=== PATIENT | female | born 1945 | race Caucasian/White ===

== ENCOUNTER → 2018-03-03 | Outpatient (CLI) | payer MEDICARE ==
--- NOTE | 2018-03-03 14:30 | XR ---
EXAMINATION TYPE: XR chest 2V DATE OF EXAM: 03/03/2018 COMPARISON: NONE HISTORY: Cough and shortness of breath TECHNIQUE: Frontal and lateral views of the chest are obtained. FINDINGS: Some strand-like densities are present within the right middle lobe. Cardiac mediastinal s ilhouette, pulmonary vascularity and paulie are within normal limits. Patient is slightly rotated. No p neumothorax or pleural effusion. Atherosclerotic calcifications are noted incidentally. IMPRESSION: There may be some minimal atelectasis or scarring in the right middle lobe, follow-up is recommended to resolution.
== END | disposition home or self-care (01) ==
LOC: RADXRMAIN 10:16
PROVIDERS: ATTEND Family Medicine
DX: R06.02 Shortness of breath (principal)
CPT/HCPCS: 71046

== ENCOUNTER → 2018-07-13 | Outpatient (CLI) | payer MEDICARE ==
--- NOTE | 2018-07-13 14:18 | XR ---
Left hand HISTORY: Chronic joint pain in hand 3 views of the left hand, no comparisons There is joint space loss, hypertrophic change of the carpometacarpal joint of the first digit. The l unate show some lucency possibly due to underlying geode formation. Small ossification is present at the level of the scaphoid waist within the soft tissues laterally measuring only 1 mm of questionable clinical significance, consider remote trauma. Alignment and bone mineralization are within normal l imits. IMPRESSION: Osteoarthritis. Possible geodes within the lunate bone, wrist MRI may be of benefit.
== END ==
LOC: RADXRMAIN 11:22
PROVIDERS: ATTEND Family Medicine
DX: M19.042 Primary osteoarthritis, left hand (principal)

== ENCOUNTER → 2018-08-01 | Outpatient (CLI) | payer MEDICARE ==
--- NOTE | 2018-08-02 11:55 | MR ---
EXAMINATION TYPE: MR wrist LT wo con DATE OF EXAM: 08/01/2018 COMPARISON: 07/13/2018 left hand HISTORY: Wrist pain Standard multiplanar, multisequence MRI departmental protocol Multiplanar, multisequence images of the left wrist were acquired. No Gadavist was utilized. FINDINGS: Flexor retinaculum appears normal. Flexor and extensor tendons have normal low signal. Medi an nerve appears unremarkable. There is diffuse mild increased signal within the lunate. Typical simple cyst is not identified howev er. Consider avascular necrosis of the lunate. Scapholunate space appears preserved the scapholunate ligament however is poorly visualized. Triangul ar fibrocartilage is intact. Remaining osseous structures appear intact. There are some degenerative type changes noted at the carpal metacarpal junction of the first digit. IMPRESSION: 1. Typical subchondral cyst formation within the lunate is not identified. However there is increased signal in a heterogenous distribution. Consider avascular necrosis of lunate within the differential . 2. Scapholunate ligament is not clearly identified. The space however appears preserved.
== END | disposition home or self-care (01) ==
LOC: RADMRIMAIN 12:14
PROVIDERS: ATTEND Family Medicine
DX: M25.832 Other specified joint disorders, left wrist (principal); M89.8X3 Other specified disorders of bone, forearm

== ENCOUNTER → 2018-08-11 | Outpatient (CLI) | payer MEDICARE ==
--- NOTE | 2018-08-11 13:06 | US ---
EXAMINATION TYPE: US gallbladder DATE OF EXAM: 08/11/2018 COMPARISON: NONE CLINICAL HISTORY: K80.20 Cholecystitis. EXAM MEASUREMENTS: Liver Length: 12.7 x 9.1 x 4.0 cm Gallbladder Wall: 0.3 cm CBD: 0.3 cm Right Kidney: 9.1 x 4.0 x 4.2 cm Excessive overlying bowel gas, technically difficult study. Pancreas: Obscured by bowel gas Liver: liver cyst noted measuring 2.3 x 1.9 x 1.4cm Gallbladder: wall appears upper limits of normal in size, limited views due to overlying bowel Evidence for sonographic Rice's sign: CBD: wnl Right Kidney: inferior pole obscured by overlying bowel gas IMPRESSION: 1. Hepatic cyst 2. Gallbladder appears upper limits of normal size with no diagnostic evidence of gallstones. If ther e is concern for gallbladder dysfunction consider HIDA scan.
== END | disposition home or self-care (01) ==
LOC: RADUSMAIN 12:08
PROVIDERS: ATTEND Surgery Plastic and Reconstructive Surgery
DX: K76.89 Other specified diseases of liver (principal)
CPT/HCPCS: 76705

== ENCOUNTER → 2018-08-17 | Outpatient (CLI) | payer MEDICARE ==
--- NOTE | 2018-08-17 16:56 | NM ---
EXAMINATION TYPE: NM hepatobiliary w EF DATE OF EXAM: 08/17/2018 COMPARISON: Ultrasound gallbladder 08/11/2018 HISTORY: Cholecystitis TECHNIQUE: After the intravenous administration of 5.08 mCi Tc 99m Mebrofenin hepatobiliary scintigra phy is performed. Immediate images post injection. FINDINGS: There is satisfactory initial accumulation of tracer by the liver. The gallbladder is visualized wit hin 26 minutes. The small bowel activity is noted within 12 minutes. At one hour 8 ounces of oral e nsure plus is given to mimic CCK and gallbladder ejection fraction is calculated at 76 %, in the norm al range. Therefore there is no scintigraphic evidence of cystic or common bile duct obstruction to suggest acute cholecystitis or gallbladder dyskinesia. IMPRESSION: Exam is within normal limits.
== END | disposition home or self-care (01) ==
LOC: RADNMMAIN 12:53
PROVIDERS: ATTEND Surgery Plastic and Reconstructive Surgery
DX: K80.20 Calculus of gallbladder without cholecystitis without obstruction (principal)
CPT/HCPCS: 78226; A9537

== ENCOUNTER 2018-10-07 08:15 | Day surgery (SDC) | payer MEDICARE ==
[2018-10-01 16:19] VITALS: BMI 22.4
[~2018-10-07 08:15] MED LIST: LIDOCAINE 1% 20 ML VIAL (10MG/ML) FOR IV START INTRADERMA PRN
--- NOTE | 2018-10-07 08:49 | P.GSHP ---
History of Present Illness H&P Date: 10/07/18 CHIEF COMPLAINT: GERD and colon screen HISTORY OF PRESENT ILLNESS: The patient is a 73-year-old female who presents with gastroesophageal reflux disease and need for colon screen. Upper and lower endoscopy were offered for further evaluation and management. PAST MEDICAL HISTORY: Please see list. PAST SURGICAL HISTORY: Please see list. MEDICATIONS: Please see list. ALLERGIES: Please see list. SOCIAL HISTORY: No illicit drug use FAMILY HISTORY: No reports of Crohn disease or ulcerative colitis. REVIEW OF ORGAN SYSTEMS: CONSTITUTIONAL: No reports of fevers or chills. GI: Denies any blood in stools or constipation. PHYSICAL EXAM: VITAL SIGNS: Stable GENERAL: Well-developed pleasant in no acute distress. HEENT: No scleral icterus. Extraocular movements grossly intact. Moist buccal mucosa. NECK: Supple without lymphadenopathy. CHEST: Unlabored respirations. Equal bilateral excursions. CARDIOVASCULAR: Regular rate and rhythm. Distal 2+ pulses. ABDOMEN: Soft, nondistended. MUSCULOSKELETAL: No clubbing, cyanosis, or edema. ASSESSMENT: 1. Gastroesophageal reflux disease 2. Colon screen. PLAN: 1. Recommend proceeding with an upper and lower endoscopy Past Medical History Past Medical History: CVA/TIA, GERD/Reflux, Hyperlipidemia, Hypertension, Liver Disease, Thyroid Disorder Additional Past Medical History / Comment(s): hx hepatitis b. hx colon polyps, indigestion,recent issue with blood pressure dropping History of Any Multi-Drug Resistant Organisms: None Reported Past Surgical History: No Surgical Hx Reported Additional Past Anesthesia/Blood Transfusion Reaction / Comment(s): pt reports hepatitis b from blood transfusion Smoking Status: Never smoker - Past Family History Father Family Medical History: Cancer Medications and Allergies Home Medications Medication Instructions Recorded Confirmed Type Aspirin [Adult Low Dose Aspirin EC] 81 mg PO DAILY 10/01/18 10/01/18 History Atorvastatin [Lipitor] 20 mg PO DAILY 10/01/18 10/01/18 History Biotin 5,000 mcg PO DAILY 10/01/18 10/01/18 History Calcium Magnesium Zinc 1 tab PO DAILY 10/01/18 10/01/18 History Cholecalciferol [Vitamin D3] 1,000 unit PO DAILY 10/01/18 10/01/18 History Hydrochlorothiazide [Hydrodiuril] 12.5 mg PO DAILY 10/01/18 10/01/18 History Levothyroxine Sodium [Synthroid] 25 mcg PO DAILY 10/01/18 10/01/18 History Lisinopril [Zestril] 30 mg PO DAILY 10/01/18 10/01/18 History Multivitamin/Iron/Folic Acid 1 each PO DAILY 10/01/18 10/01/18 History [Centrum Adults Tablet] Venlafaxine HCl [Effexor XR] 150 mg PO DAILY 10/01/18 10/01/18 History Allergies Allergy/AdvReac Type Severity Reaction Status Date / Time No Known Allergies Allergy Unverified 10/01/18 15:45
[2018-10-07 09:08] VITALS: TEMP 96.6
[2018-10-07] MEDS: LACTATED RINGERS 1,000 ML IV SCH ×2 (09:12→09:13)
[2018-10-07] MEDS ORDERED: PROPOFOL 10 MG/ML 20 ML VIAL IV ONE (09:14)
[2018-10-07] MEDS ORDERED: GLYCOPYRROLATE 0.2 MG/ML 2 ML VIAL ONE (09:14)
[2018-10-07] MEDS ORDERED: LIDOCAINE 1% INJ 10MG/ML (20 ML MDV) ONE (09:14)
--- NOTE | 2018-10-07 09:47 | P.PCN ---
Date of Procedure: 10/07/18 Description of Procedure: PREOPERATIVE DIAGNOSIS: Gastroesophageal reflux disease. History of gastric ulcers POSTOPERATIVE DIAGNOSIS: Gastroesophageal reflux disease. Gastric ulcers along the gastric fundus Diaphragmatic hiatal hernia OPERATION: Esophagogastroduodenoscopy with biopsies along antrum. SURGEON: Chanda Peraza MD ANESTHESIA: MAC. INDICATIONS: The patient is a 44-year-old female who presents with a history of reflux disease. Benefits and risks of the procedure were described. Informed consent was obtained. DESCRIPTION: The patient was brought into the endoscopy suite and laid in the left lateral decubitus position. An Olympus gastroscope was passed along the posterior oropharynx down to the distal esophagus where the squamocolumnar junction was encountered at 35 cm from the incisors. The stomach was entered and no bile reflux was found. Additional findings are listed below. Biopsies with cold forceps were obtained of the antrum. The first through third portion of the duodenum was examined and unremarkable. Retroflexion of the scope confirmed Hill grade 2 lower esophageal valve. The squamocolumnar junction demonstrated LA grade A erosive esophagitis. The stomach was desufflated. The patient tolerated the procedure well. FINDINGS: Squamocolumnar junction 35 cm from the incisors. Diaphragmatic hiatus at 40 cm. Hiatal hernia, 5 cm Hill grade 2 lower esophageal valve. LA grade A erosive esophagitis. Hypertensive pylorus No active duodenitis. Gastric ulcer, superficial along gastric fundus biopsied RECOMMENDATIONS: Upper endoscopy as needed.
--- NOTE | 2018-10-07 09:50 | P.PCN ---
Date of Procedure: 10/07/18 Description of Procedure: PREOPERATIVE DIAGNOSIS: Personal history of colon polyps POSTOPERATIVE DIAGNOSIS: Personal history of colon polyps Diverticulosis, scattered. Internal and external hemorrhoids, grade 4 OPERATION: Colonoscopy to the ileocecal valve and appendiceal orifice. SURGEON: Chanda Peraza MD. ANESTHESIA: MAC. INDICATIONS: The patient is a 73-year-old female who presents for colonoscopy screening. She has history of colon polyps. Last colonoscopy 5 years ago. Benefits and risks were described and informed consent was obtained. DESCRIPTION OF PROCEDURE: The patient had undergone Gatorade, MiraLAX and Dulcolax prep. She had been brought into the operating room and laid in the left lateral decubitus position. After adequate intravenous sedation, the rectum was examined with 2% lidocaine jelly. Large external hemorrhoids were encountered. The rectal tone was within normal limits. No lesions were palpated in the rectal vault. An Olympus colonoscope was advanced until the ileocecal valve and appendiceal orifice were clearly viewed. The prep was excellent with clear visualization of the mucosal folds. She had mild bradycardia during advancement of the scope along the splenic flexure treated by anesthesia. Abdominal wall pressure was used to advance the scope. The scope was removed with visualization of each mucosal fold. Scattered diverticulosis was encountered. No colonic polyps were found. No evidence of focal colitis was found. Retroflexion of the scope demonstrated grade 4 internal hemorrhoids without active bleeding or inflammation. The colon was desufflated. The patient had tolerated the procedure well. Withdrawal time was over 6 minutes. FINDINGS: Internal hemorrhoids, grade 4 External prolapsed hemorrhoids, grade 4 No arteriovenous malformations. No adenomatous polyps. No focal colitis. Sigmoid diverticulosis RECOMMENDATIONS: May benefit from [facility] Lower endoscopy in 5 years, 2022, as needed Plan - Discharge Summary New Discharge Prescriptions: No Action Cholecalciferol [Vitamin D3] 1,000 unit PO DAILY Biotin 5,000 mcg PO DAILY Venlafaxine HCl [Effexor XR] 150 mg PO DAILY Multivitamin/Iron/Folic Acid [Centrum Adults Tablet] 1 each PO DAILY Aspirin [Adult Low Dose Aspirin EC] 81 mg PO DAILY Lisinopril [Zestril] 30 mg PO DAILY Levothyroxine Sodium [Synthroid] 25 mcg PO DAILY Calcium Magnesium Zinc 1 tab PO DAILY Hydrochlorothiazide [Hydrodiuril] 12.5 mg PO DAILY Atorvastatin [Lipitor] 20 mg PO DAILY Discharge Medication List Aspirin [Adult Low Dose Aspirin EC] 81 mg PO DAILY 10/01/18 [History] Atorvastatin [Lipitor] 20 mg PO DAILY 10/01/18 [History] Biotin 5,000 mcg PO DAILY 10/01/18 [History] Calcium Magnesium Zinc 1 tab PO DAILY 10/01/18 [History] Cholecalciferol [Vitamin D3] 1,000 unit PO DAILY 10/01/18 [History] Hydrochlorothiazide [Hydrodiuril] 12.5 mg PO DAILY 10/01/18 [History] Levothyroxine Sodium [Synthroid] 25 mcg PO DAILY 10/01/18 [History] Lisinopril [Zestril] 30 mg PO DAILY 10/01/18 [History] Multivitamin/Iron/Folic Acid [Centrum Adults Tablet] 1 each PO DAILY 10/01/18 [ History] Venlafaxine HCl [Effexor XR] 150 mg PO DAILY 10/01/18 [History]
[2018-10-07 09:56] VITALS: RESP 16
[2018-10-07 10:45] VITALS: BP 110/60; PULSE 88
== END 2018-10-07 10:43 | disposition home or self-care (01) ==
LOC: ORWHC2ENDO 08:15
PROVIDERS: ATTEND Surgery Plastic and Reconstructive Surgery
DX: Z12.11 Encounter for screening for malignant neoplasm of colon (principal); K22.10 Ulcer of esophagus without bleeding; K44.9 Diaphragmatic hernia without obstruction or gangrene; K25.9 Gastric ulcer, unspecified as acute or chronic, without hemorrhage or perforation; K57.30 Diverticulosis of large intestine without perforation or abscess without bleeding; K64.3 Fourth degree hemorrhoids; Z86.010 Personal history of colon polyps; R00.1 Bradycardia, unspecified; K21.9 Gastro-esophageal reflux disease without esophagitis; E78.5 Hyperlipidemia, unspecified; I10 Essential (primary) hypertension; E07.9 Disorder of thyroid, unspecified; F39 Unspecified mood [affective] disorder; Z86.73 Personal history of transient ischemic attack (TIA), and cerebral infarction without residual deficits; Z87.11 Personal history of peptic ulcer disease; Z86.19 Personal history of other infectious and parasitic diseases; Z79.82 Long term (current) use of aspirin; Z79.890 Hormone replacement therapy; Z79.899 Other long term (current) drug therapy
CPT/HCPCS: 88305; 43239; J2001; J2704; G0105; 45378

== ENCOUNTER → 2019-03-08 | Outpatient (CLI) | payer MEDICARE ==
--- NOTE | 2019-03-08 11:56 | XR ---
EXAMINATION TYPE: XR chest 2V DATE OF EXAM: 03/08/2019 COMPARISON: 03/03/2018 TECHNIQUE: PA and lateral views submitted. HISTORY: Cough FINDINGS: The lungs are clear and there is no pneumothorax, pleural effusion, or focal pneumonia. Biapical pl eural thickening. No overt failure. Hypertrophic and degenerative changes spine. Hyperinflation sugge sts COPD. IMPRESSION: 1. No acute process.
== END | disposition home or self-care (01) ==
LOC: RADXRMAIN 11:31
PROVIDERS: ATTEND Family Medicine
DX: J94.8 Other specified pleural conditions (principal)
CPT/HCPCS: 71046

== ENCOUNTER → 2020-01-18 | Outpatient (CLI) | payer MEDICARE ==
--- NOTE | 2020-01-18 16:15 | NM ---
EXAMINATION TYPE: NM hepatobiliary w EF DATE OF EXAM: 01/18/2020 COMPARISON: Previous exam 08/17/2018 HISTORY: Cholecystitis TECHNIQUE: After the intravenous administration of 4.38 mCi Tc 99m Mebrofenin hepatobiliary scintigra phy is performed. Immediate images post injection. FINDINGS: There is satisfactory initial accumulation of tracer by the liver. The gallbladder is visualized wit hin 26 minutes. The small bowel activity is noted within 16 minutes. At one hour 8 ounces of oral e nsure plus is given to mimic CCK and gallbladder ejection fraction is calculated at 90 %, above the u pper limit of the normal range. Therefore there is no scintigraphic evidence of cystic or common kelin e duct obstruction to suggest acute cholecystitis or gallbladder dyskinesia. IMPRESSION: Findings may represent hyper dynamic gallbladder.
== END | disposition home or self-care (01) ==
LOC: RADNMMAIN 12:48
PROVIDERS: ATTEND Surgery Plastic and Reconstructive Surgery
DX: K81.9 Cholecystitis, unspecified (principal)
CPT/HCPCS: 78226; A9537

== ENCOUNTER 2020-02-03 08:06 | Day surgery (SDC) | payer MEDICARE ==
[2020-02-01 08:55] VITALS: BMI 23.3
[~2020-02-03 08:06] MED LIST changes: +LACTATED RINGERS 1,000 ML IV SCH; +LIDOCAINE 1% (10MG/ML) FOR IV START INTRADERMA PRN; -LIDOCAINE 1% 20 ML VIAL (10MG/ML) FOR IV START INTRADERMA PRN
[2020-02-03 09:09] VITALS: RESP 16; TEMP 98.3
--- NOTE | 2020-02-03 10:13 | P.GSHP ---
History of Present Illness H&P Date: 02/03/20 CHIEF COMPLAINT: Colon screen HISTORY OF PRESENT ILLNESS: The patient is a 74-year-old female who presents for colon screen. Lower endoscopy was offered for further evaluation and management. PAST MEDICAL HISTORY: Please see list. PAST SURGICAL HISTORY: Please see list. MEDICATIONS: Please see list. ALLERGIES: Please see list. SOCIAL HISTORY: No illicit drug use FAMILY HISTORY: No reports of Crohn disease or ulcerative colitis. REVIEW OF ORGAN SYSTEMS: CONSTITUTIONAL: No reports of fevers or chills. PHYSICAL EXAM: VITAL SIGNS: Stable GENERAL: Well-developed pleasant in no acute distress. HEENT: No scleral icterus. Extraocular movements grossly intact. Moist buccal mucosa. NECK: Supple without lymphadenopathy. CHEST: Unlabored respirations. Equal bilateral excursions. CARDIOVASCULAR: Regular rate and rhythm. Distal 2+ pulses. ABDOMEN: Soft, nontender, nondistended. MUSCULOSKELETAL: No clubbing, cyanosis, or edema. ASSESSMENT: 1. Colon screen. PLAN: 1. Recommend proceeding with a lower endoscopy Past Medical History Past Medical History: CVA/TIA, GERD/Reflux, Hyperlipidemia, Hypertension, Liver Disease, Rheumatoid Arthritis (RA), Skin Disorder, Thyroid Disorder Additional Past Medical History / Comment(s): hx hepatitis b, hx colon polyps, hx TIA- no residual effects, peptic ulcer, hiatal hernia, diarrhea, diverticulitis, diverticulosis, "gallbladder not working", skin scaling and itching of scalp, urinary leakage, History of Any Multi-Drug Resistant Organisms: None Reported Past Surgical History: No Surgical Hx Reported Additional Past Surgical History / Comment(s): oral sugery, colonoscopy, kelin cataracts Additional Past Anesthesia/Blood Transfusion Reaction / Comment(s): pt reports hepatitis b from blood transfusion Smoking Status: Never smoker - Past Family History Father Family Medical History: Cancer Medications and Allergies Home Medications Medication Instructions Recorded Confirmed Type Aspirin [Adult Low Dose Aspirin EC] 81 mg PO DAILY 10/01/18 02/03/20 History Atorvastatin [Lipitor] 20 mg PO DAILY 10/01/18 02/03/20 History Biotin 5,000 mcg PO DAILY 10/01/18 02/03/20 History Cholecalciferol [Vitamin D3] 1,000 unit PO DAILY 10/01/18 02/03/20 History Levothyroxine Sodium [Synthroid] 25 mcg PO DAILY 10/01/18 02/03/20 History Lisinopril [Zestril] 30 mg PO DAILY 10/01/18 02/03/20 History Multivitamin/Iron/Folic Acid 1 each PO DAILY 10/01/18 02/03/20 History [Centrum Adults Tablet] Lactobacillus Rhamnosus GG 1 each PO DAILY 02/01/20 02/03/20 History [Culturelle] Mirabegron [Myrbetriq] 50 mg PO DAILY 02/01/20 02/03/20 History Mood And Stress Probiotic 1 cap PO DIRECTED PRN 02/01/20 02/03/20 History Omeprazole 20 mg PO DAILY PRN 02/01/20 02/03/20 History Allergies Allergy/AdvReac Type Severity Reaction Status Date / Time No Known Allergies Allergy Unverified 02/03/20 09:02 Surgical - Exam Vital Signs Temp Pulse Resp BP Pulse Ox 98.3 F 66 16 128/60 98 02/03/20 08:59 02/03/20 08:59 02/03/20 08:59 02/03/20 08:59 02/03/20 08:59
[2020-02-03] MEDS ORDERED: PROPOFOL 10 MG/ML 20 ML VIAL IV ONE (10:18)
--- NOTE | 2020-02-03 10:49 | P.PCN ---
Date of Procedure: 02/03/20 Description of Procedure: PREOPERATIVE DIAGNOSIS: Diarrhea Change in bowel habits POSTOPERATIVE DIAGNOSIS: Diarrhea Change in bowel habits Diverticulosis, scattered Microscopic colitis OPERATION: Colonoscopy to the ileocecal valve and appendiceal orifice. Colonoscopy with random cold forceps biopsies for microscopic colitis SURGEON: Chanda Peraza MD. ANESTHESIA: MAC. INDICATIONS: The patient is a 74-year-old female who presents with change in bowel habits and diarrhea. Benefits and risks were described and informed consent was obtained. DESCRIPTION OF PROCEDURE: The patient had undergone Suprep. He had been brought into the operating room and laid in the left lateral decubitus position. After adequate intravenous sedation, the rectum was examined with 2% lidocaine jelly. External hemorrhoids were encountered. The rectal tone was within normal limits. No lesions were palpated in the rectal vault. An adult colonoscope was advanced to the descending colon however a stricture was identified from diverticulosis. The scope was changed to a pediatric colonoscope. An Olympus colonoscope was advanced until the ileocecal valve and appendiceal orifice were clearly viewed. The prep was excellent with clear visualization of the mucosal folds. The scope was removed with visualization of each mucosal fold. Scattered diverticulosis was encountered. No colonic polyps were found. Random biopsies were obtained throughout the colon to address microscopic colitis. Stool cultures were obtained for C. diff, stool cultures, and stool assays. Retroflexion of the scope demonstrated grade 3 internal hemorrhoids without active bleeding or inflammation. The colon was desufflated. The patient had tolerated the procedure well. Withdrawal time was over 6 minutes. FINDINGS: Aronchick preparation quality scale 1 (1-5) Internal hemorrhoids, grade 3 External prolapsed hemorrhoids. No arteriovenous malformations. No adenomatous polyps. Stricture alone descending colon 50 cm from the anal verge requiring pediatric colonoscope Random biopsies obtained to evaluate for microscopic colitis Stool assays and stool cultures obtained for colitis RECOMMENDATIONS: Lower endoscopy as needed Plan - Discharge Summary New Discharge Prescriptions: Continue Cholecalciferol [Vitamin D3 (25 Mcg = 1000 Iu)] 1,000 unit PO DAILY Biotin 5,000 mcg PO DAILY Multivitamin/Iron/Folic Acid [Centrum Adults Tablet] 1 each PO DAILY Aspirin [Adult Low Dose Aspirin EC] 81 mg PO DAILY Lisinopril [Zestril] 30 mg PO DAILY Levothyroxine Sodium [Synthroid] 25 mcg PO DAILY Atorvastatin [Lipitor] 20 mg PO DAILY Lactobacillus Rhamnosus GG [Culturelle] 1 each PO DAILY Mirabegron [Myrbetriq] 50 mg PO DAILY Omeprazole 20 mg PO DAILY PRN PRN Reason: gerd Mood And Stress Probiotic 1 cap PO DIRECTED PRN PRN Reason: stressl Discharge Medication List Aspirin [Adult Low Dose Aspirin EC] 81 mg PO DAILY 10/01/18 [History] Atorvastatin [Lipitor] 20 mg PO DAILY 10/01/18 [History] Biotin 5,000 mcg PO DAILY 10/01/18 [History] Cholecalciferol [Vitamin D3 (25 Mcg = 1000 Iu)] 1,000 unit PO DAILY 10/01/18 [History] Levothyroxine Sodium [Synthroid] 25 mcg PO DAILY 10/01/18 [History] Lisinopril [Zestril] 30 mg PO DAILY 10/01/18 [History] Multivitamin/Iron/Folic Acid [Centrum Adults Tablet] 1 each PO DAILY 10/01/18 [History] Lactobacillus Rhamnosus GG [Culturelle] 1 each PO DAILY 02/01/20 [History] Mirabegron [Myrbetriq] 50 mg PO DAILY 02/01/20 [History] Mood And Stress Probiotic 1 cap PO DIRECTED PRN 02/01/20 [History] Omeprazole 20 mg PO DAILY PRN 02/01/20 [History] Follow up Appointment(s)/Referral(s): Chanda Peraza MD [STAFF PHYSICIAN] - 02/17/20 Patient Instructions/Handouts: Microscopic Colitis (DC), Diverticulosis Diet (GEN), Diverticulosis (DC) Activity/Diet/Wound Care/Special Instructions: Colonoscopy as needed Discharge Disposition: HOME SELF-CARE
[2020-02-03 11:26] VITALS: BP 110/68; PULSE 67
== END 2020-02-03 11:43 | disposition home or self-care (01) ==
LOC: ORWHC2ENDO 08:06
PROVIDERS: ATTEND Surgery Plastic and Reconstructive Surgery
DX: K52.9 Noninfective gastroenteritis and colitis, unspecified (principal); K57.30 Diverticulosis of large intestine without perforation or abscess without bleeding; K64.4 Residual hemorrhoidal skin tags; K56.609 Unspecified intestinal obstruction, unspecified as to partial versus complete obstruction; K64.2 Third degree hemorrhoids; I10 Essential (primary) hypertension; E78.5 Hyperlipidemia, unspecified; K21.9 Gastro-esophageal reflux disease without esophagitis; M06.9 Rheumatoid arthritis, unspecified; Z79.890 Hormone replacement therapy; Z79.82 Long term (current) use of aspirin; Z79.899 Other long term (current) drug therapy; Z86.73 Personal history of transient ischemic attack (TIA), and cerebral infarction without residual deficits; Z86.19 Personal history of other infectious and parasitic diseases; Z86.010 Personal history of colon polyps; Z87.11 Personal history of peptic ulcer disease; Z98.41 Cataract extraction status, right eye; Z98.42 Cataract extraction status, left eye; Z98.890 Other specified postprocedural states; Z80.9 Family history of malignant neoplasm, unspecified
CPT/HCPCS: 88305; 87324; 83993; 87045; 83630; 87046; 45380; J2704

== ENCOUNTER → 2021-10-26 | Outpatient (CLI) | payer MEDICARE ==
--- NOTE | 2021-10-26 11:17 | XR ---
EXAMINATION TYPE: XR chest 2V DATE OF EXAM: 10/26/2021 COMPARISON: 03/08/2019 TECHNIQUE: PA and lateral views submitted. HISTORY: Cough FINDINGS: The lungs are clear and there is no pneumothorax, pleural effusion, or focal pneumonia. Heart size normal. Biapical pleural thickening. No overt failure. Hypertrophic and degenerative change of the sp ine. Linear changes in the retrosternal region likely related atelectasis or scar. Diffuse osteopenia . IMPRESSION: 1. No acute process. Correlate for COPD.
== END | disposition home or self-care (01) ==
LOC: RADXRMAIN 10:12
PROVIDERS: ATTEND Family Medicine
DX: R05.9 Cough, unspecified (principal)
CPT/HCPCS: 71046

== ENCOUNTER → 2021-12-10 | Outpatient (CLI) | payer MEDICARE ==
--- NOTE | 2021-12-10 13:07 | US ---
EXAMINATION TYPE: US pelvis complete transvag DATE OF EXAM: 12/10/2021 COMPARISON: NONE CLINICAL HISTORY: R19.00 Pelvic Mass. Pelvic mass seen by ordering physician at outside facility per patient TECHNIQUE: Transvaginal (TV) and Transabdominal (TA) . Transabdominal sonographic images of the pel vis were acquired. Transvaginal sonographic images were medically necessary to better assess the fol lowing anatomy: Uterus Date of LMP: Patient states in her 50's EXAM MEASUREMENTS: Uterus: 4.1 x 3.0 x 2.0 cm Endometrial Stripe: 0.2 cm Right Ovary: not seen cm Left Ovary: not seen cm 1. Uterus: Anteverted Heterogeneous with no focal mass seen 2. Endometrium: echogenic 3. Right Ovary: not seen 4. Left Ovary: not seen 5. Bilateral Adnexa: Multiple peristalsing bowel loops 6. Posterior cul-de-sac: Multiple peristalsing bowel loops No pelvic mass seen at this time, Multiple peristalsing bowel loops seen. IMPRESSION: 1. Examination is somewhat limited due to multiple loops of bowel present. 2. No suspicious mass identified
== END | disposition home or self-care (01) ==
LOC: RADUSWWP 12:15
PROVIDERS: ATTEND Family Medicine
DX: R19.00 Intra-abdominal and pelvic swelling, mass and lump, unspecified site (principal)
CPT/HCPCS: 76830; 76856

== ENCOUNTER → 2022-04-02 | Outpatient (CLI) | payer MEDICARE ==
--- NOTE | 2022-04-03 03:07 | MR ---
EXAMINATION TYPE: MR brain wo con DATE OF EXAM: 04/02/2022 COMPARISON: None HISTORY: Headaches. Multiplanar multiecho imaging of the brain performed without contrast. The ventricles and sulci appear normal for age. There is no mass effect or midline shift. There is no sign of intracranial hemorrhage. Corpus callosum is intact. Diffusion images show no evidence of an acute infarct. On the T2 and FLAIR images there are a few foci of increased signal in the white matter in both poste rior temporal lobes and occipital lobes that measure up to 4 mm. Total numbers less than 10. Sella turcica is normal. No evidence of orbital mass. IMPRESSION: There is minimal white matter changes that could relate to some mild microvascular ischemia. Otherwis e negative exam. No evidence of cortical infarct.
--- NOTE | 2022-04-03 07:07 | MR ---
EXAMINATION TYPE: MR angio head wo con DATE OF EXAM: 04/02/2022 COMPARISON: NONE HISTORY: Headaches. TECHNIQUE: Time of flight images focusing on the [place] of [place] were performed without contrast.. 2-D and 3-D postprocessing imaging is performed on independent workstation and reviewed. FINDINGS: Codominant vertebral arteries patent to basilar junction. Patent bilateral posterior commun icating arteries including larger caliber right sided artery. Patent anterior communicating artery ne ar image 106. No significant focal stenosis or aneurysm in the posterior or anterior circulation. IMPRESSION: No aneurysm at the level of the [place] of [place].
== END | disposition home or self-care (01) ==
LOC: RADMRIMAIN 14:25
PROVIDERS: ATTEND Family Medicine
DX: R51.9 Headache, unspecified (principal); R90.89 Other abnormal findings on diagnostic imaging of central nervous system
CPT/HCPCS: 70544; 70551

== ENCOUNTER → 2022-04-17 | Outpatient (CLI) | payer MEDICARE ==
--- NOTE | 2022-04-17 20:49 | CT ---
EXAMINATION TYPE: CT abdomen pelvis wo con DATE OF EXAM: 04/17/2022 COMPARISON: No previous CT scan is available for comparison HISTORY: diverticulitis of sigmoid colon w/o rupture CT DLP: 349.50 mGycm Automated exposure control for dose reduction was used. TECHNIQUE: Helical acquisition of images was performed from the lung bases through the pelvis. FINDINGS: LUNG BASES: Bilateral anterior basal subsegmental pulmonary atelectasis. Coronary arterial calcificat ions. LIVER/GB: 3.5 cm right hepatic lobe cyst. No other definite hepatic focal lesion by this unenhanced C T scan. Grossly unremarkable gallbladder. PANCREAS: No significant abnormality is seen. SPLEEN: No significant abnormality is seen. ADRENALS: No significant abnormality is seen. KIDNEYS: No significant abnormality is seen. FREE AIR: No free air is visualized RETROPERITONEAL ADENOPATHY: None visualized REPRODUCTIVE ORGANS: No gross uterine or adnexal mass. URINARY BLADDER: No significant abnormality is seen. PELVIC ADENOPATHY: None visualized. OSSEOUS STRUCTURES: Suspected osteopenia. Degenerative changes of the lower lumbar spine. No aggress delia bone lesion. BOWEL: Unremarkable stomach. Duodenal diverticulum, otherwise unremarkable duodenum and small bowel. Colonic diverticulosis most evident involving the sigmoid colon. No evidence of acute diverticulitis . Fecal loading of the colon suggestive of constipation. OTHER: Arterial atherosclerotic calcification. No sizable ascites. IMPRESSION: Colonic diverticulosis without evidence of acute diverticulitis. Suspected constipation, please corre late clinically. Other findings as detailed above.
== END | disposition home or self-care (01) ==
LOC: RADCTMAIN 14:42
PROVIDERS: ATTEND Surgery Plastic and Reconstructive Surgery
DX: K57.30 Diverticulosis of large intestine without perforation or abscess without bleeding (principal)
CPT/HCPCS: 36415; 74176; 82565; 84520

== ENCOUNTER → 2022-08-15 | Outpatient (CLI) | payer MEDICARE ==
[2022-08-15 18:49] LABS: HCT 37.6 % (37.2-46.3); HGB 12.5 g/dL (12.0-15.0); MCH 30.4 pg (27.0-32.0); MCHC 33.2 g/dL (32.0-37.0); MCV 91.5 fL (80.0-97.0); Mean Platelet Volume 11.7 fL (9.5-12.2); NRBC Per 100 WBC 0 /100 WBCS (0.0-0.0); Platelet Count 326 X 10*3/uL (140-440); RBC 4.11 X 10*6/uL (4.10-5.20); RDW 12.8 % (11.5-14.5); WBC 4.86 X 10*3/uL (4.50-10.00)
[2022-08-15 23:14] LABS: African American GFR (CKD) 45.2 (60.0-200.0); Albumin 4.9 g/dL (3.8-4.9); Albumin/Globulin Ratio 1.53 (1.60-3.17); Anion Gap 11.8 mmol/L (10.00-18.00); BUN/Creat Ratio 40.23 Ratio (12.00-20.00); Blood Urea Nitrogen 52.3 mg/dL (9.0-27.0); Globulin 3.2 g/dL (1.6-3.3); Potassium 4.3 mmol/L (3.5-5.5); Total Bilirubin 0.2 mg/dL (0.30-1.20)
== END | disposition home or self-care (01) ==
LOC: LABWHC1 14:48
PROVIDERS: ATTEND Surgery Plastic and Reconstructive Surgery
DX: Z01.812 Encounter for preprocedural laboratory examination (principal)
CPT/HCPCS: 36415; 80053; 85027

== ENCOUNTER 2022-08-22 10:25 | Inpatient (IN) | payer MEDICARE ==
[2022-08-21 13:40] VITALS: BMI 22.1
--- NOTE | 2022-08-22 08:31 | P.GSHP ---
History of Present Illness H&P Date: 08/22/22 CHIEF COMPLAINT: History of sigmoid diverticulitis HISTORY OF PRESENT ILLNESS: The patient is a 77-year-old male with long-standing history of sigmoid diverticulitis. She presents for partial bowel obstruction. She reports abdominal gas. Abdominal pain for over 6 months. He presents for surgical resection. PAST MEDICAL HISTORY: Please see list. PAST SURGICAL HISTORY: Please see list. MEDICATIONS: Please see list. ALLERGIES: Please see list. SOCIAL HISTORY: No illicit drug use FAMILY HISTORY: No reports of Crohn disease or ulcerative colitis. REVIEW OF ORGAN SYSTEMS: CONSTITUTIONAL: Denies any fever or chills. HEENT: Denies any trouble with vision or nosebleeds. No difficulty swallowing. LYMPHATIC: The patient denies any lumps and bumps around the neck. ENDOCRINE: Denies any thyroid disorders. RESPIRATORY: Denies pneumonia. Denies any troubles with breathing or dyspnea on exertion. CARDIOVASCULAR: Has hypertensive heart disease. Cardiac clearance obtained. GASTROINTESTINAL: Has chronic diverticulitis. Has gastroesophageal reflux disease GENITOURINARY: Has increased urinary frequency. MUSCULOSKELETAL: Has back pain, stiffness, joint arthritis. NEUROLOGIC: Denies any numbness or tingling along the distal extremities. No seizure disorders or headaches. PSYCHIATRIC: Denies depression or suidical ideation. HEMATOLOGIC: Denies any abnormal bleeding or bruising. PHYSICAL EXAM: VITAL SIGNS: Stable GENERAL: Well-developed pleasant in no acute distress. HEENT: No scleral icterus. Extraocular movements grossly intact. Moist buccal mucosa. NECK: Supple without lymphadenopathy. CHEST: Unlabored respirations. Equal bilateral excursions. CARDIOVASCULAR: Regular rate and rhythm. Distal 2+ pulses. ABDOMEN: Soft, nontender, nondistended. MUSCULOSKELETAL: No clubbing, cyanosis, or edema. NERUO: Cranial nerves 2-12 grossly intact. PSYCH: Alert and oriented to person place and time. ASSESSMENT: 1. Chronic diverticulitis PLAN: 1. Benefits and risks of surgical robotic sigmoid resection was reviewed in detail. Robotic-assisted approach was also described. 2. Enhanced colon recovery program. 3. DVT prophylaxis. 4. Antibiotic prophylaxis. 5. Inpatient hospitalization greater than 2 nights. 6. She is reversed due to pre-existing cardiopulmonary Past Medical History Past Medical History: COPD, CVA/TIA, GERD/Reflux, Hyperlipidemia, Hypertension, Liver Disease, Osteoarthritis (OA), Rheumatoid Arthritis (RA), Skin Disorder, Thyroid Disorder Additional Past Medical History / Comment(s): hx hepatitis b, hx colon polyps, hx TIA- no residual effects, peptic ulcer, hiatal hernia, diverticulitis, diverticulosis, CHRONIC KIDNEY DISEASE STAGE 4, HEPATITIS B-1966, History of Any Multi-Drug Resistant Organisms: None Reported Past Surgical History: No Surgical Hx Reported Additional Past Surgical History / Comment(s): oral sugery, colonoscopy, kelin cataracts Additional Past Anesthesia/Blood Transfusion Reaction / Comment(s): pt reports hepatitis b from blood transfusion Smoking Status: Never smoker - Past Family History Father Family Medical History: Cancer Medications and Allergies Home Medications Medication Instructions Recorded Confirmed Type Aspirin [Adult Low Dose Aspirin EC] 81 mg PO DAILY 10/01/18 08/21/22 History Atorvastatin [Lipitor] 20 mg PO HS 10/01/18 08/21/22 History Cholecalciferol [Vitamin D3 (25 1,000 unit PO DAILY 10/01/18 08/21/22 History Mcg = 1000 Iu)] Levothyroxine Sodium [Synthroid] 25 mcg PO DAILY 10/01/18 08/21/22 History Multivitamin/Iron/Folic Acid 1 each PO DAILY 10/01/18 08/21/22 History [Centrum Adults Tablet] Mirabegron [Myrbetriq] 50 mg PO DAILY 02/01/20 08/21/22 History Famotidine [Pepcid] 40 mg PO HS 08/21/22 08/21/22 History Mirtazapine [Remeron] 30 mg PO HS 08/21/22 08/21/22 History amLODIPine [Norvasc] 10 mg PO DAILY 08/21/22 08/21/22 History Allergies Allergy/AdvReac Type Severity Reaction Status Date / Time No Known Allergies Allergy Unverified 08/21/22 12:51
[~2022-08-22 10:25] MED LIST changes: +Antibiotics per Pharmacy 1 EACH MISC MISCELLANE PRN; -LACTATED RINGERS 1,000 ML IV SCH
[2022-08-22] MEDS: LACTATED RINGERS 1,000 ML IV SCH (11:09)
[2022-08-22] MEDS ORDERED: LIDOCAINE 2% INJ 20 MG/ML (2 ML VIAL) ONE (11:18)
[2022-08-22] MEDS ORDERED: PROPOFOL 10 MG/ML 20 ML VIAL IV ONE (11:18)
[2022-08-22 11:27] LABS: Basophils # (A) 0.1 k/uL (0-0.2); Basophils % (A) 1 %; Eosinophils # (A) 0.1 k/uL (0-0.7); Eosinophils % (A) 2 %; HCT 38.9 % (34.0-46.0); HGB 13.3 gm/dL (11.4-16.0); Lymphocytes # (A) 1.4 k/uL (1.0-4.8); Lymphocytes % (A) 30 %; MCH 31.5 pg (25.0-35.0); MCHC 34.2 g/dL (31.0-37.0); MCV 92.3 fL (80.0-100.0); Mean Platelet Volume 8.8; Monocytes # (A) 0.4 k/uL (0-1.0); Monocytes % (A) 8 %; Neutrophils # (A) 2.6 k/uL (1.3-7.7); Neutrophils % (A) 55 %; Platelet Count 302 k/uL (150-450); RBC 4.21 m/uL (3.80-5.40); RDW 12.6 % (11.5-15.5); WBC 4.6 k/uL (3.8-10.6)
[2022-08-22 11:36] LABS: Albumin 5.1 g/dL (3.5-5.0); Calcium 9.7 mg/dL (8.4-10.2); Potassium 3.3 mmol/L (3.5-5.1); Total Bilirubin 0.6 mg/dL (0.2-1.3); Total Protein 8.1 g/dL (6.3-8.2)
--- NOTE | 2022-08-22 11:43 | P.PCN ---
Date of Procedure: 08/22/22 Description of Procedure: PREOPERATIVE DIAGNOSIS: Sigmoid diverticulitis with stricture POSTOPERATIVE DIAGNOSIS: Large bowel obstruction due to sigmoid stricture OPERATION: Colonoscopy to the sigmoid colon. SURGEON: Chanda Peraza MD. ANESTHESIA: MAC. INDICATIONS: The patient is a 76-year-old female who presents with change in bowel habits due to sigmoid diverticulitis. Benefits and risks were described and informed consent was obtained. DESCRIPTION OF PROCEDURE: The patient had undergone Sutab prep. She had been brought into the operating room and laid in the left lateral decubitus position. After adequate intravenous sedation, the rectum was examined with 2% lidocaine jelly. External hemorrhoids were encountered. The rectal tone was loose. No lesions were palpated in the rectal vault. An Olympus pediatric colonoscope was advanced along the rectum to a very tortuous sigmoid colon. Despite multiple maneuvers, the sigmoid colon had severe tortuosity preventing further advancement of scope. The scope was passed to 25 cm from the anal verge. As the patient posed high risk for pe rforation with persistence of the procedure, the procedure was discontinued. The colon was desufflated. The patient had tolerated the procedure well. Withdrawal time was over 6 minutes. FINDINGS: [place] preparation quality scale 3 (1-5) Tortuous sigmoid colon with stricture preventing further advancement of the scope. External prolapsed hemorrhoids. Scope advanced to sigmoid colon at 25 cm. RECOMMENDATIONS: Due to large bowel stricture, sigmoid colectomy, robotic-assisted approach described
[2022-08-22] MEDS ORDERED: SODIUM CHLORIDE 0.9% 1,000 ML IV ONE (11:44)
[2022-08-22] MEDS ORDERED: PEG 3350 (420 GM/BTL) + LYTES 4,000 ML BOTTLE PO ONE (12:45)
[2022-08-22] MEDS ORDERED: metroNIDAZOLE 500 MG TAB PO SCH (13:00)
[2022-08-22] MEDS ORDERED: NEOMYCIN 500 MG TAB PO SCH (13:00)
[2022-08-22] MEDS: SODIUM CHLORIDE 0.9% 1,000 ML IV SCH (13:10)
[2022-08-22] MEDS: NEOMYCIN 500 MG TABLET PO SCH ×3 (14:04→22:59)
[2022-08-22] MEDS: metroNIDAZOLE 500 MG TABLET PO SCH ×3 (14:04→22:59)
[2022-08-22] MEDS ORDERED: TEMAZEPAM 15 MG CAP PO ONE (21:00)
[2022-08-22] MEDS: MIRTAZAPINE 15 MG TAB PO SCH (22:51)
[2022-08-22] MEDS: FAMOTIDINE 20 MG TAB PO SCH (22:58)
[2022-08-23] MEDS ORDERED: HEPARIN SODIUM,PORCINE/PF 5,000 UNIT/0.5 ML SYRINGE SQ PRN (05:00)
[2022-08-23] MEDS ORDERED: metroNIDAZOLE-NS PMX 500 MG in SALINE 1 100ML.BAG IVPB PRN (05:00)
[2022-08-23] MEDS ORDERED: ACETAMINOPHEN TAB 500 MG TAB PO PRN (07:00)
[2022-08-23] MEDS ORDERED: MELOXICAM 7.5 MG TAB PO PRN (07:00)
[2022-08-23] MEDS ORDERED: ALVIMOPAN 12 MG CAPSULE PO PRN (07:00)
[2022-08-23] MEDS: SODIUM CHLORIDE 0.9% 1,000 ML IV SCH ×3 (07:02→14:12)
[2022-08-23] MEDS: LACTATED RINGERS 1,000 ML IV SCH (07:02)
[2022-08-23] MEDS: NON FORMULARY DRUG (Mirabegron [Myrbetriq] 50 MG Tab.Er.24h) PO SCH (07:57)
[2022-08-23] MEDS: LEVOTHYROXINE 25 MCG TAB PO SCH (07:57)
[2022-08-23] MEDS: amLODIPine 10 MG TAB PO SCH (07:57)
[2022-08-23] MEDS: PANTOPRAZOLE 40 MG/10 ML VIAL IVP SCH ×2 (08:45→21:49)
[2022-08-23 10:50] LABS: Basophils % (A) 1 %; Eosinophils # (A) 0.1 k/uL (0-0.7); Eosinophils % (A) 2 %; HCT 35.4 % (34.0-46.0); HGB 11.6 gm/dL (11.4-16.0); Lymphocytes # (A) 1.4 k/uL (1.0-4.8); Lymphocytes % (A) 40 %; MCH 30.7 pg (25.0-35.0); MCHC 32.9 g/dL (31.0-37.0); MCV 93.4 fL (80.0-100.0); Monocytes # (A) 0.3 k/uL (0-1.0); Monocytes % (A) 8 %; Neutrophils # (A) 1.7 k/uL (1.3-7.7); Neutrophils % (A) 47 %; Platelet Count 267 k/uL (150-450); RBC 3.79 m/uL (3.80-5.40); RDW 12.7 % (11.5-15.5); WBC 3.6 k/uL (3.8-10.6)
[2022-08-23 11:08] LABS: ALT 24 U/L (4-34); AST 45 U/L (14-36); African American GFR (CKD) 69 (>60 ml/min/1.73 sqM); Albumin 3.8 g/dL (3.5-5.0); Albumin/Globulin Ratio 1.7; Alkaline Phosphatase 82 U/L (38-126); Anion Gap 9 mmol/L; Blood Urea Nitrogen 13 mg/dL (7-17); Calcium 9.1 mg/dL (8.4-10.2); Carbon Dioxide 28 mmol/L (22-30); Chloride 105 mmol/L (98-107); Globulin 2.3 g/dL; Glucose 117 mg/dL (74-99); Non-African American GFR(CKD) 60 (>60 ml/min/1.73 sqM); Potassium 3.4 mmol/L (3.5-5.1); Sodium 142 mmol/L (137-145); Total Bilirubin 0.4 mg/dL (0.2-1.3); Total Protein 6.1 g/dL (6.3-8.2)
[2022-08-23] MEDS ORDERED: MIDAZOLAM 2 MG/2 ML VIAL IVP ONE (13:11)
--- NOTE | 2022-08-23 13:24 | P.ANPRN ---
Procedure Note - Anesthesia - Nerve Block Performed Bilateral Erector Spinae Time Out Performed: Yes (13:10) Date of Procedure: 08/23/22 Procedure Start Time: :10 Procedure Stop Time: :19 Location of Patient: Endo Indication: Acute Post-Operative Pain, Requested by Surgeon (Dr Peraza) Sedation Type: Sedate with meaningful contact maintained Preparation: Sterile Prep Position: Prone Catheter: None Needle Types: Pajunk Needle Gauge: 21 Ultrasound used to visualize needle placement: Yes Ultrasound used to observe medication spread: Yes Injectate: 0.5% Ropivacaine (see comment for volume) (15cc + 10cc PF Normal saline each side) Blood Aspirated: No Pain Paresthesia on Injection Noted: No Resistance on Injection: Normal Image Stored and Saved: Yes Events: Uneventful and Well Tolerated
--- NOTE | 2022-08-23 13:51 | P.HPADDEND ---
H&P Addendum H&P Addendum Date: 08/23/22 Benefits and risks of robotic sigmoid colectomy reviewed. Labs moderately improved with early anemia identified. All questions described. Proceeding with a robotic sigmoid colectomy.
[2022-08-23] MEDS ORDERED: MIDAZOLAM 2 MG/2 ML VIAL ONE (14:08)
[2022-08-23] MEDS ORDERED: LIDOCAINE 2% INJ 20 MG/ML (2 ML VIAL) ONE (14:08)
[2022-08-23] MEDS ORDERED: SUCCINYLCHOLINE CHLORIDE 200 MG/10 ML VIAL IV ONE (14:08)
[2022-08-23] MEDS ORDERED: PHENYLEPHRINE-0.9% NACL SYG 1,000 MCG/10 ML SYRINGE ONE (14:08)
[2022-08-23] MEDS ORDERED: ROPIVACAINE 5 MG/ML 30 ML VIAL ONE (14:08)
[2022-08-23] MEDS ORDERED: ROCURONIUM 10 MG/ML (5 ML VIAL) IV ONE (14:08)
[2022-08-23] MEDS ORDERED: NEOSTIGMINE 1 MG/ML 10 ML VIAL ONE (14:08)
[2022-08-23] MEDS ORDERED: HYDROmorphone (PF) 1 MG/ML ONE (14:08)
[2022-08-23] MEDS ORDERED: GLYCOPYRROLATE 0.2 MG/ML 2 ML VIAL ONE (14:08)
[2022-08-23] MEDS ORDERED: PROPOFOL 10 MG/ML 20 ML VIAL IV ONE (14:08)
[2022-08-23] MEDS ORDERED: fentaNYL (PF) 50 MCG/ML 2 ML AMP ONE (14:08)
[2022-08-23] MEDS ORDERED: SODIUM CHLORIDE 0.9% (PF) 10 ML VIAL ONE (14:08)
[2022-08-23] MEDS ORDERED: LIDOCAINE 1%-EPI 1:100,000 20 ML VIAL SQ ONE (14:53)
[2022-08-23] MEDS ORDERED: LACTATED RINGERS 1,000 ML IV ONE (15:22)
[2022-08-23] MEDS ORDERED: ONDANSETRON 4 MG/2 ML VIAL IVP PRN (16:53)
[2022-08-23] MEDS ORDERED: BENZOCAINE/MENTHOL LOZENG 1 EACH LOZENGE MUCOUS MEM PRN (16:53)
[2022-08-23] MEDS ORDERED: NALOXONE 0.4 MG/ML 1 ML VIAL IV PRN (17:05)
[2022-08-23] MEDS ORDERED: diphenhydrAMINE 50 MG/ML 1 ML VIAL IVP PRN (17:05)
[2022-08-23] MEDS ORDERED: HYDROmorphone 1 MG/ML 1 ML SYRINGE IVP PRN (17:05)
[2022-08-23] MEDS ORDERED: fentaNYL PCA 500 MCG/50 ML BAG IV PRN (17:05)
--- NOTE | 2022-08-23 17:05 | P.OP ---
Date of Procedure: 08/23/22 Description of Procedure: SURGEON: SANJUANA SEWELL MD PREOPERATIVE DIAGNOSES: 1. Sigmoid diverticulitis with large bowel obstruction 2. Hypertensive heart disease 3. Chronic obstructive pulmonary disease 3. Hypothyroidism 4. Gastroesophageal reflux disease 5. Rheumatoid arthritis 6. History of hepatitis B 7. History of cerebrovascular accident 8. Chronic renal disease, stage III due to hypertensive heart disease 9. Generalized anxiety disorder 10. Depressive disorder POSTOPERATIVE DIAGNOSES: 1. Sigmoid diverticulitis with large bowel obstruction 2. Hypertensive heart disease 3. Chronic obstructive pulmonary disease 3. Hypothyroidism 4. Gastroesophageal reflux disease 5. Rheumatoid arthritis 6. History of hepatitis B 7. History of cerebrovascular accident 8. Chronic renal disease, stage III due to hypertensive heart disease 9. Generalized anxiety disorder 10. Depressive disorder OPERATION: 1. Robotic-assisted daVinci Xi sigmoid colectomy with low anterior resection using 25 mm Ethicon powered stapler 2. Intraoperative colonoscopy used for sigmoidoscopy Anesthesia: GETA, local, regional Estimated Blood Loss (ml): 5 Pathology: 1. Sigmoid colon 2. EEA donuts 3. Proximal colotomy Condition: stable Disposition: floor COMPLICATIONS: None. Operative Findings: 1. Redundant sigmoid colon with chronic diverticulitis 2. Anastomosis with EEA stapler 25 mm 3. No tension or torsion along the anastomosis 4. Doughnuts thick and both sides and viable 5. Moderately redundant sigmoid colon without tension at anastomosis 6. Negative leak test with viable anastomosis. INDICATIONS: The patient is a 77-year-old female who presents with change in bowel habits, sigmoid diverticulosis with tortuous colon and sigmoid colon stricture. She had prior colonoscopy however unsuccessful with computed tomography scan performed. Benefits and risks of surgical intervention was described in detail including infection, injury to the ureter, colostomy creation, possibility for additional surgery was discussed at length. Informed consent was obtained. All questions of the patient were answered. DESCRIPTION: Earlier the patient had undergone a bowel prep using the enhanced colon recovery program. The patient was transferred to the operating room and placed supine. After general induction, the abdomen was prepped and draped in standard sterile fashion. Ioban was placed along the abdomen to minimize any contamination of skin floor. A Parra catheter was placed. After a timeout protocol was performed, attention was then brought to the left upper quadrant whereby a 0 degree 5 mm laparoscopic trocar entry was performed. The abdominal cavity was entered and insufflated to 15 mmHg pressure, which was tolerated well. Diagnostic laparoscopy confirmed moderately redundant sigmoid colon. The small bowel was unremarkable. Next a robotic 12-mm trocar was placed along the right lateral abdominal wall 20 cm superior from the pelvis. Two 8 mm ports were placed along the upper abdomen. Ports were placed 10 cm apart from each other including 20 cm away from the target anatomy of the left pelvis. The 12-mm port was exchanged for an 8 mm robotic port at the left upper quadrant. The robot was docked along the left lateral abdomen. The patient was positioned in steep Trendelenburg position at 21-degrees. Using atraumatic graspers and vessel sealer, the robotic system was docked and primed as described. Instruments were interchanged by the pastrycook's assistant including hook cautery, needle lumber stacker driver, robotic stapler and vessel sealer. The robot stapler was prepared along the right lateral abdominal wall. The stapler 12-mm port was arranged along the right lateral abdominal wall. Next, attention was brought to identify the sigmoid colon. A stay suture using 3- 0 silk was placed along the anterior serosa of the redundant sigmoid colon. The sigmoid mesentery was mobilized using a vessel sealer whereby the descending colon was marked and tagged. Using multiple fires of the robot stapler 60 mm green load, the proximal sigmoid colon was divided. The mesentery of the sigmoid colon was mobilized towards the pelvic brim and sacral promontory using a vessel sealer. The sigmoid volvulus was reduced with viable colon. Next, the sigmoid colon was divided using the robotic stapler 60 mm black staple loads at the rectum . The rest of the sigmoid colon mesentery was mobilized using vessel sealer. Additionally, the sigmoid colon was mobilized onto the colon to minimize injury to the ureters. I went to the foot of the bed to confirm sizers and placement of 25-mm Ethicon powered stapler. I re-scrubbed into the case. The robotic arms were temporarily undocked. A 25-mm anvil was placed with a 3-0 silk sutured at the tip of the anvil assessment expert. Then the anvil was placed via the left upper quadrant 12 mm port. All robotic arms were re-docked. I went back to the console. The staple line was opened using cautery. The anvil was entered into the proximal descending colon. The colotomy was closed using 60 mm green load. Next, the sharp tip of the anvil assessment expert was brought through the staple line. The anvil assessment expert was removed from the abdomen using empty clip appliers. I went to the foot of the bed to place the powered Ethicon 2 mm stapler via the rectum. The anvil and stapler were mated for 1 minute. The doughnuts were intact on both sides and thick. An intraoperative leak test was performed as I inserted the colonoscope to the anastomosis. Endoscopic images were obtained. Irrigation was placed in the pelvis and no air leaks were identified. Irrigation fluid was aspirated from the pelvis until dry. I went back to the console. All sponges and needles were removed from the abdominal cavity. The robot was undocked. I re-scrubbed into the case. Via the left upper quadrant port, the sigmoid colon was removed using 15 mm Endo Catch bag. All sponges were removed from the abdominal cavity. The left upper quadrant incision was widened to 3-cm. No contamination had occurred throughout the case. The fascial defect was oversewn using 0 Vicryl and a Vazquez Law. Next all pneumoperitoneum was evacuated from the abdominal cavity. The 8-mm trocar sites were reapproximated using 4-0 Monocryl in an interrupted subcuticular fashion. Local anesthetic was infiltrated to all wounds for postop analgesia. All incisions were also cleansed with diluted hydrogen peroxide. An OPTIFOAM surgical dressing was placed over the colon extraction site. Liquid glue was applied to the rest of the skin incisions. The patient had tolerated the procedure well. The patient was extubated successfully. The patient was transferred to the postanesthesia care unit in stable condition. Console time: 69 minutes
[2022-08-23] MEDS ORDERED: HYDROmorphone 0.5 MG/0.5 ML SYRINGE IVP ONE ×2 (17:28→17:40)
[2022-08-23] MEDS: ACETAMINOPHEN IV (For NPO) 1,000 MG in EMPTY BAG 1 BAG IVPB SCH ×2 (18:00→18:15)
[2022-08-23] MEDS ORDERED: SODIUM CHLORIDE 0.9% 1,000 ML IV ONE ×2 (18:17)
[2022-08-23] MEDS ORDERED: ONDANSETRON 4 MG/2 ML VIAL IVP ONE (19:02)
[2022-08-23] MEDS: FAMOTIDINE 20 MG TAB PO SCH (21:19)
[2022-08-23] MEDS: MIRTAZAPINE 15 MG TAB PO SCH (21:19)
[2022-08-23] MEDS: ALVIMOPAN 12 MG CAPSULE PO SCH (21:19)
[2022-08-23] MEDS: metroNIDAZOLE-NS PMX 500 MG in SALINE 1 100ML.BAG IVPB SCH (21:49)
[2022-08-23] MEDS: HEPARIN SODIUM,PORCINE/PF 5,000 UNIT/0.5 ML SYRINGE SQ SCH (21:49)
[2022-08-24] MEDS: ACETAMINOPHEN IV (For NPO) 1,000 MG in EMPTY BAG 1 BAG IVPB SCH ×3 (00:51→12:39)
[2022-08-24] MEDS: LACTATED RINGERS 1,000 ML IV SCH (01:58)
[2022-08-24] MEDS: SODIUM CHLORIDE 0.9% 1,000 ML IV SCH ×2 (04:25→08:45)
[2022-08-24] MEDS: LEVOTHYROXINE 25 MCG TAB PO SCH (04:48)
[2022-08-24] MEDS: metroNIDAZOLE-NS PMX 500 MG in SALINE 1 100ML.BAG IVPB SCH ×2 (05:28→13:53)
[2022-08-24] MEDS: PANTOPRAZOLE 40 MG/10 ML VIAL IVP SCH (08:42)
[2022-08-24] MEDS: NON FORMULARY DRUG (Mirabegron [Myrbetriq] 50 MG Tab.Er.24h) PO SCH (08:43)
[2022-08-24] MEDS: amLODIPine 10 MG TAB PO SCH (08:43)
[2022-08-24] MEDS: HEPARIN SODIUM,PORCINE/PF 5,000 UNIT/0.5 ML SYRINGE SQ SCH (08:43)
[2022-08-24] MEDS: ALVIMOPAN 12 MG CAPSULE PO SCH (08:44)
[2022-08-24 09:06] LABS: Basophils # (A) 0.01 X 10*3/uL (0.00-0.10); Basophils % (A) 0.1 %; Eosinophils # (A) 0 X 10*3/uL (0.04-0.35); Eosinophils % (A) 0 %; HCT 31.1 % (37.2-46.3); Immature Grans, Automated 0.2 %; Lymphocytes # (A) 0.67 X 10*3/uL (0.90-5.00); Lymphocytes % (A) 7.5 %; MCH 31.1 pg (27.0-32.0); MCHC 32.2 g/dL (32.0-37.0); MCV 96.6 fL (80.0-97.0); Mean Platelet Volume 12.5 fL (9.5-12.2); Monocytes # (A) 0.59 X 10*3/uL (0.20-1.00); Monocytes % (A) 6.6 %; NRBC Per 100 WBC 0 /100 WBCS (0.0-0.0); Neutrophils # (A) 7.59 X 10*3/uL (1.80-7.70); Neutrophils % (A) 85.6 %; Platelet Count 236 X 10*3/uL (140-440); RBC 3.22 X 10*6/uL (4.10-5.20); RDW 13.9 % (11.5-14.5); WBC 8.88 X 10*3/uL (4.50-10.00)
[2022-08-24 09:58] LABS: African American GFR (CKD) 55.3 (60.0-200.0); Anion Gap 10.1 mmol/L (10.00-18.00); BUN/Creat Ratio 8.91 Ratio (12.00-20.00); Blood Urea Nitrogen 9.8 mg/dL (9.0-27.0); Calcium 8.6 mg/dL (8.7-10.3); Carbon Dioxide 23.9 mmol/L (20.0-27.5); Non-African American GFR(CKD) 47.7 (60.0-200.0); Potassium 3.9 mmol/L (3.5-5.5)
[2022-08-24 12:00] VITALS: BP 110/56; PULSE 71; RESP 16; TEMP 98.3
--- NOTE | 2022-08-24 14:34 | P.DS ---
Providers Date of admission: 08/23/22 15:29 Expected date of discharge: 08/24/22 Attending physician: Chanda Peraza Primary care physician: Parker Nguyen [facility] Course: POSTOPERATIVE DIAGNOSES: 1. Sigmoid diverticulitis with large bowel obstruction 2. Hypertensive heart disease 3. Chronic obstructive pulmonary disease 3. Hypothyroidism 4. Gastroesophageal reflux disease 5. Rheumatoid arthritis 6. History of hepatitis B 7. History of cerebrovascular accident 8. Chronic renal disease, stage III due to hypertensive heart disease 9. Generalized anxiety disorder 10. Depressive disorder COURSE: The patient is a 77-year-old female who presents with change in bowel habits, sigmoid diverticulosis with tortuous colon and sigmoid colon stricture. She had prior colonoscopy however unsuccessful with computed tomography scan performed. She had low anterior resection, uncomplicated. Postoperatively, pain was well controlled. She was passing flatus and had a small bowel movement. She was tolerating diet. Images from her surgery was reviewed with her and her son at bedside. Discharge diet including discharge activity also reviewed. Follow-up outpatient in 3 days described. Procedures: OPERATION: 1. Robotic-assisted daVinci Xi sigmoid colectomy with low anterior resection using 25 mm Ethicon powered stapler 2. Intraoperative colonoscopy used for sigmoidoscopy Anesthesia: GETA, local, regional Estimated Blood Loss (ml): 5 Pathology: 1. Sigmoid colon 2. EEA donuts 3. Proximal colotomy Condition: stable Disposition: floor COMPLICATIONS: None. Operative Findings: 1. Redundant sigmoid colon with chronic diverticulitis 2. Anastomosis with EEA stapler 25 mm 3. No tension or torsion along the anastomosis 4. Doughnuts thick and both sides and viable 5. Moderately redundant sigmoid colon without tension at anastomosis 6. Negative leak test with viable anastomosis. Patient Condition at Discharge: Good Plan - Discharge Summary Discharge Rx Participant: Yes New Discharge Prescriptions: New Acetaminophen Tab [Tylenol Tab] 1,000 mg PO Q6HR PRN #30 tablet PRN Reason: Pain Simethicone [Gas-X] 125 mg PO AC-TID PRN #20 capsule PRN Reason: Pain Continue Cholecalciferol [Vitamin D3 (25 Mcg = 1000 Iu)] 1,000 unit PO DAILY Multivitamin/Iron/Folic Acid [Centrum Adults Tablet] 1 each PO DAILY Aspirin [Adult Low Dose Aspirin EC] 81 mg PO DAILY Levothyroxine Sodium [Synthroid] 25 mcg PO DAILY Atorvastatin [Lipitor] 20 mg PO HS Mirabegron [Myrbetriq] 50 mg PO DAILY amLODIPine [Norvasc] 10 mg PO DAILY Famotidine [Pepcid] 40 mg PO HS Mirtazapine [Remeron] 30 mg PO HS Discharge Medication List Aspirin [Adult Low Dose Aspirin EC] 81 mg PO DAILY 10/01/18 [History] Atorvastatin [Lipitor] 20 mg PO HS 10/01/18 [History] Cholecalciferol [Vitamin D3 (25 Mcg = 1000 Iu)] 1,000 unit PO DAILY 10/01/18 [History] Levothyroxine Sodium [Synthroid] 25 mcg PO DAILY 10/01/18 [History] Multivitamin/Iron/Folic Acid [Centrum Adults Tablet] 1 each PO DAILY 10/01/18 [History] Mirabegron [Myrbetriq] 50 mg PO DAILY 02/01/20 [History] Famotidine [Pepcid] 40 mg PO HS 08/21/22 [History] Mirtazapine [Remeron] 30 mg PO HS 08/21/22 [History] amLODIPine [Norvasc] 10 mg PO DAILY 08/21/22 [History] Acetaminophen Tab [Tylenol Tab] 1,000 mg PO Q6HR PRN #30 tablet 08/24/22 [Rx] Simethicone [Gas-X] 125 mg PO AC-TID PRN #20 capsule 08/24/22 [Rx] Follow up Appointment(s)/Referral(s): Chanda Peraza MD [STAFF PHYSICIAN] - 08/27/22 (TELEHEALTH) Patient Instructions/Handouts: *Surgery [facility] - Managing Your Pain After Surgery Without Opioids, Low Fiber Diet (ED), Diverticulitis Diet (GEN), Colectomy Diet (DC), Deep Vein Thrombosis Prevention (ED) Activity/Diet/Wound Care/Special Instructions: Wear abdominal binder for comfort. No lifting over 4 pounds in 4 weeks Sep 22March shower. No bath tub soaks for two weeks until Sep 06 Avoid steak, tough meats and seeds such as raspberry seeds. See diverticulitis, low fiber, colectomy diet Use Tylenol scheduled for the next 24-48 hours for best pain relief. Use ice along incisions for today to prevent swelling. Discharge Disposition: HOME SELF-CARE
== END 2022-08-24 17:15 | disposition home or self-care (01) | DRG 329 ==
LOC: ORWHC2ENDO 10:25 → 5NMEDONC 12:35 → ORWHC2ENDO 12:47 → 5NMEDONC 08-23 15:29 → ORWHC2ENDO 08-23 15:29
PROVIDERS: ADMIT Surgery Plastic and Reconstructive Surgery; ATTEND Surgery Plastic and Reconstructive Surgery
PROC: 0DJD8ZZ Inspection of Lower Intestinal Tract, Via Natural or Artificial Opening Endoscopic (ICD-10-PCS; 2022-08-23)
PROC: 8E0W0CZ Robotic Assisted Procedure of Trunk Region, Open Approach (ICD-10-PCS; 2022-08-23)
PROC: 0DTN0ZZ Resection of Sigmoid Colon, Open Approach (ICD-10-PCS; principal; 2022-08-23 13:30)
DX: K57.32 Diverticulitis of large intestine without perforation or abscess without bleeding (principal); K56.2 Volvulus; B19.10 Unspecified viral hepatitis B without hepatic coma; E03.9 Hypothyroidism, unspecified; N18.30 Chronic kidney disease, stage 3 unspecified; I12.9 Hypertensive chronic kidney disease with stage 1 through stage 4 chronic kidney disease, or unspecified chronic kidney disease; E78.5 Hyperlipidemia, unspecified; F32.A Depression, unspecified; F41.1 Generalized anxiety disorder; J44.9 Chronic obstructive pulmonary disease, unspecified; K21.9 Gastro-esophageal reflux disease without esophagitis; K64.8 Other hemorrhoids; M06.9 Rheumatoid arthritis, unspecified; Z79.82 Long term (current) use of aspirin; Z79.890 Hormone replacement therapy; Z79.899 Other long term (current) drug therapy; Z86.73 Personal history of transient ischemic attack (TIA), and cerebral infarction without residual deficits; Z87.19 Personal history of other diseases of the digestive system; Z98.42 Cataract extraction status, left eye; Z98.41 Cataract extraction status, right eye
CPT/HCPCS: 45378; 64999; 80048; 80053; 85025; 86850; 86900; 86901

== ENCOUNTER → 2023-07-03 | Outpatient (CLI) | payer MEDICARE ==
--- NOTE | 2023-07-03 16:09 | US ---
EXAMINATION TYPE: US kidneys/renal and bladder DATE OF EXAM: 07/03/2023 COMPARISON: CT abdomen and pelvis 04/17/2022 CLINICAL INDICATION: Female, 78 years old with history of N18.32 CKD; CKD EXAM MEASUREMENTS: Right Kidney: 8.4 x 4.0 x 3.4 cm Left Kidney: 9.3 x 4.3 x 3.2 cm Pre Void Volume: 250 ml Post Void Residual Volume: 32.70 mL Incidental finding anechoic area in right liver measuring 4.2 x 3.7 x 3.7 cm. Right Kidney: No hydronephrosis or masses seen Left Kidney: No hydronephrosis or masses seen Bladder: wnl Bilateral Jets seen: Yes Normal Post Void Residual: Yes There is no evidence for hydronephrosis at this point in time. There is thinning of both kidneys jossy ices with increased echogenicity. Corticomedullary differentiation is maintained. No nephrolithiasis is seen. No masses are identified. The urinary bladder is anechoic. Bilateral ureteral jets are se en. Right hepatic lobe simple 4.2 cm cyst. IMPRESSION: 1. No hydronephrosis or nephrolithiasis. 2. Findings suggestive of chronic medical renal disease. 3. Hepatic cyst.
== END | disposition home or self-care (01) ==
LOC: RADUSWWP 15:13
PROVIDERS: ATTEND Internal Medicine Nephrology
DX: K76.89 Other specified diseases of liver (principal); N18.32 Chronic kidney disease, stage 3b
CPT/HCPCS: 76770

== ENCOUNTER 2023-09-04 08:34 | Day surgery (SDC) | payer MEDICARE ==
[2023-08-28 14:00] VITALS: BMI 22.3
[~2023-09-04 08:34] MED LIST changes: -Antibiotics per Pharmacy 1 EACH MISC MISCELLANE PRN; +LACTATED RINGERS 1,000 ML IV SCH
[2023-09-04] MEDS ORDERED: LIDOCAINE 1% INJ 10MG/ML (20 ML MDV) ONE (09:12)
[2023-09-04] MEDS ORDERED: PROPOFOL 10 MG/ML 20 ML VIAL IV ONE (09:12)
[2023-09-04 09:16] VITALS: TEMP 96.3
[2023-09-04 10:09] VITALS: BP 153/99; PULSE 64; RESP 14
--- NOTE | 2023-09-04 10:13 | P.GSHP ---
History of Present Illness H&P Date: 09/04/23 CHIEF COMPLAINT: Esophageal stricture HISTORY OF PRESENT ILLNESS: The patient is a 78-year-old female who presents reports dysphagia. Upper endoscopy was offered for further evaluation and management. PAST MEDICAL HISTORY: Please see list. PAST SURGICAL HISTORY: Please see list. MEDICATIONS: Please see list. ALLERGIES: Please see list. SOCIAL HISTORY: No illicit drug use FAMILY HISTORY: No reports of Crohn disease or ulcerative colitis. REVIEW OF ORGAN SYSTEMS: CONSTITUTIONAL: No reports of fevers or chills. GI: Denies any blood in stools or constipation. PHYSICAL EXAM: VITAL SIGNS: Stable GENERAL: Well-developed and pleasant in no acute distress. HEENT: No scleral icterus. Extraocular movements grossly intact. Moist buccal mucosa. NECK: Supple without lymphadenopathy. CHEST: Unlabored respirations. Equal bilateral excursions. CARDIOVASCULAR: Regular rate and rhythm. Distal 2+ pulses. ABDOMEN: Soft, nondistended. MUSCULOSKELETAL: No clubbing, cyanosis, or edema. ASSESSMENT: 1. Esophageal stricture PLAN: 1. Recommend proceeding with an upper endoscopy with rigid dilators. Past Medical History Past Medical History: CVA/TIA, GERD/Reflux, Hyperlipidemia, Hypertension, Liver Disease, Osteoarthritis (OA), Renal Disease, Skin Disorder, Thyroid Disorder Additional Past Medical History / Comment(s): hx hepatitis b, hx colon polyps, hx TIA- no residual effects, peptic ulcer, hiatal hernia, diarrhea, diverticulitis, diverticulosis, , skin scaling and itching of scalp- dermatitis, urinary leakage, kidney disease -"middle" range. Dr Flores is watching the numbers. season allergies History of Any Multi-Drug Resistant Organisms: None Reported Past Surgical History: Bowel Resection Additional Past Surgical History / Comment(s): oral sugery, colonoscopy, kelin cataracts,bowel resection Past Anesthesia/Blood Transfusion Reactions: No Reported Reaction Additional Past Anesthesia/Blood Transfusion Reaction / Comment(s): pt reports hepatitis b from blood transfusion 1967 Smoking Status: Never smoker - Past Family History Father Family Medical History: Cancer Additional Family Medical History / Comment(s): stomach cancer Medications and Allergies Home Medications Medication Instructions Recorded Confirmed Type Aspirin [Adult Low Dose Aspirin EC] 81 mg PO DAILY 10/01/18 08/28/23 History Atorvastatin [Lipitor] 20 mg PO HS 10/01/18 08/28/23 History Cholecalciferol [Vitamin D3 (25 1,000 unit PO DAILY 10/01/18 08/28/23 History Mcg = 1000 Iu)] Levothyroxine Sodium [Synthroid] 25 mcg PO DAILY 10/01/18 08/28/23 History Mirabegron [Myrbetriq] 50 mg PO DAILY 02/01/20 08/28/23 History Famotidine [Pepcid] 40 mg PO HS 08/21/22 08/28/23 History amLODIPine [Norvasc] 10 mg PO DAILY 08/21/22 08/28/23 History Acetaminophen Tab [Tylenol] 1,000 mg PO Q6HR PRN #30 tablet 08/24/22 08/28/23 Rx Losartan [Cozaar] 25 mg PO HS 06/03/23 08/28/23 History Lutein 40 mg PO DAILY 06/03/23 08/28/23 History Sertraline [Zoloft] 50 mg PO HS 06/03/23 08/28/23 History Unk Vitamin C 1 tab PO DAILY 06/03/23 08/28/23 History diphenhydrAMINE [Benadryl] 25 mg PO TID PRN 06/03/23 08/28/23 History traZODone HCL [Desyrel] 50 mg PO HS PRN 06/03/23 08/28/23 History Allergies Allergy/AdvReac Type Severity Reaction Status Date / Time No Known Allergies Allergy Verified 09/04/23 08:51 Surgical - Exam Vital Signs Temp Pulse Resp BP Pulse Ox 96.3 F L 79 16 169/77 97 09/04/23 08:57 09/04/23 08:57 09/04/23 08:57 09/04/23 08:57 09/04/23 08:57
--- NOTE | 2023-09-04 10:15 | P.PCN ---
Date of Procedure: 09/04/23 Description of Procedure: PREOPERATIVE DIAGNOSIS: Dysphagia. Gastroesophageal reflux disease Esophageal stricture POSTOPERATIVE DIAGNOSIS: Dysphagia. Esophageal stricture Gastritis with bleeding Gastroesophageal reflux disease OPERATION: Esophagogastroduodenoscopy with rigid dilator over the guidewire 54 Fr. SURGEON: Chanda Peraza MD ANESTHESIA: MAC. INDICATIONS: The patient is a 78-year-old male who presents with a history of dysphagia. Benefits and risks of the procedure were described. Informed consent was obtained. DESCRIPTION: The patient was brought into the endoscopy suite and laid in the left lateral decubitus position. After a timeout was confirmed, the procedure was initiated. An Olympus gastroscope was passed and the stomach was entered. Mild gastritis with bleeding was identified. The scope was advanced to the duodenum which was unremarkable. Retroflexion the scope confirmed a Hill grade 2 lower esophageal valve. Next using an Greek rigid dilator, a guidewire was placed through the pediatric gastroscope. Next the scope was withdrawn. A 54-Ugandan rigid Sachi rican dilator was passed carefully along the posterior oropharynx to 50 cm and left in place for 2-3 minutes stretch. The dilator was withdrawn including the guidewire. The scope was reentered along the posterior oropharynx with no findings of full-thickness tear of the upper esophageal sphincter. No full-thickness injury was encountered. The GI tract was desufflated. The patient tolerated the procedure well. FINDINGS: Squamocolumnar junction at 37 cm. Upper esophageal stricture without ulceration Greek rigid dilator 54-Ugandan completed. Diffuse gastritis with bleeding Hill grade 2 lower esophageal valve. LA grade A esophagitis. RECOMMENDATIONS: May need repeat upper endoscopy as needed Plan - Discharge Summary Discharge Rx Participant: No New Discharge Prescriptions: Continue Cholecalciferol [Vitamin D3 (25 Mcg = 1000 Iu)] 1,000 unit PO DAILY Aspirin [Adult Low Dose Aspirin EC] 81 mg PO DAILY Levothyroxine Sodium [Synthroid] 25 mcg PO DAILY Atorvastatin [Lipitor] 20 mg PO HS Mirabegron [Myrbetriq] 50 mg PO DAILY amLODIPine [Norvasc] 10 mg PO DAILY Famotidine [Pepcid] 40 mg PO HS Acetaminophen Tab [Tylenol] 1,000 mg PO Q6HR PRN #30 tablet PRN Reason: Pain diphenhydrAMINE [Benadryl] 25 mg PO TID PRN PRN Reason: Allergy Symptoms Lutein 40 mg PO DAILY Sertraline [Zoloft] 50 mg PO HS Unk Vitamin C 1 tab PO DAILY traZODone HCL [Desyrel] 50 mg PO HS PRN PRN Reason: Insomnia Losartan [Cozaar] 25 mg PO HS Discharge Medication List Aspirin [Adult Low Dose Aspirin EC] 81 mg PO DAILY 10/01/18 [History] Atorvastatin [Lipitor] 20 mg PO HS 10/01/18 [History] Cholecalciferol [Vitamin D3 (25 Mcg = 1000 Iu)] 1,000 unit PO DAILY 10/01/18 [History] Levothyroxine Sodium [Synthroid] 25 mcg PO DAILY 10/01/18 [History] Mirabegron [Myrbetriq] 50 mg PO DAILY 02/01/20 [History] Famotidine [Pepcid] 40 mg PO HS 08/21/22 [History] amLODIPine [Norvasc] 10 mg PO DAILY 08/21/22 [History] Acetaminophen Tab [Tylenol] 1,000 mg PO Q6HR PRN #30 tablet 08/24/22 [Rx] Losartan [Cozaar] 25 mg PO HS 06/03/23 [History] Lutein 40 mg PO DAILY 06/03/23 [History] Sertraline [Zoloft] 50 mg PO HS 06/03/23 [History] Unk Vitamin C 1 tab PO DAILY 06/03/23 [History] diphenhydrAMINE [Benadryl] 25 mg PO TID PRN 06/03/23 [History] traZODone HCL [Desyrel] 50 mg PO HS PRN 06/03/23 [History] Follow up Appointment(s)/Referral(s): Chanda Peraza MD [STAFF PHYSICIAN] - 09/16/23 9:00 am Patient Instructions/Handouts: *Surgery [facility] - (Anesthesia) Discharge Instructions Outpatient Surgery, Hiatal Hernia (DC), Gastritis (DC), GERD (Gastroesophageal Reflux Disease) (DC), Esophageal Stricture (DC), Esophageal Dilation (DC) Discharge Disposition: HOME SELF-CARE
== END 2023-09-04 10:15 | disposition home or self-care (01) ==
LOC: ORWHC2ENDO 08:34
PROVIDERS: ATTEND Surgery Plastic and Reconstructive Surgery
DX: K22.2 Esophageal obstruction (principal); K29.71 Gastritis, unspecified, with bleeding; E78.5 Hyperlipidemia, unspecified; I10 Essential (primary) hypertension; E07.9 Disorder of thyroid, unspecified; K21.9 Gastro-esophageal reflux disease without esophagitis; M19.90 Unspecified osteoarthritis, unspecified site; Z79.82 Long term (current) use of aspirin; Z79.890 Hormone replacement therapy; Z86.73 Personal history of transient ischemic attack (TIA), and cerebral infarction without residual deficits; Z79.899 Other long term (current) drug therapy
CPT/HCPCS: 43248; J2001; J2704; 43249

== ENCOUNTER 2024-09-03 12:14 | Observation (INO) | payer MEDICARE ==
[2024-09-03 12:24] VITALS: TEMP 97.5
--- NOTE | 2024-09-03 12:35 | ED ---
General Adult HPI - General Chief complaint: Chest Pain Stated complaint: CHEST PAIN Time Seen by Provider: 09/03/24 12:23 Source: patient, family, RN notes reviewed Mode of arrival: wheelchair Limitations: no limitations - History of Present Illness Initial comments: Patient is an 79-year-old female presenting to the emergency department with concerns with chest discomfort. Onset of symptoms was a couple hours ago. Patient felt pressure in her chest and did have some associated dyspnea. There was some mild nausea. No diaphoresis. Patient did have similar symptoms around 3 weeks ago and felt near syncopal at that time. Otherwise no history. Currently patient is symptom-free. No leg pain or leg swelling. - Related Data Home Medications Medication Instructions Recorded Confirmed Aspirin [Adult Low Dose Aspirin EC] 81 mg PO DAILY 10/01/18 08/28/23 Atorvastatin [Lipitor] 20 mg PO HS 10/01/18 08/28/23 Cholecalciferol [Vitamin D3 (25 1,000 unit PO DAILY 10/01/18 08/28/23 Mcg = 1000 Iu)] Levothyroxine Sodium [Synthroid] 25 mcg PO DAILY 10/01/18 08/28/23 Mirabegron [Myrbetriq] 50 mg PO DAILY 02/01/20 08/28/23 Famotidine [Pepcid] 40 mg PO HS 08/21/22 08/28/23 amLODIPine [Norvasc] 10 mg PO DAILY 08/21/22 08/28/23 Losartan [Cozaar] 25 mg PO HS 06/03/23 08/28/23 Lutein 40 mg PO DAILY 06/03/23 08/28/23 Sertraline [Zoloft] 50 mg PO HS 06/03/23 08/28/23 Unk Vitamin C 1 tab PO DAILY 06/03/23 08/28/23 diphenhydrAMINE [Benadryl] 25 mg PO TID PRN 06/03/23 08/28/23 traZODone HCL [Desyrel] 50 mg PO HS PRN 06/03/23 08/28/23 Previous Rx's Medication Instructions Recorded Acetaminophen Tab [Tylenol] 1,000 mg PO Q6HR PRN #30 tablet 08/24/22 Allergies Allergy/AdvReac Type Severity Reaction Status Date / Time No Known Allergies Allergy Verified 09/03/24 12:21 Review of Systems ROS Statement: Those systems with pertinent positive or pertinent negative responses have been documented in the HPI. ROS Other: All systems not noted in ROS Statement are negative. Constitutional: Denies: fever Eyes: Denies: eye pain ENT: Denies: ear pain Respiratory: Reports: dyspnea Cardiovascular: Reports: as per HPI, chest pain Gastrointestinal: Denies: abdominal pain Genitourinary: Denies: dysuria Past Medical History Past Medical History: CVA/TIA, GERD/Reflux, Hyperlipidemia, Hypertension, Liver Disease, Osteoarthritis (OA), Renal Disease, Skin Disorder, Syncope, Thyroid Disorder Additional Past Medical History / Comment(s): hx hepatitis b, hx colon polyps, hx TIA- no residual effects, peptic ulcer, hiatal hernia, diarrhea, diverticulitis, diverticulosis, , skin scaling and itching of scalp- dermatitis, urinary leakage, kidney disease -"middle" range. Dr Flores is watching the numbers. season allergies History of Any Multi-Drug Resistant Organisms: None Reported Past Surgical History: No Surgical Hx Reported Additional Past Surgical History / Comment(s): oral sugery, colonoscopy, kelin cataracts Past Anesthesia/Blood Transfusion Reactions: No Reported Reaction Additional Past Anesthesia/Blood Transfusion Reaction / Comment(s): pt reports hepatitis b from blood transfusion 1967 Past Psychological History: Anxiety, Depression Smoking Status: Never smoker - Past Family History Father Family Medical History: Cancer Additional Family Medical History / Comment(s): stomach cancer General Exam Limitations: no limitations General appearance: alert, in no apparent distress Head exam: Present: normocephalic Eye exam: Present: normal appearance Neck exam: Present: normal inspection Respiratory exam: Present: normal lung sounds bilaterally. Absent: chest wall tenderness Cardiovascular Exam: Present: regular rate, normal rhythm, normal heart sounds Expanded Peripheral pulses: 2+: Radial (R), Radial (L), Dorsalis Pedis (R), Dorsalis Pedis (L) GI/Abdominal exam: Present: soft. Absent: tenderness Extremities exam: Present: normal inspection. Absent: pedal edema, calf tenderness Neurological exam: Present: alert Psychiatric exam: Present: normal affect, normal mood Skin exam: Present: normal color Course Vital Signs 09/03/24 12:21 Temperature 97.5 F L Pulse Rate 79 Respiratory 18 Rate Blood Pressure 194/91 O2 Sat by Pulse 98 Oximetry EKG Findings - EKG Results: EKG: interpreted by ERMD (Left axis. LVH criteria), sinus rhythm, normal ST/T Medical Decision Making - Medical Decision Making Was pt. sent in by a medical professional or institution (, MISTY, TELEPHONE ANSWERING SERVICE OPERATOR, urgent care, hospital, or alf...) When possible be specific @ -No Did you speak to anyone other than the patient for history (EMS, parent, family, police, friend...)? What history was obtained from this source @ -Family is present and helps provide history including onset of symptoms Did you review nursing and triage notes (agree or disagree)? Why? @ -I reviewed and agree with nursing and triage notes Were old charts reviewed (outside hosp., previous admission, EMS record, old EKG, old radiological studies, urgent care reports/EKG's, alf records)? Report findings @ -Chest x-ray shows no acute process Differential Diagnosis (chest pain, altered mental status, abdominal pain women, abdominal pain men, vaginal bleeding, weakness, fever, dyspnea, syncope, headache, dizziness, GI bleed, back pain, seizure, CVA, palpatations, mental health, musculoskeletal)? @ -Differential Chest Pain: Stable Angina, Unstable Angina, STEMI, NSTEMI Aortic Dissection, Pneumothorax, Musculoskeletal, Esophageal Spasm GERD, Cholecystitis, Pancreatitis, Zoster, this is not meant to be an all-inclusive list. EKG interpreted by me (3pts min.). @ -As above X-rays interpreted by me (1pt min.). @ -Chest x-ray shows no acute process CT interpreted by me (1pt min.). @ -None done U/S interpreted by me (1pt. min.). @ -None done What testing was considered but not performed or refused? (CT, X-rays, U/S, labs)? Why? @ -None What meds were considered but not given or refused? Why? @ -None Did you discuss the management of the patient with other professionals (professionals i.e. , MISTY, TELEPHONE ANSWERING SERVICE OPERATOR, lab, RT, psych nurse, social and human services assistant, pearl peller, teacher, nuclear security officer, case technician)? Give summary @ -Case discussed with Dr. Abdi who will admit covering Dr. Nguyen Was smoking cessation discussed for >3mins.? @ -No Was critical care preformed (if so, how long)? @ -No Were there social determinants of health that impacted care today? How? (Homelessness, low income, unemployed, alcoholism, drug addiction, transportation, low edu. Level, literacy, decrease access to med. care, skilled nursing, rehab)? @ -No Was there de-escalation of care discussed even if they declined (Discuss DNR or withdrawal of care, Hospice)? DNR status @ -No What co-morbidities impacted this encounter? (DM, HTN, Smoking, COPD, CAD, Cancer, CVA, ARF, Chemo, Hep., AIDS, mental health diagnosis, sleep apnea, morbid obesity)? @ -None Was patient admitted / discharged? Hospital course, mention meds given and route, prescriptions, significant lab abnormalities, going to OR and other pertinent info. @ -Patient presents with chest discomfort, initial evaluation unremarkable. Patient will be held for repeat testing and cardiac consult as well as cardiac monitoring. Admission orders written. Consult placed Undiagnosed new problem with uncertain prognosis? @ -No Drug Therapy requiring intensive monitoring for toxicity (Heparin, Nitro, Insulin, Cardizem)? @ -No Were any procedures done? @ -No Diagnosis/symptom? @ -Chest pain Acute, or Chronic, or Acute on Chronic? @ -Acute Uncomplicated (without systemic symptoms) or Complicated (systemic symptoms)? @ -Default Side effects of treatment? @ -No Exacerbation, Progression, or Severe Exacerbation? @ -No Poses a threat to life or bodily function? How? (Chest pain, USA, CT, pneumonia, PE, COPD, DKA, ARF, appy, cholecystitis, CVA, Diverticulitis, Homicidal, Suicidal, threat to staff... and all critical care pts) @ -Threat to cardiac function - Lab Data Result diagrams: 09/03/24 12:40 09/03/24 12:40 Lab Results 09/03/24 09/03/24 09/03/24 Range/Units 12:40 12:40 12:40 WBC 5.1 (3.8-10.6) k/uL RBC 4.36 (3.80-5.40) m/uL Hgb 13.8 (11.4-16.0) gm/dL Hct 40.9 (34.0-46.0) % MCV 93.9 (80.0-100.0) fL MCH 31.7 (25.0-35.0) pg MCHC 33.8 (31.0-37.0) g/dL RDW 12.5 (11.5-15.5) % Plt Count 280 (150-450) k/uL MPV 8.3 Neutrophils % 60 % Lymphocytes % 28 % Monocytes % 6 % Eosinophils % 2 % Basophils % 1 % Neutrophils # 3.0 (1.3-7.7) k/uL Lymphocytes # 1.4 (1.0-4.8) k/uL Monocytes # 0.3 (0-1.0) k/uL Eosinophils # 0.1 (0-0.7) k/uL Basophils # 0.0 (0-0.2) k/uL PT 9.9 L (10.0-12.5) sec INR 0.9 (<1.2) APTT 25.2 (22.0-30.0) sec D-Dimer 0.30 (<0.60) mg/L FEU Sodium 140 (137-145) mmol/L Potassium 4.2 (3.5-5.1) mmol/L Chloride 107 (98-107) mmol/L Carbon Dioxide 25 (22-30) mmol/L Anion Gap 8 mmol/L BUN 19 H (7-17) mg/dL Creatinine 1.19 H (0.52-1.04) mg/dL Est GFR (CKD-EPI)AfAm 49 (>60 ml/min/1.73 sqM) Est GFR (CKD-EPI)NonAf 43 (>60 ml/min/1.73 sqM) Glucose 87 (74-99) mg/dL Calcium 10.5 H (8.4-10.2) mg/dL Magnesium 2.1 (1.6-2.3) mg/dL Total Bilirubin 0.6 (0.2-1.3) mg/dL AST 34 (14-36) U/L ALT 17 (4-34) U/L Alkaline Phosphatase 107 (38-126) U/L Troponin I (0.000-0.034) ng/mL Total Protein 8.3 H (6.3-8.2) g/dL Albumin 5.1 H (3.5-5.0) g/dL 09/03/24 Range/Units 12:40 WBC (3.8-10.6) k/uL RBC (3.80-5.40) m/uL Hgb (11.4-16.0) gm/dL Hct (34.0-46.0) % MCV (80.0-100.0) fL MCH (25.0-35.0) pg MCHC (31.0-37.0) g/dL RDW (11.5-15.5) % Plt Count (150-450) k/uL MPV Neutrophils % % Lymphocytes % % Monocytes % % Eosinophils % % Basophils % % Neutrophils # (1.3-7.7) k/uL Lymphocytes # (1.0-4.8) k/uL Monocytes # (0-1.0) k/uL Eosinophils # (0-0.7) k/uL Basophils # (0-0.2) k/uL PT (10.0-12.5) sec INR (<1.2) APTT (22.0-30.0) sec D-Dimer (<0.60) mg/L FEU Sodium (137-145) mmol/L Potassium (3.5-5.1) mmol/L Chloride (98-107) mmol/L Carbon Dioxide (22-30) mmol/L Anion Gap mmol/L BUN (7-17) mg/dL Creatinine (0.52-1.04) mg/dL Est GFR (CKD-EPI)AfAm (>60 ml/min/1.73 sqM) Est GFR (CKD-EPI)NonAf (>60 ml/min/1.73 sqM) Glucose (74-99) mg/dL Calcium (8.4-10.2) mg/dL Magnesium (1.6-2.3) mg/dL Total Bilirubin (0.2-1.3) mg/dL AST (14-36) U/L ALT (4-34) U/L Alkaline Phosphatase (38-126) U/L Troponin I <0.012 (0.000-0.034) ng/mL Total Protein (6.3-8.2) g/dL Albumin (3.5-5.0) g/dL Disposition Clinical Impression: Chest pain Disposition: ADMITTED IP TO THIS [facility] Is patient prescribed a controlled substance at d/c from ED?: No Referrals: Parker Nguyen DO [Primary Care Provider] - 1-2 days Time of Disposition: 14:27
[2024-09-03] MEDS: NITROGLYCERIN OINT 1 INCH/GM PACKET TOPICAL STA (12:53)
[2024-09-03] MEDS: ASPIRIN 81 MG PO STA (12:53)
[2024-09-03 13:01] LABS: Basophils % (A) 1 %; Eosinophils # (A) 0.1 k/uL (0-0.7); Eosinophils % (A) 2 %; HCT 40.9 % (34.0-46.0); HGB 13.8 gm/dL (11.4-16.0); Lymphocytes # (A) 1.4 k/uL (1.0-4.8); Lymphocytes % (A) 28 %; MCH 31.7 pg (25.0-35.0); MCHC 33.8 g/dL (31.0-37.0); MCV 93.9 fL (80.0-100.0); Mean Platelet Volume 8.3; Monocytes # (A) 0.3 k/uL (0-1.0); Monocytes % (A) 6 %; Neutrophils % (A) 60 %; Platelet Count 280 k/uL (150-450); RBC 4.36 m/uL (3.80-5.40); RDW 12.5 % (11.5-15.5); WBC 5.1 k/uL (3.8-10.6)
[2024-09-03 13:09] LABS: ALT 17 U/L (4-34); AST 34 U/L (14-36); African American GFR (CKD) 49 (>60 ml/min/1.73 sqM); Albumin 5.1 g/dL (3.5-5.0); Alkaline Phosphatase 107 U/L (38-126); Anion Gap 8 mmol/L; Blood Urea Nitrogen 19 mg/dL (7-17); Calcium 10.5 mg/dL (8.4-10.2); Carbon Dioxide 25 mmol/L (22-30); Chloride 107 mmol/L (98-107); Glucose 87 mg/dL (74-99); Magnesium 2.1 mg/dL (1.6-2.3); Non-African American GFR(CKD) 43 (>60 ml/min/1.73 sqM); Potassium 4.2 mmol/L (3.5-5.1); Sodium 140 mmol/L (137-145); Total Bilirubin 0.6 mg/dL (0.2-1.3); Total Protein 8.3 g/dL (6.3-8.2)
[2024-09-03 13:19] LABS: INR 0.9 (<1.2); Partial Thromboplastin Time 25.2 sec (22.0-30.0); Prothrombin Time 9.9 sec (10.0-12.5)
--- NOTE | 2024-09-03 13:34 | XR ---
EXAMINATION TYPE: XR chest 2V DATE OF EXAM: 09/03/2024 COMPARISON: 10/26/2021 HISTORY: 79-year-old female with chest pain, intermittent chest pressure with shortness of breath TECHNIQUE: PA and lateral views FINDINGS: Heart normal size. Aorta and pulmonary vasculature within normal limits. Some strandy atelectasis of the right lower lung. No consolidation or pleural effusion. IMPRESSION: No acute cardiopulmonary process. [facility], , 09/03/2024 1:32 PM
[2024-09-03] MEDS ORDERED: NITROGLYCERIN SL TABS 0.4 MG TAB SUBLINGUAL PRN (14:27)
[2024-09-03 15:12] VITALS: BP 147/93; PULSE 82; RESP 16
[2024-09-03] MEDS ORDERED: NITROGLYCERIN OINT 1 INCH/GM PACKET TOPICAL SCH (18:00)
[2024-09-04] MEDS ORDERED: ASPIRIN 325 MG TAB PO SCH (09:00)
== END 2024-09-03 15:00 | disposition left against medical advice (07) ==
LOC: EC 12:14 → 6NMEDSUR 14:28
PROVIDERS: ADMIT Internal Medicine; ATTEND Internal Medicine
DX: R07.89 Other chest pain (principal); K21.9 Gastro-esophageal reflux disease without esophagitis; I10 Essential (primary) hypertension; E78.5 Hyperlipidemia, unspecified; F32.A Depression, unspecified; F41.9 Anxiety disorder, unspecified; Z86.73 Personal history of transient ischemic attack (TIA), and cerebral infarction without residual deficits; Z79.82 Long term (current) use of aspirin; Z79.890 Hormone replacement therapy; Z79.899 Other long term (current) drug therapy; Z53.9 Procedure and treatment not carried out, unspecified reason
CPT/HCPCS: 99285; 36415; 93005; 85379; 80053; 83735; 84484; 85025; 85610; 85730; 71046; G0378

== ENCOUNTER → 2024-10-18 | Outpatient (CLI) | payer MEDICARE ==
[~2024-10-18] MED LIST changes: -LACTATED RINGERS 1,000 ML IV SCH; -LIDOCAINE 1% (10MG/ML) FOR IV START INTRADERMA PRN; +SODIUM CHLORIDE 0.9% 250 ML in EMPTY BAG 1 BAG IV PRN
[2024-10-18 13:37] VITALS: BP 126/80; PULSE 74; RESP 16; TEMP 97.9
[2024-10-18] MEDS: SODIUM CHLORIDE 0.9% 500 ML 500 ML in EMPTY BAG 1 BAG IV PRN (13:42)
[2024-10-18] MEDS: ZOLEDRONIC ACID 5 MG in SODIUM CHLORIDE 0.9% 100 ML IV NR (13:44)
== END ==
LOC: PROCWHC3 13:21
PROVIDERS: ATTEND Family Medicine
DX: M85.852 Other specified disorders of bone density and structure, left thigh (principal)
CPT/HCPCS: 96365; J3489

== ENCOUNTER → 2024-10-20 | Outpatient (CLI) | payer MEDICARE ==
--- NOTE | 2024-10-20 13:03 | CA ---
Exercise Stress Test Report Name: Maura Beckwith Exam Date: 10/20/2024 09:27 Exam Location: [facility] Stress Ht (in): 65 Wt (lb): 132 BSA: 1.66 Ordering Phys: Parker Nguyen DO Referring Phys: Parker Nguyen DO Technologist: Heath Cuellar Age: 79 Gender: F : 1945 Procedure CPT: Indications: R07.9 CHEST PAIN ICD-10 Codes: Patient History: Medications: Sertraline, Aspirin, Norvasc Meds past 24 hrs: Pretest Chest Pain: STRESS TEST Breezy Protocol Exercise Duration (min:sec): 06:[address] Depressions (mm): Angina Score: Lerner Score: Resting HR (bpm): 87 Peak HR (bpm): 125 Resting BP (mmHg): 130 / 76 Peak BP (mmHg): 173 / 67 MPHR: 139 Target HR: 118 % MPHR: 90 METS: 7.1 Total Dose: Peak Dose: Atropine: Double Product: 84776 BP Response: Stress Termination: infusion complete Stress Symptoms: CHEST HEAVINESS,DIFFICULTY IN BREATHING Stress Summary: ECG ANALYSIS Resting ECG: Sinus rhythm. Normal conduction. No arrhythmias. Normal repolarization. Stress ECG: No ECG changes from baseline with Lexiscan infusion. CONCLUSIONS No ECG evidence of ischemia with Lexiscan infusion. Nuclear test results to follow. Dr. Geoff Sharp MD (Electronically Signed) Final Date: 20 October 2024 13:02
--- NOTE | 2024-10-20 13:34 | NM ---
EXAMINATION TYPE: NM stress cardiolite complete DATE OF EXAM: 10/20/2024 COMPARISON: 10/12/2014 CLINICAL INDICATION: Female, 79 years old with history of R07.9 CHEST PAIN; TECHNIQUE: After the intravenous administration of 9.5 mCi Tc 99m Sestamibi - Rest images obtained 4 5 minutes post injection. The patient exercised using a TIFFANIE protocol and 1 minute prior to peak e xercise was injected with 26 mCi Tc 99m Sestamibi - Stress images obtained 20 minutes post injection. FINDINGS: Targeted heart rate was achieved during performance of the study. Review of stress and rest SPECT josh ges demonstrates subtle reduced uptake along the lower myocardial septum on stress images. Gated luther lysis shows normal wall motion with an estimated left ventricular ejection fraction of 76 %. IMPRESSION: Cannot exclude a subtle area of stress-induced reversible ischemia inferior myocardial septum.. A [employer] level critical message alert has been initiated for Parker Nguyen DO via the [employer] Critical Results System on 10/20/2024 1:31 PM. This message alert has been sent to Parker crespo DO via the preferences provided by the clinician for the receipt of Radiology Critical Findings . Message ID [id number]. [facility], , 10/20/2024 1:31 PM
== END | disposition home or self-care (01) ==
LOC: RADNMMAIN 07:56
PROVIDERS: ATTEND Family Medicine
DX: R07.9 Chest pain, unspecified (principal)
CPT/HCPCS: 93017; 78452; A9500

== ENCOUNTER 2024-11-11 09:07 | Day surgery (SDC) | payer MEDICARE ==
[2024-11-10 11:33] VITALS: BMI 22.1
--- NOTE | 2024-11-11 06:39 | P.GSHP ---
History of Present Illness H&P Date: 11/11/24 CHIEF COMPLAINT: Esophageal stricture HISTORY OF PRESENT ILLNESS: The patient is a 79-year-old female who presents reports dysphagia. Upper endoscopy was offered for further evaluation and management. PAST MEDICAL HISTORY: Please see list. PAST SURGICAL HISTORY: Please see list. MEDICATIONS: Please see list. ALLERGIES: Please see list. SOCIAL HISTORY: No illicit drug use FAMILY HISTORY: No reports of Crohn disease or ulcerative colitis. REVIEW OF ORGAN SYSTEMS: CONSTITUTIONAL: No reports of fevers or chills. GI: Denies any blood in stools or constipation. PHYSICAL EXAM: VITAL SIGNS: Stable GENERAL: Well-developed and pleasant in no acute distress. HEENT: No scleral icterus. Extraocular movements grossly intact. Moist buccal mucosa. NECK: Supple without lymphadenopathy. CHEST: Unlabored respirations. Equal bilateral excursions. CARDIOVASCULAR: Regular rate and rhythm. Distal 2+ pulses. ABDOMEN: Soft, nondistended. MUSCULOSKELETAL: No clubbing, cyanosis, or edema. ASSESSMENT: 1. Esophageal stricture PLAN: 1. Recommend proceeding with an upper endoscopy with rigid dilators. Past Medical History Past Medical History: COPD, CVA/TIA, GERD/Reflux, Hyperlipidemia, Hypertension, Liver Disease, Osteoarthritis (OA), Renal Disease, Skin Disorder, Syncope, Thyroid Disorder Additional Past Medical History / Comment(s): hx hepatitis b, hx colon polyps, hx TIA- no residual effects, peptic ulcer, hiatal hernia, diarrhea, diverticulitis, diverticulosis, , skin scaling and itching of scalp- dermatitis, urinary leakage, kidney disease -"middle" range. Dr Flores is watching the numbers. season allergies, History of Any Multi-Drug Resistant Organisms: None Reported Past Surgical History: No Surgical Hx Reported Additional Past Surgical History / Comment(s): oral sugery, colonoscopy, kelin cataracts, egd Past Anesthesia/Blood Transfusion Reactions: No Reported Reaction Additional Past Anesthesia/Blood Transfusion Reaction / Comment(s): pt reports hepatitis b from blood transfusion 1967 Smoking Status: Never smoker - Past Family History Father Family Medical History: Cancer Additional Family Medical History / Comment(s): stomach cancer Medications and Allergies Home Medications Medication Instructions Recorded Confirmed Type Aspirin [Adult Low Dose Aspirin EC] 81 mg PO DAILY 10/01/18 11/10/24 History Atorvastatin [Lipitor] 20 mg PO HS 10/01/18 11/10/24 History Cholecalciferol [Vitamin D3 (25 1,000 unit PO DAILY 10/01/18 11/10/24 History Mcg = 1000 Iu)] Levothyroxine Sodium [Synthroid] 25 mcg PO DAILY 10/01/18 11/10/24 History Mirabegron [Myrbetriq] 50 mg PO DAILY 02/01/20 11/10/24 History Famotidine [Pepcid] 40 mg PO HS 08/21/22 11/10/24 History amLODIPine [Norvasc] 10 mg PO DAILY 08/21/22 11/10/24 History Acetaminophen Tab [Tylenol] 1,000 mg PO Q6HR PRN #30 tablet 08/24/22 11/10/24 Rx Losartan [Cozaar] 25 mg PO HS 06/03/23 11/10/24 History Lutein 20 mg PO DAILY 06/03/23 11/10/24 History Sertraline [Zoloft] 100 mg PO HS 06/03/23 11/10/24 History traZODone HCL [Desyrel] 50 mg PO HS PRN 06/03/23 11/10/24 History Biotin [Biotin Disolve] 5,000 mcg PO DAILY 11/10/24 11/10/24 History Calcium Carb/Mag Ox/Zinc Sulf 1 each PO DAILY 11/10/24 11/10/24 History [Rgw-Znr-Hife 334-134-5 mg Tab] Allergies Allergy/AdvReac Type Severity Reaction Status Date / Time No Known Allergies Allergy Verified 11/10/24 11:10
[2024-11-11] MEDS ORDERED: LIDOCAINE 1% (10MG/ML) FOR IV START INTRADERMA PRN (09:27)
[2024-11-11 09:34] VITALS: RESP 16; TEMP 97.7
[2024-11-11] MEDS: LACTATED RINGERS 1,000 ML IV SCH (09:36)
[2024-11-11] MEDS: IV FLUID CONTINUATION 1,000 ML IV ONE (09:37)
[2024-11-11] MEDS ORDERED: LIDOCAINE 1% INJ 10MG/ML (20 ML MDV) ONE (09:40)
[2024-11-11] MEDS ORDERED: PROPOFOL 10 MG/ML 20 ML VIAL IV ONE (09:40)
[2024-11-11 10:22] VITALS: BP 117/68; PULSE 70
--- NOTE | 2024-11-11 11:15 | P.PCN ---
Date of Procedure: 11/11/24 Description of Procedure: PREOPERATIVE DIAGNOSIS: Dysphagia. POSTOPERATIVE DIAGNOSIS: Dysphagia. History of hypertensive upper esophageal sphincter. OPERATION: Esophagogastroduodenoscopy rigid Mosotho dilator 54 Fr, upper esophageal sphincter. SURGEON: Chanda Peraza MD ANESTHESIA: MAC. INDICATIONS: The patient is a 79-year-old female who presents with dysphagia. She reports troubles with swallowing pills along her upper throat. Upper endoscopy was offered for further diagnostic evaluation and treatment. DESCRIPTION: The patient was brought into the endoscopy suite and laid in the left lateral decubitus position. An Olympus gastroscope was carefully passed along the posterior oropharynx. Upon entry into the proximal esophagus, a mild stricture was identified consistent with hypertensive upper esophageal sphincter. No erosion were found along the distal esophagus or ulcerations. The stomach was entered. The scope was passed to the second portion and third portion of the duodenum was unremarkable. Retroflexion of the scope confirmed Hill grade 3 lower esophageal valve without recurrent diaphragmatic hiatal hernia. A guidewire was placed through the scope into the stomach. The scope was removed. A 54-Irish rigid dilator was placed to 45 cm from the incisors. The dilator was left in place between 2-3 minutes. The dilator and guidewire were removed. The scope was reentered along the proximal esophagus whereby the stricture had resolved of the upper esophagus. No full-thickness injury was found along the mucosa. The stomach was desufflated. The patient tolerated the procedure well. FINDINGS: Squamocolumnar junction 37 cm from the incisors. Diaphragmatic hiatus at 40 cm. Diaphragmatic hiatal hernia 3 cm Hill grade 3 lower esophageal valve. LA grade B erosive esophagitis. Hypertensive upper esophageal sphincter dilated to 54 Irish RECOMMENDATIONS: Upper endoscopy as needed. Plan - Discharge Summary Discharge Rx Participant: No New Discharge Prescriptions: Continue Cholecalciferol [Vitamin D3 (25 Mcg = 1000 Iu)] 1,000 unit PO DAILY Aspirin [Adult Low Dose Aspirin EC] 81 mg PO DAILY Levothyroxine Sodium [Synthroid] 25 mcg PO DAILY Atorvastatin [Lipitor] 20 mg PO HS Mirabegron [Myrbetriq] 50 mg PO DAILY amLODIPine [Norvasc] 10 mg PO DAILY Famotidine [Pepcid] 40 mg PO HS Acetaminophen Tab [Tylenol] 1,000 mg PO Q6HR PRN #30 tablet PRN Reason: Pain Lutein 20 mg PO DAILY Sertraline [Zoloft] 100 mg PO HS traZODone HCL [Desyrel] 50 mg PO HS PRN PRN Reason: Insomnia Losartan [Cozaar] 25 mg PO HS Calcium Carb/Mag Ox/Zinc Sulf [Kys-Eyg-Kwto 334-134-5 mg Tab] 1 each PO DAILY Biotin [Biotin Disolve] 5,000 mcg PO DAILY Discharge Medication List Aspirin [Adult Low Dose Aspirin EC] 81 mg PO DAILY 10/01/18 [History] Atorvastatin [Lipitor] 20 mg PO HS 10/01/18 [History] Cholecalciferol [Vitamin D3 (25 Mcg = 1000 Iu)] 1,000 unit PO DAILY 10/01/18 [History] Levothyroxine Sodium [Synthroid] 25 mcg PO DAILY 10/01/18 [History] Mirabegron [Myrbetriq] 50 mg PO DAILY 02/01/20 [History] Famotidine [Pepcid] 40 mg PO HS 08/21/22 [History] amLODIPine [Norvasc] 10 mg PO DAILY 08/21/22 [History] Acetaminophen Tab [Tylenol] 1,000 mg PO Q6HR PRN #30 tablet 08/24/22 [Rx] Losartan [Cozaar] 25 mg PO HS 06/03/23 [History] Lutein 20 mg PO DAILY 06/03/23 [History] Sertraline [Zoloft] 100 mg PO HS 06/03/23 [History] traZODone HCL [Desyrel] 50 mg PO HS PRN 06/03/23 [History] Biotin [Biotin Disolve] 5,000 mcg PO DAILY 11/10/24 [History] Calcium Carb/Mag Ox/Zinc Sulf [Sup-Yhc-Cauz 334-134-5 mg Tab] 1 each PO DAILY 11/10/24 [History] Follow up Appointment(s)/Referral(s): Chanda Peraza MD [STAFF PHYSICIAN] - As Needed Patient Instructions/Handouts: *Surgery [facility] - (Anesthesia) Discharge Instructions Outpatient Surgery, Upper Endoscopy (DC), Esophageal Dilation (DC) Activity/Diet/Wound Care/Special Instructions: Warm beverages prior to eating. Discharge Disposition: HOME SELF-CARE
== END 2024-11-11 10:28 | disposition home or self-care (01) ==
LOC: ORWHC2ENDO 09:07
PROVIDERS: ATTEND Surgery Plastic and Reconstructive Surgery
DX: K20.90 Esophagitis, unspecified without bleeding (principal); K22.2 Esophageal obstruction; K44.9 Diaphragmatic hernia without obstruction or gangrene; I10 Essential (primary) hypertension; E78.5 Hyperlipidemia, unspecified; J44.9 Chronic obstructive pulmonary disease, unspecified; F17.200 Nicotine dependence, unspecified, uncomplicated; M19.90 Unspecified osteoarthritis, unspecified site; K21.9 Gastro-esophageal reflux disease without esophagitis; E07.9 Disorder of thyroid, unspecified; F41.9 Anxiety disorder, unspecified; F32.A Depression, unspecified; G45.9 Transient cerebral ischemic attack, unspecified; K25.9 Gastric ulcer, unspecified as acute or chronic, without hemorrhage or perforation; Z86.73 Personal history of transient ischemic attack (TIA), and cerebral infarction without residual deficits; Z86.0100 Personal history of colon polyps, unspecified; Z79.899 Other long term (current) drug therapy; Z79.890 Hormone replacement therapy; Z79.82 Long term (current) use of aspirin; Z79.02 Long term (current) use of antithrombotics/antiplatelets
CPT/HCPCS: 43248; J2003; J2704

== ENCOUNTER 2025-01-13 13:32 | Observation (INO) | payer MEDICARE ==
[2025-01-13 13:38] VITALS: TEMP 97.6
--- NOTE | 2025-01-13 13:49 | ED ---
General Adult HPI - General Chief complaint: Chest Pain Stated complaint: chest pressure Time Seen by Provider: 01/13/25 13:42 Source: patient, RN notes reviewed Mode of arrival: ambulatory Limitations: no limitations - History of Present Illness Initial comments: Patient is an 79-year-old female present to the emergency department with concerns with chest discomfort. Onset of symptoms was this morning. Patient has had 3 episodes. Discomfort is with exertion. Minimal at rest at this time. Discomfort described as pressure. Patient has mild associated dyspnea and nausea. No sweating. Patient has been having some similar symptoms in July. Patient has seen cardiology and has had some testing. Patient is supposed to have a appointment again tomorrow however they canceled on her. - Related Data Home Medications Medication Instructions Recorded Confirmed Aspirin [Adult Low Dose Aspirin EC] 81 mg PO DAILY 10/01/18 01/13/25 Atorvastatin [Lipitor] 20 mg PO HS 10/01/18 01/13/25 Levothyroxine Sodium [Synthroid] 25 mcg PO [id number] 10/01/18 01/13/25 Mirabegron [Myrbetriq] 50 mg PO DAILY 02/01/20 01/13/25 Famotidine [Pepcid] 40 mg PO DAILY 08/21/22 01/13/25 amLODIPine [Norvasc] 10 mg PO DAILY 08/21/22 01/13/25 Losartan [Cozaar] 25 mg PO DAILY 06/03/23 01/13/25 Lutein 40 mg PO DAILY 06/03/23 01/13/25 Ascorbic Acid [Vitamin C] 1,000 mg PO DAILY 01/13/25 01/13/25 Isosorbide Mononitrate ER [Imdur] 30 mg PO DAILY 01/13/25 01/13/25 Magnesium 250 mg PO DAILY 01/13/25 01/13/25 Sertraline [Zoloft] 150 mg PO DAILY 01/13/25 01/13/25 traZODone HCL 150 mg PO HS 01/13/25 01/13/25 Allergies Allergy/AdvReac Type Severity Reaction Status Date / Time No Known Allergies Allergy Verified 01/13/25 14:14 Review of Systems ROS Statement: Those systems with pertinent positive or pertinent negative responses have been documented in the HPI. ROS Other: All systems not noted in ROS Statement are negative. Constitutional: Denies: fever Eyes: Denies: eye pain ENT: Denies: ear pain Respiratory: Denies: cough Cardiovascular: Reports: as per HPI, chest pain Endocrine: Denies: fatigue Gastrointestinal: Denies: abdominal pain Genitourinary: Denies: dysuria Past Medical History Past Medical History: COPD, CVA/TIA, GERD/Reflux, Hyperlipidemia, Hypertension, Liver Disease, Osteoarthritis (OA), Renal Disease, Skin Disorder, Syncope, Thyroid Disorder Additional Past Medical History / Comment(s): hx hepatitis b, hx colon polyps, hx TIA- no residual effects, peptic ulcer, hiatal hernia, diarrhea, diverticulitis, diverticulosis, , skin scaling and itching of scalp- dermatitis, urinary leakage, kidney disease -"middle" range. Dr Flroes is watching the numbers. season allergies, History of Any Multi-Drug Resistant Organisms: None Reported Past Surgical History: No Surgical Hx Reported Additional Past Surgical History / Comment(s): oral sugery, colonoscopy, kelin cataracts, egd Past Anesthesia/Blood Transfusion Reactions: No Reported Reaction Additional Past Anesthesia/Blood Transfusion Reaction / Comment(s): pt reports hepatitis b from blood transfusion 1967 Past Psychological History: Anxiety, Depression Smoking Status: Never smoker Past Alcohol Use History: None Reported Past Drug Use History: None Reported - Past Family History Father Family Medical History: Cancer Additional Family Medical History / Comment(s): stomach cancer General Exam Limitations: no limitations General appearance: alert Eye exam: Present: normal appearance Neck exam: Present: normal inspection Respiratory exam: Present: normal lung sounds bilaterally. Absent: chest wall tenderness Cardiovascular Exam: Present: regular rate, normal rhythm Expanded Peripheral pulses: 2+: Radial (R), Radial (L), Dorsalis Pedis (R), Dorsalis Pedis (L) GI/Abdominal exam: Present: soft. Absent: tenderness, pulsatile mass Extremities exam: Present: normal inspection. 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 sent in by a medical professional or institution (, [facility], TALLOW REFINER, urgent care, hospital, or senior living...) When possible be specific @ -No Did you speak to anyone other than the patient for history (EMS, parent, family, police, friend...)? What history was obtained from this source @ -No Did you review nursing and triage notes (agree or disagree)? Why? @ -I reviewed and agree with nursing and triage notes Were old charts reviewed (outside hosp., previous admission, EMS record, old EKG, old radiological studies, urgent care reports/EKG's, senior living records)? Report findings @ -No old charts were reviewed Differential Diagnosis (chest pain, altered mental status, abdominal pain women, abdominal pain men, vaginal bleeding, weakness, fever, dyspnea, syncope, headache, dizziness, GI bleed, back pain, seizure, CVA, palpatations, mental health, musculoskeletal)? @ -Differential Chest Pain: Stable Angina, Unstable Angina, STEMI, NSTEMI Aortic Dissection, Pneumothorax, Musculoskeletal, Esophageal Spasm GERD, Cholecystitis, Pancreatitis, Zoster, this is not meant to be an all-inclusive list. EKG interpreted by me (3pts min.). @ -As above X-rays interpreted by me (1pt min.). @ -Chest x-ray interpreted by myself shows no acute process CT interpreted by me (1pt min.). @ -None done U/S interpreted by me (1pt. min.). @ -None done What testing was considered but not performed or refused? (CT, X-rays, U/S, labs)? Why? @ -None What meds were considered but not given or refused? Why? @ -None Did you discuss the management of the patient with other professionals (professionals i.e. [facility] Howell, TALLOW REFINER, lab, RT, psych nurse, administrator social welfare, buffing machine operator semiautomatic, teacher, natural resource officer, community case manager)? Give summary @ -Case discussed with Dr. Mendes to admit covering Dr. Nguyen Was smoking cessation discussed for >3mins.? @ -No Was critical care preformed (if so, how long)? @ -No Were there social determinants of health that impacted care today? How? (Homelessness, low income, unemployed, alcoholism, drug addiction, transportation, low edu. Level, literacy, decrease access to med. care, halfway, rehab)? @ -No Was there de-escalation of care discussed even if they declined (Discuss DNR or withdrawal of care, Hospice)? DNR status @ -No What co-morbidities impacted this encounter? (DM, HTN, Smoking, COPD, CAD, Cancer, CVA, ARF, Chemo, Hep., AIDS, mental health diagnosis, sleep apnea, morbid obesity)? @ -None Was patient admitted / discharged? Hospital course, mention meds given and route, prescriptions, significant lab abnormalities, going to OR and other pertinent info. @ -Patient presents with chest discomfort ongoing for several months, worse today. Initial troponin unremarkable. Patient reevaluated. Patient and family updated. Patient will be admitted with cardiac consult, admission orders written. Undiagnosed new problem with uncertain prognosis? @ -No Drug Therapy requiring intensive monitoring for toxicity (Heparin, Nitro, Insulin, Cardizem)? @ -No Were any procedures done? @ -No Diagnosis/symptom? @ -Chest pain Acute, or Chronic, or Acute on Chronic? @ -Acute Uncomplicated (without systemic symptoms) or Complicated (systemic symptoms)? @ -Default Side effects of treatment? @ -No Exacerbation, Progression, or Severe Exacerbation? @ -No Poses a threat to life or bodily function? How? (Chest pain, USA, MD, pneumonia, PE, COPD, DKA, ARF, appy, cholecystitis, CVA, Diverticulitis, Homicidal, Suicidal, threat to staff... and all critical care pts) @ -Threat to cardiac function - Lab Data Result diagrams: 01/13/25 13:47 01/13/25 13:47 Lab Results 01/13/25 01/13/25 01/13/25 Range/Units 13:47 13:47 13:47 WBC 4.1 (3.8-10.6) k/uL RBC 4.25 (3.80-5.40) m/uL Hgb 13.4 (11.4-16.0) gm/dL Hct 40.1 (34.0-46.0) % MCV 94.3 (80.0-100.0) fL MCH 31.4 (25.0-35.0) pg MCHC 33.3 (31.0-37.0) g/dL RDW 12.8 (11.5-15.5) % Plt Count 271 (150-450) k/uL MPV 8.1 Neutrophils % 60 % Lymphocytes % 27 % Monocytes % 7 % Eosinophils % 2 % Basophils % 1 % Neutrophils # 2.5 (1.3-7.7) k/uL Lymphocytes # 1.1 (1.0-4.8) k/uL Monocytes # 0.3 (0-1.0) k/uL Eosinophils # 0.1 (0-0.7) k/uL Basophils # 0.0 (0-0.2) k/uL PT 10.8 (10.0-12.5) sec INR 1.0 (<1.2) APTT 24.1 (22.0-30.0) sec D-Dimer 0.32 (<0.60) mg/L FEU Sodium 138 (137-145) mmol/L Potassium 4.8 (3.5-5.1) mmol/L Chloride 100 (98-107) mmol/L Carbon Dioxide 29 (22-30) mmol/L Anion Gap 9 mmol/L BUN 19 H (7-17) mg/dL Creatinine 1.22 H (0.52-1.04) mg/dL Est GFR (CKD-EPI)AfAm 48 (>60 ml/min/1.73 sqM) Est GFR (CKD-EPI)NonAf 42 (>60 ml/min/1.73 sqM) Glucose 98 (74-99) mg/dL Calcium 9.6 (8.4-10.2) mg/dL Magnesium 2.2 (1.6-2.3) mg/dL Total Bilirubin 0.5 (0.2-1.3) mg/dL AST 27 (14-36) U/L ALT 15 (4-34) U/L Alkaline Phosphatase 62 (38-126) U/L Troponin I (0.000-0.034) ng/mL NT-Pro-B Natriuret Pep 109 pg/mL Total Protein 7.7 (6.3-8.2) g/dL Albumin 4.6 (3.5-5.0) g/dL Lipase 310 H (23-300) U/L 01/13/25 Range/Units 13:47 WBC (3.8-10.6) k/uL RBC (3.80-5.40) m/uL Hgb (11.4-16.0) gm/dL Hct (34.0-46.0) % MCV (80.0-100.0) fL MCH (25.0-35.0) pg MCHC (31.0-37.0) g/dL RDW (11.5-15.5) % Plt Count (150-450) k/uL MPV Neutrophils % % Lymphocytes % % Monocytes % % Eosinophils % % Basophils % % Neutrophils # (1.3-7.7) k/uL Lymphocytes # (1.0-4.8) k/uL Monocytes # (0-1.0) k/uL Eosinophils # (0-0.7) k/uL Basophils # (0-0.2) k/uL PT (10.0-12.5) sec INR (<1.2) APTT (22.0-30.0) sec D-Dimer (<0.60) mg/L FEU Sodium (137-145) mmol/L Potassium (3.5-5.1) mmol/L Chloride (98-107) mmol/L Carbon Dioxide (22-30) mmol/L Anion Gap mmol/L BUN (7-17) mg/dL Creatinine (0.52-1.04) mg/dL Est GFR (CKD-EPI)AfAm (>60 ml/min/1.73 sqM) Est GFR (CKD-EPI)NonAf (>60 ml/min/1.73 sqM) Glucose (74-99) mg/dL Calcium (8.4-10.2) mg/dL Magnesium (1.6-2.3) mg/dL Total Bilirubin (0.2-1.3) mg/dL AST (14-36) U/L ALT (4-34) U/L Alkaline Phosphatase (38-126) U/L Troponin I <0.012 (0.000-0.034) ng/mL NT-Pro-B Natriuret Pep pg/mL Total Protein (6.3-8.2) g/dL Albumin (3.5-5.0) g/dL Lipase (23-300) U/L Disposition Clinical Impression: Chest pain Disposition: ADMITTED IP TO THIS HOSP Is patient prescribed a controlled substance at d/c from ED?: No Referrals: Parker Nguyen DO [Primary Care Provider] - 1-2 days Time of Disposition: 14:36
[2025-01-13 13:54] VITALS: RESP 16
[2025-01-13] MEDS: ASPIRIN 81 MG PO STA (13:58)
[2025-01-13] MEDS: NITROGLYCERIN OINT 1 INCH/GM PACKET TOPICAL STA (13:59)
[2025-01-13 14:16] LABS: Basophils % (A) 1 %; Eosinophils # (A) 0.1 k/uL (0-0.7); Eosinophils % (A) 2 %; HCT 40.1 % (34.0-46.0); HGB 13.4 gm/dL (11.4-16.0); Lymphocytes # (A) 1.1 k/uL (1.0-4.8); Lymphocytes % (A) 27 %; MCH 31.4 pg (25.0-35.0); MCHC 33.3 g/dL (31.0-37.0); MCV 94.3 fL (80.0-100.0); Mean Platelet Volume 8.1; Monocytes # (A) 0.3 k/uL (0-1.0); Monocytes % (A) 7 %; Neutrophils # (A) 2.5 k/uL (1.3-7.7); Neutrophils % (A) 60 %; Platelet Count 271 k/uL (150-450); RBC 4.25 m/uL (3.80-5.40); RDW 12.8 % (11.5-15.5); WBC 4.1 k/uL (3.8-10.6)
[2025-01-13 14:24] LABS: ALT 15 U/L (4-34); AST 27 U/L (14-36); African American GFR (CKD) 48 (>60 ml/min/1.73 sqM); Albumin 4.6 g/dL (3.5-5.0); Alkaline Phosphatase 62 U/L (38-126); Anion Gap 9 mmol/L; Blood Urea Nitrogen 19 mg/dL (7-17); Calcium 9.6 mg/dL (8.4-10.2); Carbon Dioxide 29 mmol/L (22-30); Chloride 100 mmol/L (98-107); Glucose 98 mg/dL (74-99); Lipase 310 U/L (23-300); Magnesium 2.2 mg/dL (1.6-2.3); Non-African American GFR(CKD) 42 (>60 ml/min/1.73 sqM); Potassium 4.8 mmol/L (3.5-5.1); Sodium 138 mmol/L (137-145); Total Bilirubin 0.5 mg/dL (0.2-1.3); Total Protein 7.7 g/dL (6.3-8.2)
[2025-01-13 14:30] LABS: Partial Thromboplastin Time 24.1 sec (22.0-30.0); Prothrombin Time 10.8 sec (10.0-12.5)
[2025-01-13 14:33] LABS: NT-Pro-B-Type Natriuretic Pept 109 pg/mL
[2025-01-13] MEDS ORDERED: NITROGLYCERIN SL TABS 0.4 MG TAB SUBLINGUAL PRN (14:36)
--- NOTE | 2025-01-13 14:37 | XR ---
EXAMINATION TYPE: XR chest 2V DATE OF EXAM: 01/13/2025 2:28 PM COMPARISON: 09/03/2024 CLINICAL INDICATION: Female, 79 years old with history of Chest Pain, TECHNIQUE: XR chest 2V view(s) obtained. FINDINGS: The heart size is normal. The pulmonary vasculature is normal. The lungs are clear. IMPRESSION: 1. No acute pulmonary process. [facility], , 01/13/2025 2:35 PM
[2025-01-13] MEDS: LEVOTHYROXINE 25 MCG TAB PO ONE (14:46)
[2025-01-13 15:36] VITALS: BP 130/68; PULSE 68
[2025-01-13] MEDS ORDERED: ATORVASTATIN 20 MG TAB PO SCH (21:00)
[2025-01-13] MEDS ORDERED: traZODone HCL 50 MG TAB PO SCH (21:00)
[2025-01-14] MEDS ORDERED: LEVOTHYROXINE 25 MCG TAB PO SCH (06:30)
[2025-01-14] MEDS ORDERED: ASPIRIN 81 MG PO SCH (09:00)
[2025-01-14] MEDS ORDERED: NON FORMULARY DRUG (Lutein [Lutein] 20 MG Capsule) PO SCH (09:00)
[2025-01-14] MEDS ORDERED: NON FORMULARY DRUG (Mirabegron [Myrbetriq] 50 MG Tab.Er.24h) PO SCH (09:00)
[2025-01-14] MEDS ORDERED: FAMOTIDINE 20 MG TAB PO SCH (09:00)
[2025-01-14] MEDS ORDERED: ISOSORBIDE MONONITRATE ER 30 MG TAB.ER.24H PO SCH (09:00)
[2025-01-14] MEDS ORDERED: amLODIPine 10 MG TAB PO SCH (09:00)
[2025-01-14] MEDS ORDERED: SERTRALINE 50 MG TAB PO SCH (09:00)
[2025-01-14] MEDS ORDERED: ASCORBIC ACID 500 MG TAB PO SCH (09:00)
[2025-01-14] MEDS ORDERED: LOSARTAN 25 MG TAB PO SCH (09:00)
[2025-01-14] MEDS ORDERED: ASPIRIN 325 MG TAB PO SCH (09:00)
[2025-01-14] MEDS ORDERED: MAGNESIUM OXIDE 400 MG TAB PO SCH (09:00)
--- NOTE | 2025-01-14 18:33 | P.DS ---
Providers Date of admission: 01/13/25 14:37 Expected date of discharge: 01/13/25 Attending physician: Arden Hare MD Consults: 01/13/25 14:36 Consult Physician Urgent Consulting Provider: Geoff Sharp Consult Reason/Comments: cp Do you want consulting provider notified?: Yes Primary care physician: [facility] Hospital Course: Patient presented to the ER with symptoms of chest pain that have been ongoing and intermittent over the last few days. Patient did not want to be admitted and left AGAINST MEDICAL ADVICE. Patient was only evaluated by ER physician and nursing staff. Patient was not evaluated by admitting team. Please refer to ER documentation for further HPI. The impression and plan of care has been dictated as a scribe by Lindy Sullivan, Nurse Practitioner as directed. Dr. Arden Hare MD I have performed a history and examination and MDM of this patient, discussed the same with the dictator, and agree with the dictator's assessment and plan as written ,documented as a scribe. Based on total visit time, I have performed more than 50% of the visit. Patient Condition at Discharge: Undetermined Plan - Discharge Summary New Discharge Prescriptions: No Action Aspirin [Adult Low Dose Aspirin EC] 81 mg PO DAILY Levothyroxine Sodium [Synthroid] 25 mcg PO MOTUWETHFRSA Atorvastatin [Lipitor] 20 mg PO HS Mirabegron [Myrbetriq] 50 mg PO DAILY amLODIPine [Norvasc] 10 mg PO DAILY Famotidine [Pepcid] 40 mg PO DAILY Lutein 40 mg PO DAILY traZODone HCL 150 mg PO HS Sertraline [Zoloft] 150 mg PO HS Magnesium 250 mg PO DAILY Ascorbic Acid [Vitamin C] 1,000 mg PO DAILY Losartan [Cozaar] 25 mg PO DAILY Isosorbide Mononitrate ER [Imdur] 30 mg PO DAILY Discharge Medication List Aspirin [Adult Low Dose Aspirin EC] 81 mg PO DAILY 10/01/18 [History] Atorvastatin [Lipitor] 20 mg PO HS 10/01/18 [History] Levothyroxine Sodium [Synthroid] 25 mcg PO MOTUWETHFRSA 10/01/18 [History] Mirabegron [Myrbetriq] 50 mg PO DAILY 02/01/20 [History] Famotidine [Pepcid] 40 mg PO DAILY 08/21/22 [History] amLODIPine [Norvasc] 10 mg PO DAILY 08/21/22 [History] Losartan [Cozaar] 25 mg PO DAILY 06/03/23 [History] Lutein 40 mg PO DAILY 06/03/23 [History] Ascorbic Acid [Vitamin C] 1,000 mg PO DAILY 01/13/25 [History] Isosorbide Mononitrate ER [Imdur] 30 mg PO DAILY 01/13/25 [History] Magnesium 250 mg PO DAILY 01/13/25 [History] Sertraline [Zoloft] 150 mg PO HS 01/13/25 [History] traZODone HCL 150 mg PO HS 01/13/25 [History] Follow up Appointment(s)/Referral(s): Parker Nguyen DO [Primary Care Provider] - 1-2 days Discharge Disposition: LEFT AGAINST MEDICAL ADVICE
--- NOTE | 2025-01-14 18:33 | P.HPIM ---
History of Present Illness H&P Date: 01/13/25 Patient presented to the ER with symptoms of chest pain that have been ongoing and intermittent over the last few days. Patient did not want to be admitted and left AGAINST MEDICAL ADVICE. Patient was only evaluated by ER physician and nursing staff. Patient was not evaluated by admitting team. Please refer to ER documentation for further HPI. The impression and plan of care has been dictated as a scribe by Lindy Sullivan, Nurse Practitioner as directed. Dr. Arden Hare MD I have performed a history and examination and MDM of this patient, discussed the same with the dictator, and agree with the dictator's assessment and plan as written ,documented as a scribe. Based on total visit time, I have performed more than 50% of the visit. Past Medical History Past Medical History: COPD, CVA/TIA, GERD/Reflux, Hyperlipidemia, Hypertension, Liver Disease, Osteoarthritis (OA), Renal Disease, Skin Disorder, Syncope, Thyroid Disorder Additional Past Medical History / Comment(s): hx hepatitis b, hx colon polyps, hx TIA- no residual effects, peptic ulcer, hiatal hernia, diarrhea, diverticulitis, diverticulosis, , skin scaling and itching of scalp- dermatitis, urinary leakage, kidney disease -"middle" range. Dr Flores is watching the numbers. season allergies, History of Any Multi-Drug Resistant Organisms: None Reported Past Surgical History: No Surgical Hx Reported Additional Past Surgical History / Comment(s): oral sugery, colonoscopy, kelin cataracts, egd Past Anesthesia/Blood Transfusion Reactions: No Reported Reaction Additional Past Anesthesia/Blood Transfusion Reaction / Comment(s): pt reports hepatitis b from blood transfusion 1967 Past Psychological History: Anxiety, Depression Smoking Status: Never smoker Past Alcohol Use History: None Reported Past Drug Use History: None Reported - Past Family History Father Family Medical History: Cancer Additional Family Medical History / Comment(s): stomach cancer Medications and Allergies Home Medications Medication Instructions Recorded Confirmed Type Aspirin [Adult Low Dose Aspirin EC] 81 mg PO DAILY 10/01/18 01/13/25 History Atorvastatin [Lipitor] 20 mg PO HS 10/01/18 01/13/25 History Levothyroxine Sodium [Synthroid] 25 mcg PO MOTUWETHFRSA 10/01/18 01/13/25 History Mirabegron [Myrbetriq] 50 mg PO DAILY 02/01/20 01/13/25 History Famotidine [Pepcid] 40 mg PO DAILY 08/21/22 01/13/25 History amLODIPine [Norvasc] 10 mg PO DAILY 08/21/22 01/13/25 History Losartan [Cozaar] 25 mg PO DAILY 06/03/23 01/13/25 History Lutein 40 mg PO DAILY 06/03/23 01/13/25 History Ascorbic Acid [Vitamin C] 1,000 mg PO DAILY 01/13/25 01/13/25 History Isosorbide Mononitrate ER [Imdur] 30 mg PO DAILY 01/13/25 01/13/25 History Magnesium 250 mg PO DAILY 01/13/25 01/13/25 History Sertraline [Zoloft] 150 mg PO HS 01/13/25 01/13/25 History traZODone HCL 150 mg PO HS 01/13/25 01/13/25 History Allergies Allergy/AdvReac Type Severity Reaction Status Date / Time No Known Allergies Allergy Verified 01/13/25 20:31 Results CBC & Chem 7: 01/13/25 13:47 01/13/25 13:47
== END 2025-01-13 15:40 | disposition left against medical advice (07) ==
LOC: EC 13:32 → 6NMEDSUR 14:37
PROVIDERS: ADMIT Internal Medicine; ATTEND Internal Medicine
DX: R07.89 Other chest pain (principal); Z53.29 Procedure and treatment not carried out because of patient's decision for other reasons; J44.9 Chronic obstructive pulmonary disease, unspecified; K21.9 Gastro-esophageal reflux disease without esophagitis; I10 Essential (primary) hypertension; E78.5 Hyperlipidemia, unspecified; F32.A Depression, unspecified; F41.9 Anxiety disorder, unspecified; Z86.73 Personal history of transient ischemic attack (TIA), and cerebral infarction without residual deficits; Z79.82 Long term (current) use of aspirin; Z79.890 Hormone replacement therapy; Z79.899 Other long term (current) drug therapy
CPT/HCPCS: 99285; 36415; 93005; 85379; 83880; 80053; 83690; 83735; 84484; 85025; 85610; 85730; 71046; G0378

== ENCOUNTER 2025-01-13 20:25 | Observation (INO) | payer MEDICARE ==
[2025-01-13 20:31] VITALS: TEMP 97.9
--- NOTE | 2025-01-13 21:28 | ED ---
General Adult HPI - General Chief complaint: Syncope Stated complaint: Syncope Time Seen by Provider: 01/13/25 20:26 Source: patient Mode of arrival: EMS Limitations: no limitations - History of Present Illness Initial comments: Dictation was produced using [employer] dictation software. please excuse any grammatical, word or spelling errors. Chief Complaint: 79-year-old female who was seen here in the ER today presents to the emergency department for syncope History of Present Illness: Patient is 79-year-old female she was here in the emergency department earlier. She agrees presents to the ER for syncope. Patient was seen in emergency department earlier for chest pressure. She was admitted however did not want to be admitted because she wanted to go home to be in her own house. Patient had another episode in front of her son. She started complain of chest pressure and became flushed and was unconscious for about 5 to 10 seconds. There is no convulsive activity seen by son. She was brought back to the ER and have would like to be admitted to the hospital. Patient Nuys any such symptoms at the bedside at this time. The ROS documented in this emergency department record has been reviewed and confirmed by me. Those systems with pertinent positive or negative responses have been documented in the HPI. All other systems are other negative and/or noncontributory. - Related Data Home Medications Medication Instructions Recorded Confirmed Aspirin [Adult Low Dose Aspirin EC] 81 mg PO DAILY 10/01/18 01/13/25 Atorvastatin [Lipitor] 20 mg PO HS 10/01/18 01/13/25 Levothyroxine Sodium [Synthroid] 25 mcg PO MOTUWETHFRSA 10/01/18 01/13/25 Mirabegron [Myrbetriq] 50 mg PO DAILY 02/01/20 01/13/25 Famotidine [Pepcid] 40 mg PO DAILY 08/21/22 01/13/25 amLODIPine [Norvasc] 10 mg PO DAILY 08/21/22 01/13/25 Losartan [Cozaar] 25 mg PO DAILY 06/03/23 01/13/25 Lutein 40 mg PO DAILY 06/03/23 01/13/25 Ascorbic Acid [Vitamin C] 1,000 mg PO DAILY 01/13/25 01/13/25 Isosorbide Mononitrate ER [Imdur] 30 mg PO DAILY 01/13/25 01/13/25 Magnesium 250 mg PO DAILY 01/13/25 01/13/25 Sertraline [Zoloft] 150 mg PO HS 01/13/25 01/13/25 traZODone HCL 150 mg PO HS 01/13/25 01/13/25 Allergies Allergy/AdvReac Type Severity Reaction Status Date / Time No Known Allergies Allergy Verified 01/13/25 20:31 Review of Systems ROS Statement: Those systems with pertinent positive or pertinent negative responses have been documented in the HPI. ROS Other: All systems not noted in ROS Statement are negative. Past Medical History Past Medical History: COPD, CVA/TIA, GERD/Reflux, Hyperlipidemia, Hypertension, Liver Disease, Osteoarthritis (OA), Renal Disease, Skin Disorder, Syncope, Thyroid Disorder Additional Past Medical History / Comment(s): hx hepatitis b, hx colon polyps, hx TIA- no residual effects, peptic ulcer, hiatal hernia, diarrhea, diverticulitis, diverticulosis, , skin scaling and itching of scalp- dermatitis, urinary leakage, kidney disease -"middle" range. Dr Flores is watching the numbers. season allergies, History of Any Multi-Drug Resistant Organisms: None Reported Past Surgical History: No Surgical Hx Reported Additional Past Surgical History / Comment(s): oral sugery, colonoscopy, kelin cataracts, egd Past Anesthesia/Blood Transfusion Reactions: No Reported Reaction Additional Past Anesthesia/Blood Transfusion Reaction / Comment(s): pt reports hepatitis b from blood transfusion 1967 Past Psychological History: Anxiety, Depression Smoking Status: Never smoker Past Alcohol Use History: None Reported Past Drug Use History: None Reported - Past Family History Father Family Medical History: Cancer Additional Family Medical History / Comment(s): stomach cancer General Exam - General Exam Comments Initial Comments: PHYSICAL EXAM: General Impression: Alert and oriented x3, not in acute distress HEENT: Normocephalic atraumatic, extra-ocular movements intact, pupils equal and reactive to light bilaterally, mucous membranes moist. Cardiovascular: Heart regular rate and rhythm Chest: Able to complete full sentences, no retractions, no tachypnea Abdomen: abdomen soft, non-tender, non-distended, no organomegaly Musculoskeletal: Pulses present and equal in all extremities, no peripheral edema Motor: no focal deficits noted Neurological: CN II-XII grossly intact, no focal motor or sensory deficits noted Skin: Intact with no visualized rashes Psych: Normal affect and mood Limitations: no limitations Course Vital Signs 01/13/25 20:26 Temperature 97.9 F Pulse Rate 74 Respiratory 17 Rate Blood Pressure 136/51 O2 Sat by Pulse 96 Oximetry EKG Findings - EKG Comments: EKG Findings:: My EKG interpretation: Ventricular rate 67, sinus rhythm,. 142, QRS 102, QTc 418. No MI prolongation, no QTC prolongation, no ST or T-wave parsons es noted. Overall, this EKG is unremarkable Medical Decision Making - Medical Decision Making Was pt. sent in by a medical professional or institution (, PA, MANAGER TRAFFIC, urgent care, hospital, or shelter...) When possible be specific @ -No Did you speak to anyone other than the patient for history (EMS, parent, family, police, friend...)? What history was obtained from this source @ -As above Did you review nursing and triage notes (agree or disagree)? Why? @ -I reviewed and agree with nursing and triage notes Were old charts reviewed (outside hosp., previous admission, EMS record, old EKG, old radiological studies, urgent care reports/EKG's, shelter records)? Report findings @ -No old charts were reviewed Differential Diagnosis (chest pain, altered mental status, abdominal pain women, abdominal pain men, vaginal bleeding, musculoskeletal, weakness, fever, dyspnea, syncope, headache, dizziness, GI bleed, back pain, seizure, CVA, palpatations, mental health)? @ -Differential Syncope: Valvular disease, hypertrophic cardiomyopathy, pulmonary embolism, tamponade, tachycardia, bradycardia, UT, hypovolemia, hemorrhage, dissection, anemia, intracranial hemorrhage, seizure, hypoglycemia, carbon monoxide poisoning, this is not meant to be an all-inclusive list. EKG interpreted by me (3pts min.). @ -See above X-rays interpreted by me (1pt min.). @ -None done CT interpreted by me (1pt min.). @ -None done U/S interpreted by me (1pt. min.). @ -None done What testing was considered but not performed or refused? (CT, X-rays, U/S, labs)? Why? @ -None What meds were considered but not given or refused? Why? @ -None Was smoking cessation discussed for >3mins.? @ -No Were there social determinants of health that impacted care today? How? (Homelessness, low income, unemployed, alcoholism, drug addiction, transportation, low edu. Level, literacy, decrease access to med. care, residential, rehab)? @ -No Was there de-escalation of care discussed even if they declined (Discuss DNR or withdrawal of care, Hospice)? DNR status @ -No What co-morbidities impacted this encounter? (DM, HTN, Smoking, COPD, CAD, Cancer, CVA, ARF, Chemo, Hep., AIDS, mental health diagnosis, sleep apnea, morbid obesity)? @ -None Was patient admitted / discharged? Hospital course, mention meds given and route, prescriptions, significant lab abnormalities, going to OR and other pertinent info. @ -79-year-old female who was seen in the emergency department earlier and admitted and left AGAINST MEDICAL ADVICE represents back to the emergency department after having continued syncope. Vital signs are stable. Patient well-appearing at the bedside. Basic labs and troponin ordered. Patient admitted. Case discussed with hospitalist for admission Did you discuss the management of the patient with other professionals (professionals i.e. , PA, MANAGER TRAFFIC, lab, RT, psych nurse, social media project manager, linting machine operator, teacher, chief administrative officer, telehealth case manager)? Give summary @ -No Was critical care preformed (if so, how long)? @ -No Undiagnosed new problem with uncertain prognosis? @ -No Drug Therapy requiring intensive monitoring for toxicity (Heparin, Nitro, Insulin, Cardizem)? @ -No Were any procedures done? @ -No Diagnosis/symptom? Acute, or Chronic, or Acute on Chronic? Uncomplicated (without systemic symptoms) or Complicated (systemic symptoms)? @ -Chest pressure, syncope Side effects of treatment? @ -No Exacerbation, Progression, or Severe Exacerbation? @ -No Poses a threat to life or bodily function? How? (Chest pain, USA, UT, pneumonia, PE, COPD, DKA, ARF, appy, cholecystitis, CVA, Diverticulitis, Homicidal, Suicidal, threat to staff... and all critical care pts) @ -yes Disposition Clinical Impression: Syncope Disposition: ADMITTED IP TO THIS [facility] Condition: Fair Referrals: Parker Nguyen DO [Primary Care Provider] - 1-2 days Decision Time: 21:28
[2025-01-13 21:39] LABS: Basophils # (A) 0.1 k/uL (0-0.2); Basophils % (A) 1 %; Eosinophils # (A) 0.1 k/uL (0-0.7); Eosinophils % (A) 2 %; HCT 36.3 % (34.0-46.0); Lymphocytes # (A) 1.2 k/uL (1.0-4.8); Lymphocytes % (A) 23 %; MCH 31.6 pg (25.0-35.0); MCHC 33.1 g/dL (31.0-37.0); MCV 95.6 fL (80.0-100.0); Mean Platelet Volume 7.7; Monocytes # (A) 0.4 k/uL (0-1.0); Monocytes % (A) 8 %; Neutrophils # (A) 3.3 k/uL (1.3-7.7); Neutrophils % (A) 63 %; Platelet Count 263 k/uL (150-450); RBC 3.79 m/uL (3.80-5.40); RDW 12.3 % (11.5-15.5); WBC 5.2 k/uL (3.8-10.6)
[2025-01-13 21:46] LABS: African American GFR (CKD) 46 (>60 ml/min/1.73 sqM); Anion Gap 9 mmol/L; Blood Urea Nitrogen 21 mg/dL (7-17); Calcium 9.6 mg/dL (8.4-10.2); Carbon Dioxide 30 mmol/L (22-30); Chloride 99 mmol/L (98-107); Glucose 106 mg/dL (74-99); Magnesium 2.3 mg/dL (1.6-2.3); Non-African American GFR(CKD) 40 (>60 ml/min/1.73 sqM); Potassium 3.9 mmol/L (3.5-5.1); Sodium 138 mmol/L (137-145)
[2025-01-13] MEDS ORDERED: NALOXONE 0.4 MG/ML 1 ML VIAL IV PRN (22:33)
[2025-01-14] MEDS: SODIUM CHLORIDE 0.9% 1,000 ML IV SCH (00:28)
[2025-01-14] MEDS ORDERED: ALPRAZolam 0.25 MG TAB PO PRN (08:54)
[2025-01-14] MEDS ORDERED: ALPRAZolam 0.5 MG TAB PO PRN (08:54)
[2025-01-14] MEDS ORDERED: NITROGLYCERIN SL TABS 0.4 MG TAB SUBLINGUAL PRN (08:54)
[2025-01-14] MEDS: ATORVASTATIN 80 MG TAB PO STA (09:21)
[2025-01-14] MEDS: ASPIRIN 325 MG TAB PO STA (09:21)
[2025-01-14] MEDS: LEVOTHYROXINE 25 MCG TAB PO ONE (09:47)
[2025-01-14] MEDS: IV FLUID CONTINUATION 1,000 ML IV ONE (11:27)
[2025-01-14] MEDS: HEPARIN SODIUM,PORCINE 10,000 UNIT in SODIUM CHLORIDE 0.9% 1,000 ML IRRIGATION PRN (11:36)
[2025-01-14] MEDS: HEPARIN SODIUM,PORCINE (1 ML) 2,500 UNIT in SODIUM CHLORIDE 0.9% 250 ML IRRIGATION PRN (11:36)
[2025-01-14] MEDS: MIDAZOLAM 2 MG/2 ML VIAL IVP ONE (11:43)
[2025-01-14] MEDS: fentaNYL (PF) 50 MCG/ML 2 ML AMP IVP ONE (11:43)
[2025-01-14] MEDS: LIDOCAINE 1% INJ 10MG/ML (20 ML MDV) SQ ONE (11:46)
[2025-01-14] MEDS: VERAPAMIL SYRINGE (5 MG/10 ML) INTRAARTER ONE (11:47)
[2025-01-14] MEDS: HEPARIN SODIUM 1,000 UN/ML (10ML VL) IVP ONE (11:50)
[2025-01-14] MEDS: IOPAMIDOL-370 100ML BTL INJ ONE ×2 (11:56)
[2025-01-14] MEDS ORDERED: RX INFO: IV CONTRAST WAS GIVEN 1 EACH MISC MISCELLANE PRN (12:07)
--- NOTE | 2025-01-14 12:07 | P.CARDCATH ---
Date of Procedure: 01/14/25 Description of Procedure: DIAGNOSTIC CORONARY ANGIOGRAPHY and LEFT HEART CATH REPORT PROCEDURES PERFORMED: Left heart catheterization Selective coronary angiography Moderate conscious sedation 12 mins Right radial access INDICATION: Unstable angina, syncope, dyspnea on exertion, fatigue CONSENT: I have explained the procedural steps of above-mentioned procedures in layman's terms to the patient. I discussed the risks (including but not limited to stroke, emergent vascular or cardiac surgery or ), benefits and alternative therapies for the above-mentioned procedure. I discussed the risks of sedation/analgesia and blood product administration (if indicated). The patient has indicated understanding and acceptance of these risks. Conscious Sedation: Patient's ECG, heart rate, blood pressure, pulse oximetry were monitored throughout the duration of procedure under my direct supervision. 1 mg Versed and 50 mcg Fentanyl were used for induction of moderate conscious sedation. Total duration of moderate concious sedation 12 minutes. PROCEDURAL DETAILS: Patient was prepped and draped in sterile fashion. 1% lidocaine was infiltrated over the right radial artery. Right radial access was obtained via modified seldinger technique. . Medications: 5mg of verapamil was administed in the radial sheet. 3500 Units of Heparin was administed once the catheter reached the aortic root Wires and Catheter used: J wire was advanced under fluroscopy to get to aortic root. 5 botswanan JR 4 diagnostic catheter was utilized obtain left ventricular pressure and pressure gradint across aortic valve. 5 b[place]an JR 4 diagnostic catheter was used to selectively engage the right coronary ostium. 5 botswanan JL 3.5 diagnostic catheter was utilized to selectively engage the left coronary ostium. Angiographic images were reviewed in detail. Catheter and wire were removed. Radial sheet was flushed. The right radial sheath was removed and a TR band was placed. Patent hemostasis was achieved. The patient tolerated the procedure well. Patient was transported back to the post catheterization holding area in stable condition. TECHNICAL DETAILS Total radiation: 27 mGy Total contrast used: Isovue 30 ml Complications: [none] Estimated Blood loss: less than 15 ml HEMODYNAMICS: LVEDP 12 mmHg There was no significant gradient across the aortic valve. SELECTIVE CORONARY ARTERIOGRAPHY: LEFT MAIN: The left main is short and large caliber vessel. It bifurcates into the LAD and circumflex. Left main appears angiographically normal. LEFT ANTERIOR DESCENDING CORONARY ARTERY: LAD is a large caliber vessel which wraps around to the apex. Proximal LAD appears angiographically normal. Mid LAD appears angiographically normal. Distal LAD appears angiographically normal. Mid LAD gives rise to a medium size diagonal branch which appears angiographically patent. LEFT CIRCUMFLEX CORONARY ARTERY: It is nondominant vessel. Proximal LCx is angiographically patent. Proximal LCx just after its origin trifurcates into 2 large OM branches and a small AV groove branch. All this branches appears angiographically patent. RIGHT CORONARY ARTERY: Dominant vessel. The right coronary artery is a large caliber vessel which gives PDA and PLV branch. It appears angiographically normal. IMPRESSION: Angiographically patent coronary arteries as described above Normal left sided filling pressures PLAN: 125 cc/h for 4 hours Further medical evaluation for her cardiac symptomatology which is not related to coronary artery disease. Recommend outpatient follow-up Performing Physician Juwan Tavares MD, FACC, RPVI Thank you for allowing [facility] to participate in this patient's care. Feel free to reach out in case of any followup questions.
[2025-01-14] MEDS ORDERED: SODIUM CHLORIDE 0.9% 1,000 ML IV SCH (12:15)
--- NOTE | 2025-01-14 12:36 | P.CRDCN ---
History of Present Illness Consult date: 01/14/25 Reason for Consult (text): Syncope and chest pain History of present illness: This is a 79-year-old female patient of Dr. Tavares with past medical history of hypertension, dyslipidemia, hypothyroidism. We have been asked to evaluate the patient for chest pain and syncope. Patient gives history that she is having attacks of heaviness in her chest. Following that she develops an odd smell in her nose that "goes to her head" and then she feels weak. The symptoms usually happen when she is walking but yesterday she was standing in a chair just pain pills and she had symptoms and her son told her that she had passed out. Patient thinks that it is related to stress. She denies any previous history of cardiac surgery or stent. Patient denies previous history of diabetes, stroke. She is a non-smoker. Blood pressure 135/70, heart rate 74, pulse ox 98% on room air. Patient is seen today in the emergency center waiting for a bed on the observation unit. Reviewed previous stress test with the patient. She was not told that the stress test was abnormal. Discussed option of cardiac catheterization which she is agreeable to move forward with today. -EKG: Sinus rhythm with no acute ST changes. -Chest x-ray: -Laboratory studies: WBC 5.2, hemoglobin 12. BUN 21 creatinine 1.27 which appears to be about baseline. Troponin negative x 2. -Home cardiac medications: Amlodipine 10 mg daily, aspirin 81 mg daily, atorvastatin 20 mg at bedtime, Imdur 30 mg daily, losartan 25 mg daily, magnesium 250 mg daily, also on levothyroxine. -Outpatient Cardiolite stress test performed 10/20/2024: No EKG evidence of ischemia with Lexiscan infusion. Cardiac catheterization performed 01/14/2025: Patent coronary arteries. Normal left-sided filling pressure. Nuclear reported cannot exclude a subtle area of stress-induced reversible ischemia in the inferior myocardial septum. Review Of Systems: At the time of my exam: CONSTITUTIONAL: Denies fever or chills. HEENT: Denies blurred vision, vision changes, or eye pain. Denies hemoptysis CARDIOVASCULAR: Denies chest pain. Denies orthopnea. Denies PND. Denies palpitations RESPIRATORY: Denies shortness of breath. GASTROINTESTINAL: Denies abdominal pain. Denies nausea or vomiting. HEMATOLOGIC: Denies bleeding disorders. GENITOURINARY: Denies any blood in urine. SKIN: Denies puritis. Denies rash. Physical examination: Gen: This is an 79-year-old female in no acute distress VS: reviewed HEENT: Head is atraumatic, normocephalic. Pupils equal, round. Sclerae is anicteric. NECK: Supple. No JVD. LUNGS: Clear to auscultation. No wheezes or rhonchi. No intercostal retractions. HEART: Regular rate and rhythm. Soft systolic murmur. ABDOMEN: Soft No tenderness. EXTREMITIES: No pedal edema. No calf tenderness. NEUROLOGICAL: Patient is awake, alert and oriented x3. Assessment: Chest pain, acute coronary syndrome ruled out by cardiac catheterization Syncope Hypertension Dyslipidemia Hypothyroidism Plan: Resume patient's home cardiac medications 14-day event monitor to be placed regarding syncope rule out arrhythmia Patient is cleared for discharge from cardiology. Thank you kindly for this consultation. Nurse practitioner note has been reviewed, I agree with documented findings and plan of care. Patient was seen and examined. Past Medical History Past Medical History: COPD, CVA/TIA, GERD/Reflux, Hyperlipidemia, Hypertension, Liver Disease, Osteoarthritis (OA), Renal Disease, Skin Disorder, Syncope, Thyroid Disorder Additional Past Medical History / Comment(s): hx hepatitis b, hx colon polyps, h x TIA- no residual effects, peptic ulcer, hiatal hernia, diarrhea, diverticulitis, diverticulosis, , skin scaling and itching of scalp- dermatitis, urinary leakage, kidney disease -"middle" range. Dr Flores is watching the numbers. season allergies, History of Any Multi-Drug Resistant Organisms: None Reported Past Surgical History: No Surgical Hx Reported Additional Past Surgical History / Comment(s): oral sugery, colonoscopy, kelin cataracts, egd Past Anesthesia/Blood Transfusion Reactions: No Reported Reaction Additional Past Anesthesia/Blood Transfusion Reaction / Comment(s): pt reports hepatitis b from blood transfusion 1967 Past Psychological History: Anxiety, Depression Smoking Status: Never smoker Past Alcohol Use History: None Reported Past Drug Use History: None Reported - Past Family History Father Family Medical History: Cancer Additional Family Medical History / Comment(s): stomach cancer Medications and Allergies Home Medications Medication Instructions Recorded Confirmed Type Aspirin [Adult Low Dose Aspirin EC] 81 mg PO DAILY 10/01/18 01/13/25 History Atorvastatin [Lipitor] 20 mg PO HS 10/01/18 01/13/25 History Levothyroxine Sodium [Synthroid] 25 mcg PO MOTUWETHFRSA 10/01/18 01/13/25 History Mirabegron [Myrbetriq] 50 mg PO DAILY 02/01/20 01/13/25 History Famotidine [Pepcid] 40 mg PO DAILY 08/21/22 01/13/25 History amLODIPine [Norvasc] 10 mg PO DAILY 08/21/22 01/13/25 History Losartan [Cozaar] 25 mg PO DAILY 06/03/23 01/13/25 History Lutein 40 mg PO DAILY 06/03/23 01/13/25 History Ascorbic Acid [Vitamin C] 1,000 mg PO DAILY 01/13/25 01/13/25 History Isosorbide Mononitrate ER [Imdur] 30 mg PO DAILY 01/13/25 01/13/25 History Magnesium 250 mg PO DAILY 01/13/25 01/13/25 History Sertraline [Zoloft] 150 mg PO HS 01/13/25 01/13/25 History traZODone HCL 150 mg PO HS 01/13/25 01/13/25 History Allergies Allergy/AdvReac Type Severity Reaction Status Date / Time No Known Allergies Allergy Verified 01/13/25 20:31 Physical Exam Vitals: Vital Signs Temp Pulse Resp BP Pulse Ox 01/14/25 07:35 71 15 118/57 94 L 01/14/25 06:31 63 16 105/52 95 01/14/25 05:00 65 17 113/59 95 01/14/25 02:30 62 17 91/55 93 L 01/13/25 20:26 97.9 F 74 17 136/51 96 Intake and Output 01/13/25 01/14/25 01/14/25 22:59 06:59 14:59 Other: Weight 60.328 kg Results 01/13/25 21:25 01/13/25 21:25 Cardiac Enzymes 01/13/25 Range/Units 21:25 Troponin I <0.012 (0.000-0.034) ng/mL CBC 01/13/25 Range/Units 21:25 WBC 5.2 (3.8-10.6) k/uL RBC 3.79 L (3.80-5.40) m/uL Hgb 12.0 (11.4-16.0) gm/dL Hct 36.3 (34.0-46.0) % Plt Count 263 (150-450) k/uL Comprehensive Metabolic Panel 01/13/25 Range/Units 21:25 Sodium 138 (137-145) mmol/L Potassium 3.9 (3.5-5.1) mmol/L Chloride 99 (98-107) mmol/L Carbon Dioxide 30 (22-30) mmol/L BUN 21 H (7-17) mg/dL Creatinine 1.27 H (0.52-1.04) mg/dL Glucose 106 H (74-99) mg/dL Calcium 9.6 (8.4-10.2) mg/dL Current Medications Generic Name Dose Route Start Last Admin Trade Name Freq PRN Reason Stop Dose Admin Sodium Chloride 1,000 mls @ 20 mls/hr 01/13/25 22:45 01/14/25 00:28 Saline 0.9% IV 20 mls/hr .Q24H MARIA Administration Naloxone HCl 0.2 mg 01/13/25 22:33 Naloxone 0.4 Mg/Ml 1 Ml Vial IV Q2M PRN Opioid Reversal Intake and Output 01/13/25 01/14/25 01/14/25 22:59 06:59 14:59 Other: Weight 60.328 kg 01/13/25 21:25 01/13/25 21:25
--- NOTE | 2025-01-14 12:46 | P.HPIM ---
History of Present Illness H&P Date: 01/14/25 History of present illness; patient 79-year-old lady patient is a 79-year-old lady with past medical history significant for hypothyroidism, hypertension, hyperlipidemia who presented to the ER because of chest pain and a syncopal episode. Patient was seen in the ER earlier for similar complaints at which time patient was advised to be admitted but patient refused. Patient was was initially seen yesterday in the ER for chest pressure that was central in location, brought on by exertion and relieved by rest, nonradiating, associate with shortness of breath and nausea. There was no complaint of diaphoresis. At that time ER recommended patient to be admitted but she refused and left the hospital. Once patient went home she had another episode where she started having chest pain that was sudden in onset, central and following that patient passed out for 5 to 10 seconds. There was no jerking movement of any extremity. Patient did not lose any control over bowel or urine. There was no postictal confusion. Patient was rushed back to the ER by her son. Initial lab work done in the ER showed WBC 5.2, hemoglobin 12, platelet count 263, sodium 130, potassium 3.9, BUN 21, creatinine 1.27 troponin 0.012 EKG done in the ER showed heart rate of 67, no ST segment elevation or depression seen, no T-wave inversions seen. Patient admitted to internal medicine service REVIEW OF SYSTEMS: CONSTITUTIONAL: No fever, no malaise, no fatigue. HEENT: No recent visual problems or hearing problems. Denied any sore throat. CARDIOVASCULAR: As mentioned above PULMONARY: As mentioned above GASTROINTESTINAL: No diarrhea, no nausea, no vomiting, no abdominal pain. NEUROLOGICAL: No headaches, no weakness, no numbness. HEMATOLOGICAL: Denies any bleeding or petechiae. GENITOURINARY: Denies any burning micturition, frequency, or urgency. MUSCULOSKELETAL/RHEUMATOLOGICAL: Denies any joint pain, swelling, or any muscle pain. ENDOCRINE: Denies any polyuria or polydipsia. The rest of the 14-point review of systems is negative. PHYSICAL EXAMINATION: GENERAL: The patient is alert and oriented x3, not in any acute distress. Well developed, well nourished. HEENT: Pupils are round and equally reacting to light. EOMI. No scleral icterus. No conjunctival pallor. Normocephalic, atraumatic. No pharyngeal erythema. No thyromegaly. CARDIOVASCULAR: S1 and S2 present. No murmurs, rubs, or gallops. PULMONARY: Chest is clear to auscultation, no wheezing or crackles. ABDOMEN: Soft, nontender, nondistended, normoactive bowel sounds. No palpable organomegaly. MUSCULOSKELETAL: No joint swelling or deformity. EXTREMITIES: No cyanosis, clubbing, or pedal edema. NEUROLOGICAL: Gross neurological examination did not reveal any focal deficits. SKIN: No rashes. Assessment and plan Chest pain, rule out acute coronary syndrome Syncope Hypertension Hyperlipidemia Hypothyroidism Monitor vital signs Monitor CBC Monitor CMP Continue telemetry monitoring Trend troponin Ordered 2D echo Ordered D-dimer Resume Synthroid Resume Lipitor Hold blood pressure medications patient is currently normotensive Consult c cardiology Labs and medication were reviewed.. Continue same treatment. Continue with symptomatic treatment. Resume home medication. Monitor labs and vitals. DVT and GI prophylaxis. Further recommendations as per clinical course of the patient Dictation was produced using [employer] dictation software. please excuse any grammatical, word or spelling errors. Past Medical History Past Medical History: COPD, CVA/TIA, GERD/Reflux, Hyperlipidemia, Hypertension, Liver Disease, Osteoarthritis (OA), Renal Disease, Skin Disorder, Syncope, Thyroid Disorder Additional Past Medical History / Comment(s): hx hepatitis b, hx colon polyps, hx TIA- no residual effects, peptic ulcer, hiatal hernia, diarrhea, diverticuli tis, diverticulosis, , skin scaling and itching of scalp- dermatitis, urinary leakage, kidney disease -"middle" range. Dr Flores is watching the numbers. season allergies, History of Any Multi-Drug Resistant Organisms: None Reported Past Surgical History: No Surgical Hx Reported Additional Past Surgical History / Comment(s): oral sugery, colonoscopy, kelin cataracts, egd Past Anesthesia/Blood Transfusion Reactions: No Reported Reaction Additional Past Anesthesia/Blood Transfusion Reaction / Comment(s): pt reports hepatitis b from blood transfusion 1967 Past Psychological History: Anxiety, Depression Smoking Status: Never smoker Past Alcohol Use History: None Reported Past Drug Use History: None Reported - Past Family History Father Family Medical History: Cancer Additional Family Medical History / Comment(s): stomach cancer Medications and Allergies Home Medications Medication Instructions Recorded Confirmed Type Aspirin [Adult Low Dose Aspirin EC] 81 mg PO DAILY 10/01/18 01/13/25 History Atorvastatin [Lipitor] 20 mg PO HS 10/01/18 01/13/25 History Levothyroxine Sodium [Synthroid] 25 mcg PO MOTUWETHFRSA 10/01/18 01/13/25 His tory Mirabegron [Myrbetriq] 50 mg PO DAILY 02/01/20 01/13/25 History Famotidine [Pepcid] 40 mg PO DAILY 08/21/22 01/13/25 History amLODIPine [Norvasc] 10 mg PO DAILY 08/21/22 01/13/25 History Losartan [Cozaar] 25 mg PO DAILY 06/03/23 01/13/25 History Lutein 40 mg PO DAILY 06/03/23 01/13/25 History Ascorbic Acid [Vitamin C] 1,000 mg PO DAILY 01/13/25 01/13/25 History Isosorbide Mononitrate ER [Imdur] 30 mg PO DAILY 01/13/25 01/13/25 History Magnesium 250 mg PO DAILY 01/13/25 01/13/25 History Sertraline [Zoloft] 150 mg PO HS 01/13/25 01/13/25 History traZODone HCL 150 mg PO HS 01/13/25 01/13/25 History Allergies Allergy/AdvReac Type Severity Reaction Status Date / Time No Known Allergies Allergy Verified 01/13/25 20:31 Physical Exam Vitals: Vital Signs Temp Pulse Resp BP Pulse Ox 01/14/25 07:35 71 15 118/57 94 L 01/14/25 06:31 63 16 105/52 95 01/14/25 05:00 65 17 113/59 95 01/14/25 02:30 62 17 91/55 93 L 01/13/25 20:26 97.9 F 74 17 136/51 96 Intake and Output 01/13/25 01/14/25 01/14/25 22:59 06:59 14:59 Other: Weight 60.328 kg Results CBC & Chem 7: 01/13/25 21:25 01/13/25 21:25 Labs: Abnormal Lab Results - Last 24 Hours (Table) 01/13/25 01/13/25 Range/Units 21:25 21:25 RBC 3.79 L (3.80-5.40) m/uL BUN 21 H (7-17) mg/dL Creatinine 1.27 H (0.52-1.04) mg/dL Glucose 106 H (74-99) mg/dL
[2025-01-14 15:57] VITALS: RESP 16
[2025-01-14 16:22] VITALS: PULSE 66
[2025-01-14 16:27] VITALS: BP 117/54
--- NOTE | 2025-01-14 20:58 | CA ---
Transthoracic Echo Report Name: Maura Beckwith Age: 79 Gender: F : 1945 Exam Date: 01/14/2025 15:43 Exam Location: [facility] Echo Ht (in): 65 Wt (lb): 133 Ordering Physician: Arden Hare MD Attending/Referring Phys: [facility] Lida Vega RDCS Procedure CPT: Indications: chest pain, syncope Cardiac Hx: Technical Quality: Good Contrast 1: Total Dose (mL): Contrast 2: Total Dose (mL): MEASUREMENTS (Male / Female) Normal Values 2D ECHO LV Diastolic Diameter PLAX 4.6 cm 4.2 - 5.9 / 3.9 - 5.3 cm LV Systolic Diameter PLAX 3.1 cm IVS Diastolic Thickness 0.6 cm 0.6 - 1.0 / 0.6 - 0.9 cm LVPW Diastolic Thickness 0.6 cm 0.6 - 1.0 / 0.6 - 0.9 cm LV Relative Wall Thickness 0.3 LVOT Diameter 2.1 cm LV Diastolic Volume MOD BP 75.8 cm??? 67 - 155 / 56 - 104 cm??? LV Systolic Volume MOD BP 28.2 cm??? 22 - 58 / 19 - 49 cm??? LV Ejection Fraction MOD BP 62.8 % >= 55 % LV Cardiac Index MOD BP 1914.3 cm???/min???m??? LV Diastolic Volume MOD 4C 70.8 cm??? LV Systolic Volume MOD 4C 25.3 cm??? LV Ejection Fraction MOD 4C 64.3 % LV Cardiac Index MOD 4C 1830.4 cm???/min???m??? LV Diastolic Length 4C 6.9 cm LV Systolic Length 4C 5.8 cm LV Diastolic Volume MOD 2C 80.3 cm??? LV Systolic Volume MOD 2C 29.4 cm??? LV Ejection Fraction MOD 2C 63.4 % LV Cardiac Index MOD 2C 2045.0 cm???/min???m??? LV Diastolic Length 2C 7.1 cm LV Systolic Length 2C 5.4 cm LA Volume 37.9 cm??? 18 - 58 / 22 - 52 cm??? LA Volume Index 22.7 cm???/m??? 16 - 28 cm???/m??? Ascending Aorta Diameter 3.3 cm DOPPLER AV Peak Velocity 140.6 cm/s AV Peak Gradient 7.9 mmHg AV Mean Velocity 103.1 cm/s AV Mean Gradient 4.6 mmHg AV Velocity Time Integral 36.4 cm LVOT Peak Velocity 93.8 cm/s LVOT Peak Gradient 3.5 mmHg LVOT Velocity Time Integral 21.9 cm LVOT Stroke Volume 79.1 cm??? LVOT Stroke Volume Index 47.5 ml/m??? LVOT Cardiac Index 3179.5 cm???/min???m??? AV Area Cont Eq vti 2.2 cm??? AV Area Cont Eq pk 2.4 cm??? MV Area PHT 3.2 cm??? Mitral E Point Velocity 65.0 cm/s Mitral A Point Velocity 81.2 cm/s Mitral E to A Ratio 0.8 MV Deceleration Time 235.6 ms TR Peak Velocity 262.1 cm/s TR Peak Gradient 27.5 mmHg Right Atrial Pressure 5.0 mmHg Pulmonary Artery Systolic Pressu 32.5 mmHg Right Ventricular Systolic Press 32.5 mmHg PV Peak Velocity 72.3 cm/s PV Peak Gradient 2.1 mmHg FINDINGS Left Ventricle Left ventricular ejection fraction is estimated at 60 %. Left ventricular cavity size normal. Left ventricular wall thickness normal. No obvious regional wall motion abnormalities. Right Ventricle Normal right ventricular size and function. Right ventricular systolic pressure within normal limits. Right Atrium Normal right atrial size. Left Atrium Normal left atrial size. Mitral Valve Structurally normal mitral valve. No evidence for mitral valve prolapse. No mitral stenosis. Trace mitral regurgitation. Aortic Valve Trileaflet aortic valve. No aortic valve stenosis or regurgitation. Tricuspid Valve Structurally normal tricuspid valve. No tricuspid stenosis. Mild tricuspid regurgitation. Pulmonic Valve Structurally normal pulmonic valve. No pulmonic stenosis. Trace pulmonic regurgitation. Pericardium No pericardial effusion. Aorta Normal size aortic root and proximal ascending aorta. CONCLUSIONS Normal biventricular systolic function Normal pulmonary artery systolic pressure No significant valvular abnormalities noted No pericardial effusion Previewed by: Dr. Isidoro Slaughter MD (Electronically Signed) Final Date: 14 January 2025 20:57
[2025-01-14] MEDS ORDERED: SERTRALINE 50 MG TAB PO SCH (21:00)
[2025-01-14] MEDS ORDERED: traZODone HCL 50 MG TAB PO SCH (21:00)
[2025-01-15] MEDS ORDERED: LEVOTHYROXINE 25 MCG TAB PO SCH (06:30)
[2025-01-15] MEDS ORDERED: NON FORMULARY DRUG (Lutein [Lutein] 20 MG Capsule) PO SCH (09:00)
[2025-01-15] MEDS ORDERED: NON FORMULARY DRUG (Mirabegron [Myrbetriq] 50 MG Tab.Er.24h) PO SCH (09:00)
[2025-01-15] MEDS ORDERED: MAGNESIUM OXIDE 400 MG TAB PO SCH (09:00)
[2025-01-15] MEDS ORDERED: ATORVASTATIN 20 MG TAB PO SCH (21:00)
--- NOTE | 2025-01-16 08:59 | P.DS ---
Providers Date of admission: 01/13/25 22:34 Expected date of discharge: 01/15/25 Attending physician: Lindsay Campos Consults: 01/13/25 22:33 Consult Physician Routine Consulting Provider: Isidoro Slaughter Consult Reason/Comments: chest pain, syncope Do you want consulting provider notified?: Yes Primary care physician: [facility] Course: Discharge diagnoses; Chest pain,acute coronary syndrome ruled out Syncope Hypertension Hyperlipidemia Hypothyroidism Hospital course; patient 79-year-old lady patient is a 79-year-old lady with past medical history significant for hypothyroidism, hypertension, hyperlipidemia who presented to the ER because of chest pain and a syncopal episode. Patient was seen in the ER earlier for similar complaints at which time patient was advised to be admitted but patient refused. Patient was was initially seen yesterday in the ER for chest pressure that was central in location, brought on by exertion and relieved by rest, nonradiating, associate with shortness of breath and nausea. There was no complaint of diaphoresis. At that time ER recommended patient to be admitted but she refused and left the hospital. Once patient went home she had another episode where she started having chest pain that was sudden in onset, central and following that patient passed out for 5 to 10 seconds. There was no jerking movement of any extremity. Patient did not lose any control over bowel or urine. There was no postictal confusion. Patient was rushed back to the ER by her son. Initial lab work done in the ER showed WBC 5.2, hemoglobin 12, platelet count 263, sodium 130, potassium 3.9, BUN 21, creatinine 1.27 troponin 0.012 EKG done in the ER showed heart rate of 67, no ST segment elevation or depression seen, no T-wave inversions seen. Patient admitted to internal medicine service Cardiology evaluation, recommending doing cardiac cath. Cardiac cath done showed normal coronaries. 2D echo done showed normal systolic function with no significant valvular abnormalities. Cardiology cleared the patient for discharge PHYSICAL EXAMINATION: GENERAL: The patient is alert and oriented x3, not in any acute distress. Well developed, well nourished. HEENT: Pupils are round and equally reacting to light. EOMI. No scleral icterus. No conjunctival pallor. Normocephalic, atraumatic. No pharyngeal erythema. No thyromegaly. CARDIOVASCULAR: S1 and S2 present. No murmurs, rubs, or gallops. PULMONARY: Chest is clear to auscultation, no wheezing or crackles. ABDOMEN: Soft, nontender, nondistended, normoactive bowel sounds. No palpable organomegaly. MUSCULOSKELETAL: No joint swelling or deformity. EXTREMITIES: No cyanosis, clubbing, or pedal edema. NEUROLOGICAL: Gross neurological examination did not reveal any focal deficits. SKIN: No rashes. Dictation was produced using [employer] dictation software. please excuse any grammatical, word or spelling errors. Patient Condition at Discharge: Fair Plan - Discharge Summary New Discharge Prescriptions: Continue Aspirin [Adult Low Dose Aspirin EC] 81 mg PO DAILY Levothyroxine Sodium [Synthroid] 25 mcg PO MOTUWETHFRSA Atorvastatin [Lipitor] 20 mg PO HS Mirabegron [Myrbetriq] 50 mg PO DAILY amLODIPine [Norvasc] 10 mg PO DAILY Famotidine [Pepcid] 40 mg PO DAILY Lutein 40 mg PO DAILY traZODone HCL 150 mg PO HS Sertraline [Zoloft] 150 mg PO HS Magnesium 250 mg PO DAILY Ascorbic Acid [Vitamin C] 1,000 mg PO DAILY Losartan [Cozaar] 25 mg PO DAILY Isosorbide Mononitrate ER [Imdur] 30 mg PO DAILY Discharge Medication List Aspirin [Adult Low Dose Aspirin EC] 81 mg PO DAILY 10/01/18 [History] Atorvastatin [Lipitor] 20 mg PO HS 10/01/18 [History] Levothyroxine Sodium [Synthroid] 25 mcg PO MOTUWETHFRSA 10/01/18 [History] Mirabegron [Myrbetriq] 50 mg PO DAILY 02/01/20 [History] Famotidine [Pepcid] 40 mg PO DAILY 08/21/22 [History] amLODIPine [Norvasc] 10 mg PO DAILY 08/21/22 [History] Losartan [Cozaar] 25 mg PO DAILY 06/03/23 [History] Lutein 40 mg PO DAILY 06/03/23 [History] Ascorbic Acid [Vitamin C] 1,000 mg PO DAILY 01/13/25 [History] Isosorbide Mononitrate ER [Imdur] 30 mg PO DAILY 01/13/25 [History] Magnesium 250 mg PO DAILY 01/13/25 [History] Sertraline [Zoloft] 150 mg PO HS 01/13/25 [History] traZODone HCL 150 mg PO HS 01/13/25 [History] Follow up Appointment(s)/Referral(s): Juwan Tavares MD [Medical Doctor] - 01/25/25 2:45 pm Parker Nguyen DO [Primary Care Provider] - 1-2 days Patient Instructions/Handouts: Moderate Sedation (DC), After Radial Heart Catheterization (GEN), Left Heart Catheterization (DC) Activity/Diet/Wound Care/Special Instructions: Event Monitor as per Nuclear Medicine staff No flexing/bending/pushing/pulling/lifting greater than 5 pounds x5 days No submersion of right wrist in pools/hot tubs/bath tubs/dish water x3 days No driving x2 days Follow up Fall risk/safety precautions Encourage fluids x2 days No changes with home medications Discharge Disposition: HOME SELF-CARE
== END 2025-01-14 16:27 | disposition home or self-care (01) ==
LOC: EC 20:25 → 6NMEDSUR 22:34
PROVIDERS: ADMIT Hospitalist; ATTEND Hospitalist
DX: R07.89 Other chest pain (principal); R55 Syncope and collapse; R06.02 Shortness of breath; R11.0 Nausea; I10 Essential (primary) hypertension; E78.5 Hyperlipidemia, unspecified; E03.9 Hypothyroidism, unspecified; Z79.82 Long term (current) use of aspirin; Z79.890 Hormone replacement therapy; Z79.899 Other long term (current) drug therapy
CPT/HCPCS: 99285; 36415; 93005; 93306; 93270; 93458; 85379; 80048; 83735; 84484 ×2; 85025; G0378 ×2; C1769 ×2; C1894; J2250; J1644 ×3; J2003; J3010; Q9967

== ENCOUNTER 2025-03-11 09:45 | Emergency (ER) | payer MEDICARE ==
--- NOTE | 2025-03-11 10:16 | ED ---
Weakness HPI - General Chief complaint: Weakness Stated complaint: Weakness Time Seen by Provider: 03/11/25 10:15 Source: patient, RN notes reviewed, old records reviewed Mode of arrival: wheelchair Limitations: no limitations - History of Present Illness Initial comments: 79-year-old female with a past medical history significant of COPD, hyp ertension, hyperlipidemia, thyroid disorder presenting to the ER for evaluation of weakness. Patient reports on July 2024 she has been having these weakness episodes. She states episodes will start with a smell in her nose and then shortly after patient feels extremely weak. Patient states today she had another episode which made it difficult for her to ambulate to the other room as her legs felt like they were going to "give out". Patient was admitted in the hospital numerous times for this complaint with negative workup. Patient denies any syncope, chest pain, shortness of breath, fevers or chills. She does report a recent cough but contributes this to allergies. She denies any nausea, vomiting, diarrhea, abdominal pain or peripheral edema. Patient has not taken anything for symptoms at this time. Patient denies any current dizziness or lightheadedness. Patient has no other complaints. - Related Data Home Medications Medication Instructions Recorded Confirmed Aspirin [Adult Low Dose Aspirin EC] 81 mg PO DAILY 10/01/18 01/13/25 Atorvastatin [Lipitor] 20 mg PO HS 10/01/18 01/13/25 Levothyroxine Sodium [Synthroid] 25 mcg PO [id number] 10/01/18 01/13/25 Mirabegron [Myrbetriq] 50 mg PO DAILY 02/01/20 01/13/25 Famotidine [Pepcid] 40 mg PO DAILY 08/21/22 01/13/25 amLODIPine [Norvasc] 10 mg PO DAILY 08/21/22 01/13/25 Losartan [Cozaar] 25 mg PO DAILY 06/03/23 01/13/25 Lutein 40 mg PO DAILY 06/03/23 01/13/25 Ascorbic Acid [Vitamin C] 1,000 mg PO DAILY 01/13/25 01/13/25 Isosorbide Mononitrate ER [Imdur] 30 mg PO DAILY 01/13/25 01/13/25 Magnesium 250 mg PO DAILY 01/13/25 01/13/25 Sertraline [Zoloft] 150 mg PO HS 01/13/25 01/13/25 traZODone HCL 150 mg PO HS 01/13/25 01/13/25 Allergies Allergy/AdvReac Type Severity Reaction Status Date / Time No Known Allergies Allergy Verified 03/11/25 09:57 Review of Systems ROS Statement: Those systems with pertinent positive or pertinent negative responses have been documented in the HPI. ROS Other: All systems not noted in ROS Statement are negative. Past Medical History Past Medical History: COPD, CVA/TIA, GERD/Reflux, Hyperlipidemia, Hypertension, Liver Disease, Osteoarthritis (OA), Renal Disease, Skin Disorder, Syncope, Thyroid Disorder Additional Past Medical History / Comment(s): hx hepatitis b, hx colon polyps, hx TIA- no residual effects, peptic ulcer, hiatal hernia, diarrhea, diverticulitis, diverticulosis, , skin scaling and itching of scalp- dermatitis, urinary leakage, kidney disease -"middle" range. Dr Flores is watching the numbers. season allergies, History of Any Multi-Drug Resistant Organisms: None Reported Past Surgical History: No Surgical Hx Reported Additional Past Surgical History / Comment(s): oral sugery, colonoscopy, kelin cataracts, egd Past Anesthesia/Blood Transfusion Reactions: No Reported Reaction Additional Past Anesthesia/Blood Transfusion Reaction / Comment(s): pt reports hepatitis b from blood transfusion 1967 Past Psychological History: Anxiety, Depression Smoking Status: Never smoker Past Alcohol Use History: None Reported Past Drug Use History: None Reported - Past Family History Father Family Medical History: Cancer Additional Family Medical History / Comment(s): stomach cancer General Exam Limitations: no limitations General appearance: alert, in no apparent distress Respiratory exam: Present: normal lung sounds bilaterally. Absent: respiratory distress, wheezes, rales, rhonchi, stridor Cardiovascular Exam: Present: regular rate, normal rhythm, normal heart sounds. Absent: systolic murmur, diastolic murmur, rubs, gallop, clicks GI/Abdominal exam: Present: soft, normal bowel sounds. Absent: distended, tenderness, guarding, rebound, rigid Neurological exam: Present: alert, oriented X3, CN II-XII intact Skin exam: Present: warm, dry, intact, normal color. Absent: rash Course Vital Signs 03/11/25 03/11/25 03/11/25 09:52 10:15 12:15 Temperature 97.7 F 97.6 F 97.9 F Pulse Rate 64 62 65 Respiratory 18 16 18 Rate Blood Pressure 132/71 139/81 152/73 O2 Sat by Pulse 99 100 98 Oximetry - Reevaluation(s) Reevaluation #1: 03/11/25 11:50 Patient reevaluated no signs of acute distress. Patient reporting total resolution of symptoms and is requesting discharge as she would like to go shopping at [employer]. Patient updated on laboratory results. EKG Findings - EKG Comments: EKG Findings:: EKG taken at 10: 04 showing a sinus rhythm. No ST segment elevations or depressions. No T wave inversions. Ventricular rate 70, LA interval 157, QRS duration 83, QT/QTc 385/406. Medical Decision Making - Medical Decision Making Was pt. sent in by a medical professional or institution (, [facility], MANAGER [employer], urgent care, hospital, or care home...) When possible be specific @ -No Did you speak to anyone other than the patient for history (EMS, parent, family, police, friend...)? What history was obtained from this source @ -No Did you review nursing and triage notes (agree or disagree)? Why? @ -I reviewed and agree with nursing and triage notes Were old charts reviewed (outside hosp., previous admission, EMS record, old EKG, old radiological studies, urgent care reports/EKG's, care home records)? Report findings @ -Yes, . Patient seen here for chest pain and recommended admission for cardiac rule out. Patient refused and was discharged home. Shortly after discharge patient had a syncopal episode losing consciousness for 5 to 7 seconds and was brought back to the hospital for further evaluation by her son. Patient admitted for cardiac rule out. Cardiac workup, cardiac catheterization and echocardiogram reports reviewed and within normal limits. Workup negative for ACS. Differential Diagnosis (chest pain, altered mental status, abdominal pain women, abdominal pain men, vaginal bleeding, weakness, fever, dyspnea, syncope, headache, dizziness, GI bleed, back pain, seizure, CVA, palpatations, mental health, musculoskeletal)? @ -Differential Weakness:Hypoglycemia, shock, sepsis, hyponatremia, anemia, infection, IL, ETOH, adverse medicine reaction, overdose, stroke, this is not meant to be an all-inclusive list. EKG interpreted by me (3pts min.). @ -As above X-rays interpreted by me (1pt min.). @ -CXR interpreted negative for focal consolidations, pneumothorax or pleural effusions. CT interpreted by me (1pt min.). @ -CT brain showing no acute intracranial process. U/S interpreted by me (1pt. min.). @ -None done What testing was considered but not performed or refused? (CT, X-rays, U/S, labs)? Why? @ -None What meds were considered but not given or refused? Why? @ -None Did you discuss the management of the patient with other professionals (professionals i.e. , PA, MANAGER FORMS, lab, RT, psych nurse, social insurance administrator, windsmith, teacher, examining officer, case briefer)? Give summary @ -No Was smoking cessation discussed for >3mins.? @ -No Was critical care preformed (if so, how long)? @ -No Were there social determinants of health that impacted care today? How? (Homelessness, low income, unemployed, alcoholism, drug addiction, transportation, low edu. Level, literacy, decrease access to med. care, long term, rehab)? @ -No Was there de-escalation of care discussed even if they declined (Discuss DNR or withdrawal of care, Hospice)? DNR status @ -No What co-morbidities impacted this encounter? (DM, HTN, Smoking, COPD, CAD, Cancer, CVA, ARF, Chemo, Hep., AIDS, mental health diagnosis, sleep apnea, morbid obesity)? @ -None Was patient admitted / discharged? Hospital course, mention meds given and route, prescriptions, significant lab abnormalities, going to OR and other pertinent info. @ -Discharged. 79 year old female presenting to the ER for evaluation of weakness. Upon rooming history and physical exam completed. Vitals within acceptable limits. Patient no signs of acute distress nontoxic-appearing. Patient is well appearing. No acute neurological findings on exam. Laboratory studies obtained unimpressive. Stage III CKD with a GFR 38, creatinine 1.3 with a BUN of 25 this appears to be at patient's baseline. Troponin undetectable. TSH 0.28 with a free T4.98. Viral swabs negative. Urinalysis with 10 WBCs and 7 RBCs will be sent for culture prior to antibiotic initiation, patient is agreeable to this as she has no current UTI symptoms. CXR negative for acute cardiopulmonary process. CT brain negative for acute intracranial process. Patient recieved IV fluids in ER. Upon reevaluation, patient resting comfortably on stretcher no sign of acutre distress patient reporting improvement of symptoms and is eager for discharge as she would like to go shopping at [employer]. Results discussed with patient, all questions answered. Observation admission was offered to patient for neurology consultation for further evaluation of dizziness, patient refused stating she felt better. Patient displayed medical decision making capabilities. Return parameters discussed. Patient will be discharged in stable condition with follow-up to PCP. Patient verbally expressed understanding and agreement with care plan. Case discussed with ED attending, Dr. Greer. Undiagnosed new problem with uncertain prognosis? @ -No Drug Therapy requiring intensive monitoring for toxicity (Heparin, Nitro, Insulin, Cardizem)? @ -No Were any procedures done? @ -No Diagnosis/symptom? @ -Weakness Acute, or Chronic, or Acute on Chronic? @ -Acute Uncomplicated (without systemic symptoms) or Complicated (systemic symptoms)? @ -Uncomplicated Side effects of treatment? @ -No Exacerbation, Progression, or Severe Exacerbation? @ -No Poses a threat to life or bodily function? How? (Chest pain, USA, IL, pneumonia, PE, COPD, DKA, ARF, appy, cholecystitis, CVA, Diverticulitis, Homicidal, Suicidal, threat to staff... and all critical care pts) @ -No - Lab Data Result diagrams: 03/11/25 10:15 03/11/25 10:15 Lab Results 03/11/25 03/11/25 03/11/25 Range/Units 10:15 10:15 10:15 WBC 4.44 L (4.50-10.00) 10*3/uL RBC 4.24 (4.10-5.20) 10*6/uL Hgb 13.1 (12.0-15.0) g/dL Hct 39.7 (37.2-46.3) % MCV 93.6 (80.0-97.0) fL MCH 30.9 (27.0-32.0) pg MCHC 33.0 (32.0-37.0) g/dL Plt Count 282 (140-440) 10*3/uL MPV 10.3 (9.5-12.2) fL Immature Gran % (Auto) 0 % Neutrophils % 58.1 % Lymphocytes % 25.0 % Monocytes % 11.5 % Eosinophils % 4.5 % Basophils % 0.9 % Immature Gran # 0.00 (0.00-0.04) 10*3/uL Neutrophils # 2.58 (1.80-7.70) 10*3/uL Lymphocytes # 1.11 (0.90-5.00) 10*3/uL Monocytes # 0.51 (0.20-1.00) 10*3/uL Eosinophils # 0.20 (0.04-0.35) 10*3/uL Basophils # 0.04 (0.00-0.10) 10*3/uL PT 10.1 (10.0-12.5) sec INR 0.9 (<1.2) APTT 22.5 (22.0-30.0) sec Sodium 141 (137-145) mmol/L Potassium 4.4 (3.5-5.1) mmol/L Chloride 103 (98-107) mmol/L Carbon Dioxide 30 (22-30) mmol/L Anion Gap 8 mmol/L BUN 25 H (7-17) mg/dL Creatinine 1.32 H (0.52-1.04) mg/dL Est GFR (CKD-EPI)AfAm 44 (>60 ml/min/1.73 sqM) Est GFR (CKD-EPI)NonAf 38 (>60 ml/min/1.73 sqM) Glucose 91 (74-99) mg/dL Plasma Lactic Acid Luis (0.7-2.0) mmol/L Calcium 10.3 H (8.4-10.2) mg/dL Magnesium 2.0 (1.6-2.3) mg/dL Total Bilirubin 0.7 (0.2-1.3) mg/dL AST 30 (14-36) U/L ALT 18 (4-34) U/L Alkaline Phosphatase 61 (38-126) U/L Troponin I (0.000-0.034) ng/mL Total Protein 7.9 (6.3-8.2) g/dL Albumin 4.6 (3.5-5.0) g/dL TSH 0.286 L (0.465-4.680) mIU/L Free T4 0.98 (0.78-2.19) ng/dL Urine Color Urine Appearance (Clear) Urine pH (5.0-8.0) Ur Specific Biggs (1.001-1.035) Urine Protein (Negative) Urine Glucose (UA) (Negative) Urine Ketones (Negative) Urine Blood (Negative) Urine Nitrite (Negative) Urine Bilirubin (Negative) Urine Urobilinogen (<2.0) mg/dL Ur Leukocyte Esterase (Negative) Urine RBC (0-5) /hpf Urine WBC (0-5) /hpf Ur Squamous Epith Cells (0-4) /hpf Urine Bacteria (None) /hpf Hyaline Casts (0-2) /lpf Urine Mucus (None) /hpf Influenza Type A (PCR) (Not Detectd) Influenza Type B (PCR) (Not Detectd) RSV (PCR) (Not Detectd) SARS-CoV-2 (PCR) (Not Detectd) 03/11/25 03/11/25 03/11/25 Range/Units 10:15 10:15 10:20 WBC (4.50-10.00) 10*3/uL RBC (4.10-5.20) 10*6/uL Hgb (12.0-15.0) g/dL Hct (37.2-46.3) % MCV (80.0-97.0) fL MCH (27.0-32.0) pg MCHC (32.0-37.0) g/dL Plt Count (140-440) 10*3/uL MPV (9.5-12.2) fL Immature Gran % (Auto) % Neutrophils % % Lymphocytes % % Monocytes % % Eosinophils % % Basophils % % Immature Gran # (0.00-0.04) 10*3/uL Neutrophils # (1.80-7.70) 10*3/uL Lymphocytes # (0.90-5.00) 10*3/uL Monocytes # (0.20-1.00) 10*3/uL Eosinophils # (0.04-0.35) 10*3/uL Basophils # (0.00-0.10) 10*3/uL PT (10.0-12.5) sec INR (<1.2) APTT (22.0-30.0) sec Sodium (137-145) mmol/L Potassium (3.5-5.1) mmol/L Chloride (98-107) mmol/L Carbon Dioxide (22-30) mmol/L Anion Gap mmol/L BUN (7-17) mg/dL Creatinine (0.52-1.04) mg/dL Est GFR (CKD-EPI)AfAm (>60 ml/min/1.73 sqM) Est GFR (CKD-EPI)NonAf (>60 ml/min/1.73 sqM) Glucose (74-99) mg/dL Plasma Lactic Acid Luis 0.8 (0.7-2.0) mmol/L Calcium (8.4-10.2) mg/dL Magnesium (1.6-2.3) mg/dL Total Bilirubin (0.2-1.3) mg/dL AST (14-36) U/L ALT (4-34) U/L Alkaline Phosphatase (38-126) U/L Troponin I <0.012 (0.000-0.034) ng/mL Total Protein (6.3-8.2) g/dL Albumin (3.5-5.0) g/dL TSH (0.465-4.680) mIU/L Free T4 (0.78-2.19) ng/dL Urine Color Urine Appearance (Clear) Urine pH (5.0-8.0) Ur Specific Biggs (1.001-1.035) Urine Protein (Negative) Urine Glucose (UA) (Negative) Urine Ketones (Negative) Urine Blood (Negative) Urine Nitrite (Negative) Urine Bilirubin (Negative) Urine Urobilinogen (<2.0) mg/dL Ur Leukocyte Esterase (Negative) Urine RBC (0-5) /hpf Urine WBC (0-5) /hpf Ur Squamous Epith Cells (0-4) /hpf Urine Bacteria (None) /hpf Hyaline Casts (0-2) /lpf Urine Mucus (None) /hpf Influenza Type A (PCR) Not Detected (Not Detectd) Influenza Type B (PCR) Not Detected (Not Detectd) RSV (PCR) Not Detected (Not Detectd) SARS-CoV-2 (PCR) Not Detected (Not Detectd) 03/11/25 Range/Units 10:58 WBC (4.50-10.00) 10*3/uL RBC (4.10-5.20) 10*6/uL Hgb (12.0-15.0) g/dL Hct (37.2-46.3) % MCV (80.0-97.0) fL MCH (27.0-32.0) pg MCHC (32.0-37.0) g/dL Plt Count (140-440) 10*3/uL MPV (9.5-12.2) fL Immature Gran % (Auto) % Neutrophils % % Lymphocytes % % Monocytes % % Eosinophils % % Basophils % % Immature Gran # (0.00-0.04) 10*3/uL Neutrophils # (1.80-7.70) 10*3/uL Lymphocytes # (0.90-5.00) 10*3/uL Monocytes # (0.20-1.00) 10*3/uL Eosinophils # (0.04-0.35) 10*3/uL Basophils # (0.00-0.10) 10*3/uL PT (10.0-12.5) sec INR (<1.2) APTT (22.0-30.0) sec Sodium (137-145) mmol/L Potassium (3.5-5.1) mmol/L Chloride (98-107) mmol/L Carbon Dioxide (22-30) mmol/L Anion Gap mmol/L BUN (7-17) mg/dL Creatinine (0.52-1.04) mg/dL Est GFR (CKD-EPI)AfAm (>60 ml/min/1.73 sqM) Est GFR (CKD-EPI)NonAf (>60 ml/min/1.73 sqM) Glucose (74-99) mg/dL Plasma Lactic Acid Luis (0.7-2.0) mmol/L Calcium (8.4-10.2) mg/dL Magnesium (1.6-2.3) mg/dL Total Bilirubin (0.2-1.3) mg/dL AST (14-36) U/L ALT (4-34) U/L Alkaline Phosphatase (38-126) U/L Troponin I (0.000-0.034) ng/mL Total Protein (6.3-8.2) g/dL Albumin (3.5-5.0) g/dL TSH (0.465-4.680) mIU/L Free T4 (0.78-2.19) ng/dL Urine Color Yellow Urine Appearance Cloudy H (Clear) Urine pH 7.5 (5.0-8.0) Ur Specific Biggs 1.018 (1.001-1.035) Urine Protein Negative (Negative) Urine Glucose (UA) Negative (Negative) Urine Ketones Negative (Negative) Urine Blood Trace H (Negative) Urine Nitrite Negative (Negative) Urine Bilirubin Negative (Negative) Urine Urobilinogen <2.0 (<2.0) mg/dL Ur Leukocyte Esterase Small H (Negative) Urine RBC 7 H (0-5) /hpf Urine WBC 10 H (0-5) /hpf Ur Squamous Epith Cells <1 (0-4) /hpf Urine Bacteria Rare H (None) /hpf Hyaline Casts 4 H (0-2) /lpf Urine Mucus Rare H (None) /hpf Influenza Type A (PCR) (Not Detectd) Influenza Type B (PCR) (Not Detectd) RSV (PCR) (Not Detectd) SARS-CoV-2 (PCR) (Not Detectd) - Radiology Data Radiology results: report reviewed, image reviewed Disposition Clinical Impression: Weakness Disposition: HOME SELF-CARE Condition: Stable Additional Instructions: Follow-up with PCP. Return to the ER for any new or worsening symptoms. Is patient prescribed a controlled substance at d/c from ED?: No Referrals: Parker Nguyen DO [Primary Care Provider] - 1-2 days Time of Disposition: 11:59
[2025-03-11 10:35] LABS: Basophils # (A) 0.04 10*3/uL (0.00-0.10); Basophils % (A) 0.9 %; Eosinophils % (A) 4.5 %; HCT 39.7 % (37.2-46.3); HGB 13.1 g/dL (12.0-15.0); Lymphocytes # (A) 1.11 10*3/uL (0.90-5.00); MCH 30.9 pg (27.0-32.0); MCV 93.6 fL (80.0-97.0); Mean Platelet Volume 10.3 fL (9.5-12.2); Monocytes # (A) 0.51 10*3/uL (0.20-1.00); Monocytes % (A) 11.5 %; Neutrophils # (A) 2.58 10*3/uL (1.80-7.70); Neutrophils % (A) 58.1 %; Platelet Count 282 10*3/uL (140-440); RBC 4.24 10*6/uL (4.10-5.20); RDW 13.6 % (11.5-14.5); WBC 4.44 10*3/uL (4.50-10.00)
[2025-03-11 10:39] LABS: INR 0.9 (<1.2); Partial Thromboplastin Time 22.5 sec (22.0-30.0); Prothrombin Time 10.1 sec (10.0-12.5)
[2025-03-11 10:42] LABS: ALT 18 U/L (4-34); AST 30 U/L (14-36); African American GFR (CKD) 44 (>60 ml/min/1.73 sqM); Albumin 4.6 g/dL (3.5-5.0); Alkaline Phosphatase 61 U/L (38-126); Anion Gap 8 mmol/L; Blood Urea Nitrogen 25 mg/dL (7-17); Calcium 10.3 mg/dL (8.4-10.2); Carbon Dioxide 30 mmol/L (22-30); Chloride 103 mmol/L (98-107); Glucose 91 mg/dL (74-99); Non-African American GFR(CKD) 38 (>60 ml/min/1.73 sqM); Potassium 4.4 mmol/L (3.5-5.1); Sodium 141 mmol/L (137-145); Total Bilirubin 0.7 mg/dL (0.2-1.3); Total Protein 7.9 g/dL (6.3-8.2)
--- NOTE | 2025-03-11 10:50 | CT ---
EXAMINATION TYPE: CT brain wo con CT DLP: 1168.4 mGycm, Automated exposure control for dose reduction was used. DATE OF EXAM: 03/11/2025 10:44 AM COMPARISON: MRI brain 04/02/2022, MRA head 04/02/2022 CLINICAL INDICATION:Female, 79 years old with history of weakness/dizziness, weakness and dizziness TECHNIQUE: Brain: Multiple axial CT images of the brain were obtained without IV contrast. . Coronal and sagitta l reformats reviewed. FINDINGS: Brain: Extra-axial spaces: No abnormal extra-axial fluid collections. Ventricular system: Within normal limits Cerebral parenchyma: No acute intraparenchymal hemorrhage or mass effect. The hicks-white junction is well differentiated. Empty sella morphology. Cerebellum: Unremarkable. Mass effect: No evidence of midline shift. Intracranial vasculature: Atherosclerotic calcifications of the intracranial vessels. Soft tissues: Normal. Calvarium/osseous structures: No depressed skull fracture. Paranasal sinuses and mastoid air cells: Trace inferior right mastoid effusion. The left mastoid air cells are clear. Minimal mucosal thickening of the right anterior ethmoid sinus and inferior right ma xillary sinus. Visualized orbits: Senile calcific scleral plaques are present. Bilateral aphakia. IMPRESSION: No acute intracranial process. [facility], , 03/11/2025 10:47 AM
[2025-03-11] MEDS: SODIUM CHLORIDE 0.9% 500 ML 500 ML IV ONE (10:55)
[2025-03-11 11:03] LABS: Influenza A Not Detected (Not Detectd); Influenza B Not Detected (Not Detectd); RSV Not Detected (Not Detectd)
--- NOTE | 2025-03-11 11:18 | XR ---
EXAMINATION TYPE: XR chest 2V DATE OF EXAM: 03/11/2025 11:05 AM COMPARISON: 01/13/2025 CLINICAL INDICATION: Female, 79 years old with history of Weakness, , TECHNIQUE: PA and lateral views FINDINGS: The cardiomediastinal silhouette, aorta, and pulmonary vasculature are within normal limits. Some kimberly ntration anterior right hemidiaphragm. Some strandy atelectasis anterior lower lung on the lateral vi ew. Otherwise, lungs and pleural spaces are clear. IMPRESSION: No acute cardiopulmonary process. [facility], Workstation: [facility], 03/11/2025 11:16 AM
[2025-03-11 11:19] LABS: Appearance,Urine Cloudy (Clear); Bacteria,Urine Rare /hpf; Bilirubin,Urine Negative (Negative); Blood,Urine Trace (Negative); Color,Urine Yellow; Glucose,Urine (UA) Negative (Negative); Hyaline Casts,Urine 4 /lpf (0-2); Ketones,Urine Negative (Negative); Leukocyte Esterase,Urine Small (Negative); Mucus,Urine Rare /hpf; Nitrite,Urine Negative (Negative); PH, Urine 7.5 (5.0-8.0); Protein,Urine Negative (Negative); RBC,Urine 7 /hpf (0-5); Specific Gravity,Urine 1.018 (1.001-1.035); Squamous Epithelial Cell,Urine <1 /hpf (0-4); Urobilinogen,Urine <2.0 mg/dL (<2.0); WBC,Urine 10 /hpf (0-5)
[2025-03-11 11:43] LABS: T4, Free (Free Thyroxine) 0.98 ng/dL (0.78-2.19)
[2025-03-11 12:17] VITALS: BP 152/73; PULSE 65; RESP 18; TEMP 97.9
== END 2025-03-11 12:17 | disposition home or self-care (01) ==
LOC: EC 09:45
DX: R53.1 Weakness (principal)
CPT/HCPCS: 36415; 70450; 71046; 80053; 81001; 83605; 83735; 84439; 84443; 84484; 85025; 85610; 85730; 87086; 87636; 93005; 99285

== ENCOUNTER → 2025-05-02 | Outpatient (CLI) | payer MEDICARE ==
--- NOTE | 2025-05-02 15:31 | FL ---
EXAMINATION TYPE: FL barium swallow DATE OF EXAM: 05/02/2025 COMPARISON: CLINICAL INDICATION: Female, 79 years old with history of R13.19 OTHER DYSPHAGIA; PHH, pills getting stuck in the upper thorax. History of esophageal ballooning 2-3 years ago. TECHNIQUE: A double contrast esophagram is performed utilizing air and barium. A total of 20 second s of fluoroscopic time was utilized during procedure and 52 images obtained. Total dose area product (DAP) in uGy*m?, mGy*cm? (or similar) n/p. COMPARISON: None FINDINGS: The esophagus shows normal motility and emptying into the stomach. No evidence of fixed hi atal hernia or stricture noted. No significant gastroesophageal reflux was seen during real time perf ormance of this study. IMPRESSION: No significant abnormality is seen to account for patient's symptoms. [facility], , 05/02/2025 3:29 PM
== END | disposition home or self-care (01) ==
LOC: RADFLMAIN 14:32
PROVIDERS: ATTEND Internal Medicine Gastroenterology
DX: R13.19 Other dysphagia (principal)
CPT/HCPCS: 74220